=== PATIENT | female | born 1930 | race Caucasian/White ===

== ENCOUNTER 2018-01-06 16:14 | Inpatient (IN) ==
[2018-01-06] MEDS ORDERED: SALINE FLUSH 10ml SYRINGE IVF PRN (16:25)
--- NOTE | 2018-01-06 16:29 | Emergency Department Report ---
General Adult HPI - General Chief complaint: Shortness of Breath/Dyspnea Stated complaint: CHF exacerbation Time Seen by Provider: 01/06/18 16:25 Source: EMS Mode of arrival: EMS Limitations: altered mental status - History of Present Illness HPI narrative: 87 F presents to the emergency department with a chief complaint of difficulty breathing and alteration in mental status. Patient was seen and evaluated by her primary care physician earlier today and diagnosed with a CHF exacerbation. She was noted by snf staff to be less responsive than normal and to be hypoxic with an oxygen saturation in the 80s on room air. Patient was given Lasix 70 mg IV 1 by EMS prior to arrival to the emergency department. Patient was placed on CPAP prior to arrival to the emergency department as well. History is limited secondary to the patient's clinical condition. - Related Data Home Medications Medication Instructions Recorded Confirmed Acetaminophen [Acetaminophen Extra 1,000 mg PO HS #0 tab 07/01/15 01/06/18 Strength] Cetirizine HCl [Zyrtec] 10 mg PO HS #0 07/01/15 01/06/18 Cholecalciferol (Vitamin D3) 2,000 mg PO DAILY #0 07/01/15 01/06/18 [Vitamin D3] Lutein 20 mg PO DAILY #0 07/01/15 01/06/18 Omeprazole 40 mg PO ACB #0 07/01/15 01/06/18 Furosemide [Lasix 40 mg Tab] 40 mg PO DAILY 07/09/17 01/06/18 PEG 3350 17gm PACKET [Miralax] 17 gm PO DAILY 07/09/17 01/06/18 Spironolactone [Aldactone] 25 mg PO DAILY 07/09/17 01/06/18 Mag Hydrox/Aluminum Hyd/Simeth 30 ml PO Q4H PRN 07/21/17 01/06/18 [Alum-Mag Hydroxide-Simeth Liq] Magnesium Hydroxide [Milk of 15 - 30 ml PO DAILY PRN 07/21/17 01/06/18 Magnesia] Simethicone 125 mg PO HS 07/21/17 01/06/18 Acetaminophen [Tylenol] 500 - 1,000 mg PO BID PRN 01/06/18 01/06/18 Albuterol/Ipratropium [Duoneb] 1 unit AEROSOL TID 01/06/18 01/06/18 Arctic Mary Beth Oil 1,000 mg PO DAILY 01/06/18 01/06/18 Aspirin [Adult Aspirin] 81 mg PO NOON 01/06/18 01/06/18 Atorvastatin [Lipitor] 10 mg PO HS 01/06/18 01/06/18 Budesonide 0.5 mg IH BID 01/06/18 01/06/18 Calcium Carb/Vitamin D3/Vit K1 1 tab PO BID 01/06/18 01/06/18 [Viactiv Soft Chew Tablet] Dextromethorphan HBr/B-Jhonny 1 lozenge PO PRN PRN 01/06/18 01/06/18 [Cepacol Sorethroat-Cough Angela] Guaifenesin/Dextromethorphan 10 ml PO Q6H PRN 01/06/18 01/06/18 [Guaifenesin Dm Syrup] Guaifenesin/Dextromethorphan 10 ml PO HS 01/06/18 01/06/18 [Robitussin Cough-Chest Dm Liq] Multivitamin [One Daily 1 tab PO NOON 01/06/18 01/06/18 Multivitamin] Ondansetron Tab [Zofran Po] 4 mg PO Q8H PRN 01/06/18 01/06/18 Peg 3350 238 G Bottle [Miralax] 17 gm PO DAILY PRN 01/06/18 01/06/18 Tolterodine Tartrate [Detrol] 1 mg PO BID 01/06/18 01/06/18 guaiFENesin [Mucinex] 1,200 mg PO DAILY 01/06/18 01/06/18 Allergies Allergy/AdvReac Type Severity Reaction Status Date / Time No Known Allergies Allergy Verified 01/06/18 16:32 Review of Systems Limitations: ROS unobtainable due to patient's medical condition [facility] Patient Stated Medical History Hypertension Yes Other Cardiology Yes: heart failure Asthma Yes Chronic Obstructive Pulmonary Yes Disease (COPD) Pneumonia Yes Sleep Apnea No Gastroesophageal Reflux Yes Disease Other GI Yes: constipation Hx Incontinence Yes Other Hematologic Yes: THROMBOCYTOPENIA Osteoarthritis Yes Sepsis Yes Post Menopausal Yes Clinic Medical History (Last Updated 07/07/17 @ 13:04 by Laura Holman Mai) Pacemaker (Chronic Medical) Osteoarthritis involving multiple joints on both sides of body (Chronic Medical) Osteoporosis (Chronic Medical) DEXA 10/16/16. R femur T score -2.5 Thrombocytopenia (Chronic Medical) COPD with hypoxia (Chronic Medical) Venous stasis of lower extremity (Chronic Medical) Localized osteoporosis of spine (Chronic Medical) HTN (hypertension) (Chronic Medical) Multinodular goiter (Chronic Medical) Surgical History: Orthopedic surgery, Pacemaker Family History: Reviewed and Noncontributory. - Social History Smoking status: Never smoker Substance use type: does not use Alcohol intake frequency: does not drink Physical Exam - Limitations Limitations: altered mental status - General General appearance: other (Pt will open her eyes to painful stimuli and loud verbal command. Localizes pain. Maintaining and protecting airway on bipap. ) - Normal Exams: Head:: Normocephalic without trauma Eyes:: Pupils are PERRLA w/ EOMI, No scleral icterus, irritation, or foreign bodies noted ENMT:: No facial trauma, nasal exudates, pharyngeal erythema, or exudates are noted Neck:: Full range of motion, without adenopathy, JVD, bruits or thyromegaly Chest/Respirations:: Clear all kim (Coarse breath sounds bilaterally which are diminished. ), with good airflow, and symmetry bilaterally Cardiovascular:: Regular rate and rhythm, without murmur or gallop, Pulses 2+ all extremities, capillary refill, <2 seconds all extremities Abdomen:: Bowel sounds positive, soft, non-tender, non-distended, no hepatosplenomegaly, masses or bruits noted Lymphatic:: No lymphadenopathy, or lymphedema noted Musculoskeletal:: No tenderness, or deformity noted, good range of motion, all extremities Integumentary:: No rashes, hives, or bruising noted, hair and nails, without abnormality Medical Decision Making - [facility] Narrative Medical decision making narrative: Labs / Imaging were discussed in detail with the patient and family and questions are answered. Patient was given Lasix 70 mg IV x 1 by EMS immediately prior to arrival to the ED. Patient was given cefepime 1 g iv x 1 at 1800 when sepsis was considered. Patient was never hypotensive and did not have a lactic acid > 4.0 in the ED. She was discussed with Dr. Michaud from the hospitalist service who was in agreement with the current plan of management. Patient was placed on bipap upon arrival to the ED which she tolerated well and without difficulty. Patient was admitted to the service of the hospitalist in improved condition. No further orders from accepting physician who is in agreement with the current plan of management. Patient and family are in agreement with the current plan of management. Patient is a do not resuscitate which is confirmed with family members. Do not resuscitate form is present at bedside. - Differential Diagnosis CHF, COPD, PNA, Viral syndrome, metabolic disorder - Lab Data Result diagrams: 01/06/18 16:23 01/06/18 16:23 - Radiology Data CT Head: No acute processes. CXR: Impression: Bilateral pleural effusions and findings of significant congestive failure. Underlying pneumonia or aspiration cannot be excluded in the left lower lobe. Recommend clinical and laboratory correlation - EKG Data EKG #1 EKG results narrative: Electronic Ventricular Paced Rhythm. 101 bpm. NO STEMI. Critical Care Time Critical Care Time: Yes Total Critical Care Time: 47 Attestation: 47 minutes of critical care time was assessed to the patient due to the need for complex medical decision making, repeated assessment at the bedside, potential for decompensation. Critical care time was spent treating the patient , documenting the medical record, updating the family, and making telephone calls on the patient's behalf. Patient was placed upon BiPAP in the emergency department due to respiratory failure. Disposition Clinical Impression: Congestive heart failure (CHF) Qualifiers: Heart failure type: unspecified Heart failure chronicity: unspecified Qualified Code(s): I50.9 - Heart failure, unspecified Respiratory failure Qualifiers: Chronicity: unspecified Respiratory failure complication: unspecified whether with hypoxia or hypercapnia Qualified Code(s): J96.90 - Respiratory failure, unspecified, unspecified whether with hypoxia or hypercapnia Disposition: [place] [facility] [place] Care Condition: Critical Time of Disposition: 17:30 - Seen By: physician
--- NOTE | 2018-01-06 17:18 | XRay Report ---
Indication: cough PROCEDURE: XR chest 1V: Encounter: Initial Comparison: July 03, 2015 Findings: New moderate left and small right pleural effusions. Groundglass opacities throughout both lungs with lower lobe consolidation. No gross pneumothorax. Cardiac silhouette is moderately enlarged. Left dual lead cardiac pacemaker. Mediastinal contours are poorly evaluated due to the rotation. Pulmonary vascularity cannot be well evaluated on a supine radiograph. Impression: Bilateral pleural effusions and findings of significant congestive failure. Underlying pneumonia or aspiration cannot be excluded in the left lower lobe. Recommend clinical and laboratory correlation. .
[2018-01-06] MEDS ORDERED: FUROSEMIDE 40 MG/4 ML INJECTION IVP ONE (18:00)
[2018-01-06] MEDS ORDERED: CEFEPIME 1 GM in NS 100 ML IV ONE (18:00)
--- NOTE | 2018-01-06 18:50 | History & Physical Report ---
History of Present Illness Date: 01/07/18 Chief complaint: SOA HPI: Ivonne Nieves is an 87 y/o resident of [facility] who has recently been seen/ treated by Emerald Correa for COPD exacerbation - those notes were reviewed for collateral hx as pt was nonresponsive in ED. She developed increased SOA on 01/05/18 without cough. On 01/06/18, a prednisone taper and Lasix were restarted. She's also been on DuoNeb treatments. She was saturating 90-93% on 3L of O2, which is worse than baseline. She's had conversational dyspnea. Per records, she 's been isolating herself to her room. She also c/o increased body aches. She denied fatigue/weakness. PO intake has been stable. She's denied fever/chills, dizziness, headache, URI sx. She denies abd pain, n/v/d. No dysuria. She does have some underlying memory problems thus ROS is somewhat limited at baseline. Pt's niece reports that [place] [facility] [place] reporting that she's been tired and more SOA, but up until the afternoon on 01/06/18 hadn't wanted to go to the hosp. CXR was pos for CHF, poss PNA. She was started on BiPAP. ProBNP was elevated. Renal function was preserved. She was diuresed with Lasix 40 mg IV x1 and started on cefepime for PNA. She was admitted to inpt status, los expected to exceed 2 overnights. Review of Systems ROS unobtainable: due to mental status Past Medical History Medical History: Medical History (Last Updated 07/07/17 @ 13:04 by Laura Holman Mai) Pacemaker (Chronic) Osteoarthritis involving multiple joints on both sides of body (Chronic) Osteoporosis (Chronic) DEXA 10/16/16. R femur T score -2.5 Thrombocytopenia (Chronic) COPD with hypoxia (Chronic) Venous stasis of lower extremity (Chronic) Localized osteoporosis of spine (Chronic) HTN (hypertension) (Chronic) Multinodular goiter Surgical History: Tonsilectomy. Pacemaker placement secondary to complete heart block. Left total hip replacement. Colonoscopy with polyp removal resulting in bowel perforation. Echo in 2011 showed mild-mod valvular disease with normal EF and normal diastolic parameters. Family History Updates: Father - in his late 40's secondary to VT, CAD and hypertension. Mother - healthy and of old age around the age of 96. Sister - healthy and living in [place]. Brother - alchol abuse. Family History: As Above - Social History Smoking status: Never smoker Substance use type: does not use Alcohol intake frequency: does not drink Housing: [facility] Medications Home Medications Medication Instructions Recorded Confirmed Type Acetaminophen [Acetaminophen Extra 1,000 mg PO HS #0 tab 07/01/15 01/06/18 History Strength] Cetirizine HCl [Zyrtec] 10 mg PO HS #0 07/01/15 01/06/18 History Cholecalciferol (Vitamin D3) 2,000 mg PO DAILY #0 07/01/15 01/06/18 History [Vitamin D3] Lutein 20 mg PO DAILY #0 07/01/15 01/06/18 History Omeprazole 40 mg PO ACB #0 07/01/15 01/06/18 History Furosemide [Lasix 40 mg Tab] 40 mg PO DAILY 07/09/17 01/06/18 History PEG 3350 17gm PACKET [Miralax] 17 gm PO DAILY 07/09/17 01/06/18 History Spironolactone [Aldactone] 25 mg PO DAILY 07/09/17 01/06/18 History Mag Hydrox/Aluminum Hyd/Simeth 30 ml PO Q4H PRN 07/21/17 01/06/18 History [Alum-Mag Hydroxide-Simeth Liq] Magnesium Hydroxide [Milk of 15 - 30 ml PO DAILY PRN 07/21/17 01/06/18 History Magnesia] Simethicone 125 mg PO HS 07/21/17 01/06/18 History Acetaminophen [Tylenol] 500 - 1,000 mg PO BID PRN 01/06/18 01/06/18 History Albuterol/Ipratropium [Duoneb] 1 unit AEROSOL TID 01/06/18 01/06/18 History Arctic Mary Beth Oil 1,000 mg PO DAILY 01/06/18 01/06/18 History Aspirin [Adult Aspirin] 81 mg PO NOON 01/06/18 01/06/18 History Atorvastatin [Lipitor] 10 mg PO HS 01/06/18 01/06/18 History Budesonide 0.5 mg IH BID 01/06/18 01/06/18 History Calcium Carb/Vitamin D3/Vit K1 1 tab PO BID 01/06/18 01/06/18 History [Viactiv Soft Chew Tablet] Dextromethorphan HBr/B-Jhonny 1 lozenge PO PRN PRN 01/06/18 01/06/18 History [Cepacol Sorethroat-Cough Angela] Guaifenesin/Dextromethorphan 10 ml PO Q6H PRN 01/06/18 01/06/18 History [Guaifenesin Dm Syrup] Guaifenesin/Dextromethorphan 10 ml PO HS 01/06/18 01/06/18 History [Robitussin Cough-Chest Dm Liq] Multivitamin [One Daily 1 tab PO NOON 01/06/18 01/06/18 History Multivitamin] Ondansetron Tab [Zofran Po] 4 mg PO Q8H PRN 01/06/18 01/06/18 History Peg 3350 238 G Bottle [Miralax] 17 gm PO DAILY PRN 01/06/18 01/06/18 History Tolterodine Tartrate [Detrol] 1 mg PO BID 01/06/18 01/06/18 History guaiFENesin [Mucinex] 1,200 mg PO DAILY 01/06/18 01/06/18 History Ativan (lorazepam) 0.5 mg tablet 0.5 mg PO HS PRN #30 tab 01/07/18 Rx Allergies Allergy/AdvReac Type Severity Reaction Status Date / Time No Known Allergies Allergy Verified 01/06/18 16:32 Exam Vital Signs: Temperature 97.8 F 01/06/18 16:14 Pulse Rate 112 H 01/06/18 16:14 Respiratory Rate 28 H 01/06/18 16:14 Blood Pressure 114/74 01/06/18 16:14 Pulse Oximetry 93 01/06/18 16:14 Height/Weight/BMI: Height 1.65 m Weight 75.9 kg - Constitutional Present: well nourished, well developed - Routine HEENT Exam Head: Present: normocephalic Eye: Absent: PERRL, conjunctival icterus, scleral injection - Routine Neck Exam Present: supple - Routine Respiratory Exam Present: decreased breath sounds, crackles, diminished air movement - Routine Cardiovascular Exam Present: S1, S2, irregular rhythm - Routine Abdominal Exam Present: distended (mild). Absent: normoactive bowel sounds (hypoactive) - Routine Extremities Exam Present: no edema, extremity cold to touch (b/l feet) - Routine Skin Exam Present: dry, pallor - Routine Neurological Exam Absent: alert (nonresponsive), oriented X3 pt held her eyes closed and moaned. She resisted when I tried to open them. Her pupils were minimally responsive. She was unable to focus on me. She could not follow any commands. She did not respond to the lab stick. - Routine Psychiatric Exam Present: unable to assess Results - Labs CBC & Chem 7: 01/07/18 05:26 01/07/18 05:26 - Imaging and Cardiology Chest x-ray Status: image reviewed by me Additional comments: Bilateral pleural effusions and findings of significant congestive failure. Underlying pneumonia or aspiration cannot be excluded in the left lower lobe. Recommend clinical and laboratory correlation. Assessment and Plan (1) CHF (congestive heart failure) Current visit: Yes Status: Chronic Assessment and Plan: Assessment CHF exac. Asthma/COPD with exac. acute encephalopathy hyperkalemia Hyperlipidemia HTN Anxiety Vit D deficiency OA Allergic rhinitis Constipation Insomnia Oropharyngeal dysphagia GERD OAB Plan Admit to CCU, inpt status under the hosp service. Continue diuresis with Lasix 40 mg IV BID, BiPAP, DuoNebs. Echo. Trend trop. ABG in am. Place Young for accurate I/O. Sx & clinical scenario more consistent with CHF vs PNA or COPD exac. - nonetheless cannot r/o; cover w/ azithro/rocephin. -however, sepsis w/u pending -consider IV steroids Head CT pending. NPO until cleared by ST. D/W jeff. Pt's sister is DPOA. DNR status. Pt critically ill: 40 minutes spent w/ pt and generating plan, discussing with ED providers, attending physician. DVT Prophylaxis: SCD's GI Prophylaxis: Protonix Resuscitation Status: Do Not Resuscitate - Time spent with patient Time with patient PN: 35 minutes - Physician Narrative Physician: other Narrative: Date: 01/06/18 Time: 1844 Seen and examined patient in tandem with nurse practitioner Cristina Miller. Agree with history, physical, assessment and plan. Comprehensive physical findings correlate to the above note. HPI: family members on-site in the emergency room give corroborating story to Cristina Miller's note that the patient had gradual decline over the last 3 days with worsening somnolence in the last 24 hours. PMH/SH/FH: as per above ROS: no further information from 10 system review due to mental status Exam: Gen.: unresponsive and in obvious respiratory distress HEENT: normocephalic atraumatic, oral mucosa moderately dry neck: no lymphadenopathy no jugular venous distention respiratory: coarse breath sounds bilaterally with decreased air transmission cardiovascular: cardiovascular S1 S2 no adventitious murmurs rubs or gallops abdomen/GI: soft nondistended with bowel sounds extremities: good peripheral perfusion with no edema skin/integument: no significant injuries or edema neuro: minimally responsive but protecting airway. No focal deficits appreciable psych: unable to assess Labs: reviewed imaging: appears more fluid overload than appreciable pneumonia by my interpretation EKG: within normal limits Assessment and plan: acute respiratory distress: do the patient's level of consciousness I think she is too high risk to place on medical floor BiPAP. She will need one-on-one and so will go to the ICU. The biggest concern at this point would be emesis while in the mask. Congestive heart failure exacerbation. Patient is being given Lasix this time. Acute COPD exacerbation: Solu-Medrol and nebulized albuterol with supportive respiratory care. Antibiotics are been given for the suggestion of infection but no acute infiltrates seen on chest x-ray. Acute encephalopathy: likely respiratory with elevated carbon dioxide retention. BiPAP is treatment and arterial blood gas to confirm for complete list see above patient meets inpatient criteria 40 minutes critical care time performed without procedures Documented on Dragon speech to text. Efforts to correct speech recognition errors performed, but variation may exist Hospital Course Summary Disclaimer: The visit summary below is not to be considered part of the above Progress Note. Hospital Course: 01/06/18: Admit to CCU Admit, inpt status under the hosp service. Continue diuresis with Lasix 40 mg IV BID, BiPAP, DuoNebs. Echo. Trend trop. ABG in am. Place Hannah for accurate I/O. Sx & clinical scenario more consistent with CHF vs PNA or COPD exac. - nonetheless cannot r/o; cover w/ azithro/rocephin. -however, sepsis w/u pending -consider IV steroids Head CT pending. NPO until cleared by ST. D/W jeff. Pt's sister is DPOA. DNR status.
[2018-01-06] MEDS ORDERED: ONDANSETRON 4 MG/2 ML INJECTION IVP PRN (20:13)
[2018-01-06] MEDS ORDERED: ACETAMINOPHEN 650 MG SUPPOSITORY PR PRN (20:13)
[2018-01-06] MEDS: FUROSEMIDE 40 MG/4 ML INJECTION IVP SCH (21:02)
[2018-01-06] MEDS: CEFTRIAXONE 1 G in NS 100 ML IV SCH (21:33)
[2018-01-06 21:50] VITALS: BMI 28.0
[2018-01-06] MEDS: AZITHROMYCIN IV 500 MG in NS 250ml 250 ML IV SCH (22:17)
[2018-01-07] MEDS: BUDESONIDE INH.SOLN 0.5mg/2ml NEB AEROSOL SCH ×2 (07:13→20:40)
[2018-01-07] MEDS: ALBUTEROL/IPRATROPIUM 2.5mg-0.5mg/3ml NEB AEROSOL SCH ×3 (07:13→20:40)
--- NOTE | 2018-01-07 08:02 | CT Scan Report ---
Indication: AMS PROCEDURE: CT head/brain wo con: Encounter: Initial Comparison: None Technique: Axial CT images through the head were performed without contrast. Iterative Reconstruction dose reducing technique was utilized. FINDINGS: Moderate atrophy. The ventricles are of normal size, shape, and contour for the patient's age. There are extensive areas of low attenuation in the white matter which most likely represent changes from chronic microvascular ischemia. The brainstem, cerebellum, and cerebral hemispheres otherwise have a normal morphology and CT attenuation. There is no evidence of midline displacement. No hemorrhage, signs of acute territorial stroke, mass effect, mass lesions, or edema is evident. The visualized portions of the skull base, midface, and calvarium demonstrate no abnormality. The paranasal sinuses are well aerated and free of significant disease. The tympanic and mastoid cavities appear normal. IMPRESSION: No acute intracranial abnormality or hemorrhage. There is a preliminary report by [facility]. .
[2018-01-07] MEDS: PANTOPRAZOLE 40 MG INJECTION IVP SCH (08:53)
[2018-01-07] MEDS: FUROSEMIDE 40 MG/4 ML INJECTION IVP SCH ×2 (08:59→20:55)
--- NOTE | 2018-01-07 16:17 | Progress Note ---
- Date 01/07/18 Subjective: Patient reportedly more browsable early in the morning with a confused state at best. By the time of my visitation with her she was again very somnolent resting on BiPAP. Objective Vital signs: Temperature 99.7 F 01/07/18 08:15 Pulse Rate 101 H 01/07/18 12:15 Respiratory Rate 32 H 01/07/18 13:00 Blood Pressure 141/59 H 01/07/18 12:00 Pulse Oximetry 97 01/07/18 13:00 Rhythm: Premature Atrial Contractions Cardiac Ectopy: Rare PVC's Height/Weight/BMI: Height 5 ft 4 in Weight 73.8 kg Body Mass Index 28.0 - Constitutional Present: mild distress, well nourished, well developed - Routine HEENT Exam Head: Present: normocephalic, atraumatic Eye: Present: EOMI ENT: Present: mucous membranes moist, dentition normal - Routine Respiratory Exam Present: patient mechanically ventilated, CTA bilaterally, respiratory distress , wheezes, distant breath sounds - Routine Cardiovascular Exam Present: RRR. Absent: murmur - Routine Abdominal Exam Present: soft, normoactive bowel sounds, non distended. Absent: tenderness - Routine Extremities Exam Present: normal capillary refill - Routine Skin Exam Present: dry, warm - Routine Neurological Exam Present: alert, oriented X3, CN II-XII intact - Routine Lymphatic Exam Lymphatic: Absent: adenopathy - Routine Psychiatric Exam Present: normal affect Results - Labs CBC & Chem 7: 01/07/18 05:26 01/07/18 05:26 Microbiology Results: Microbiology 01/06/18 19:24 Peripheral/Iv Start Blood Culture - Preliminary Culture Initiated - Results Pending 01/06/18 19:22 Peripheral/Iv Start Blood Culture - Preliminary Culture Initiated - Results Pending - ABG Interpretation ABG results: 01/07/18 04:04 ABG pH 7.402 ABG pCO2 80 H* ABG pO2 66.2 L ABG HCO3 50.0 H ABG Total CO2 52.5 H ABG O2 Saturation 91.2 L ABG Base Excess 20.3 H Assessment and Plan (1) CHF (congestive heart failure) Current visit: Yes Status: Chronic Assessment and Plan: Assessment CHF exac. Asthma/COPD with exac. acute encephalopathy hyperkalemia Hyperlipidemia HTN Anxiety Vit D deficiency OA Allergic rhinitis Constipation Insomnia Oropharyngeal dysphagia GERD OAB Plan patient remains critically ill. Arterial blood gases interpreted and PCO2 at 4 AM remained at 80. I'm not certain as to why she is retaining quite so much carbon dioxide. Ordered a repeat at 12 hours. Overall respiratory distress appears to be improving slightly but she is nowhere near able to wean off BiPAP this time. Family is asking if there is additional candidate requires performed. At this point without intubation I think that she is nearing maximal medical need assuming that she remains hemodynamically stable: she is on antibiotics respiratory treatment ventilatory support noninvasively and getting diuretics to offload fluids. Patient will remain in the ICU on BiPAP with current treatment. HCO2 retention may yet improve on the current treatment given little more time. Failing this will discuss with pulmonary. Starting patient on Lovenox prophylactic dose 35 minutes critical care time performed thus far today with no procedures - Time spent with patient Time with patient PN: 35 minutes - Physician Narrative Physician: other Narrative: Date: 01/07/18 Time: 1610 Hospital Course Summary Disclaimer: The visit summary below is not to be considered part of the above Progress Note. Hospital Course: 01/06/18: Admit to CCU Admit, inpt status under the hosp service. Continue diuresis with Lasix 40 mg IV BID, BiPAP, DuoNebs. Echo. Trend trop. ABG in am. Place Hannah for accurate I/O. Sx & clinical scenario more consistent with CHF vs PNA or COPD exac. - nonetheless cannot r/o; cover w/ azithro/rocephin. -however, sepsis w/u pending -consider IV steroids Head CT pending. NPO until cleared by ST. D/W jeff. Pt's sister is DPOA. DNR status.
[2018-01-07] MEDS: ENOXAPARIN 40 MG/0.4 ML INJECTION SQ SCH (16:56)
[2018-01-07] MEDS: AZITHROMYCIN IV 500 MG in NS 250ml 250 ML IV SCH (20:55)
[2018-01-07] MEDS: CEFTRIAXONE 1 G in NS 100 ML IV SCH (20:55)
[2018-01-08] MEDS: BUDESONIDE INH.SOLN 0.5mg/2ml NEB AEROSOL SCH ×2 (06:30→19:54)
[2018-01-08] MEDS: ALBUTEROL/IPRATROPIUM 2.5mg-0.5mg/3ml NEB AEROSOL SCH ×3 (06:30→19:54)
[2018-01-08] MEDS: ENOXAPARIN 40 MG/0.4 ML INJECTION SQ SCH (09:41)
[2018-01-08] MEDS: FUROSEMIDE 40 MG/4 ML INJECTION IVP SCH ×2 (09:42→22:27)
[2018-01-08] MEDS: PANTOPRAZOLE 40 MG INJECTION IVP SCH (09:42)
--- NOTE | 2018-01-08 12:05 | Echocardiogram ---
DATE OF PROCEDURE January 07, 2018. REFERRING PHYSICIAN Binh Michaud MD This is a two-dimensional echo with spectral Doppler, color-flow and M-mode. It was obtained in a patient with congestive heart failure. Left atrial dimension is normal. Left ventricle end-diastolic dimension is normal. Left ventricle wall thickness is increased. LV systolic function is normal with ejection fraction of about 65%. Right atrium is normal. Right ventricle is normal. Aortic root dimension is normal. Mitral annulus is calcified. Mitral valve leaflets are sclerotic with trace of mitral regurgitation. Aortic valve shows fibrocalcific changes with no stenosis. Trace of aortic insufficiency is present. Tricuspid valve shows moderate tricuspid regurgitation with severe pulmonary hypertension with estimated pulmonary artery systolic pressure of 72. Pulmonary valve shows mild pulmonary insufficiency. There is there is trace of pericardial effusion with no echocardiographic evidence of tamponade. IMPRESSION 1. Normal LV systolic function with ejection fraction of about 65%. 2. Trace of pericardial effusion with no echocardiographic evidence of tamponade. 3. Concentric left ventricular hypertrophy. 4. Device wires in the right heart. 5. Mitral annulus calcification with mitral sclerosis and trace of mitral regurgitation. 6. Aortic sclerosis with trace of aortic insufficiency. 7. Moderate tricuspid regurgitation with severe pulmonary hypertension with estimated pulmonary artery systolic pressure of 72. 8. Mild pulmonary insufficiency. MTDD
[2018-01-08] MEDS ORDERED: NS FLUSH BAG 500ml IV PRN (14:26)
--- NOTE | 2018-01-08 19:01 | Progress Note ---
- Date 01/08/18 Subjective: Seen in the ICU: and the patient is remarkably more alert and conversant at this point. Patient does have a firm believe that she is soon to "see her maker" but does this in a half jesting tone. She is denying any new problems on 10 system review but admits to being moderately breathless at rest Objective Vital signs: Temperature 98.8 F 01/08/18 15:25 Pulse Rate 83 01/08/18 15:25 Respiratory Rate 28 H 01/08/18 15:25 Blood Pressure 123/59 01/08/18 15:25 Pulse Oximetry 99 01/08/18 15:25 Rhythm: Premature Atrial Contractions Cardiac Ectopy: Rare PVC's Height/Weight/BMI: Height 5 ft 4 in Weight 73 kg Body Mass Index 28.0 - Constitutional Present: well nourished, well developed, obese - Routine HEENT Exam Eye: Present: EOMI ENT: Present: mucous membranes moist, dentition normal - Routine Respiratory Exam Present: accessory muscle use, wheezes, crackles - Routine Cardiovascular Exam Present: RRR. Absent: murmur - Routine Abdominal Exam Present: soft, normoactive bowel sounds, non distended. Absent: tenderness - Routine Extremities Exam Present: normal capillary refill - Routine Skin Exam Present: dry, warm - Routine Neurological Exam Present: alert, oriented X3, CN II-XII intact - Routine Lymphatic Exam Lymphatic: Absent: adenopathy - Routine Psychiatric Exam Present: normal affect Results - Labs CBC & Chem 7: 01/08/18 10:17 01/09/18 12:24 Microbiology Results: Microbiology 01/06/18 19:22 Peripheral/Iv Start Blood Culture - Preliminary No Growth After 1 Day 01/06/18 19:24 Peripheral/Iv Start Blood Culture - Preliminary No Growth After 1 Day - ABG Interpretation ABG results: 01/07/18 01/07/18 01/08/18 04:04 17:01 10:11 ABG pH 7.402 7.447 7.510 H ABG pCO2 80 H* 70 H* 58 H ABG pO2 66.2 L 95.9 65.3 L ABG HCO3 50.0 H 48.0 H 46.2 H ABG Total CO2 52.5 H 50.1 H 48.0 H ABG O2 Saturation 91.2 L 97.3 93.6 L ABG Base Excess 20.3 H 19.6 H 19.4 H Assessment and Plan Assessment and Plan: Assessment CHF exac. Asthma/COPD with exac. acute encephalopathy hyperkalemia Hyperlipidemia HTN Anxiety Vit D deficiency OA Allergic rhinitis Constipation Insomnia Oropharyngeal dysphagia GERD OAB Plan at this time will take the patient out of the ICU. She is weaned off BiPAP now. Will continue antibiotics. And will give supplemental oxygen at high rate of delivery but attempt weaning is down to a baseline of 34 L. Acute encephalopathy appears resolved. COPD and congestive heart failure are still ongoing but will decrease the rate of diuresis at this time. Move the patient out of ICU to the medical floor - Physician Narrative Narrative: Date: 01/08/18 Time: 1900 Hospital Course Summary Disclaimer: The visit summary below is not to be considered part of the above Progress Note. Hospital Course: 01/06/18: Admit to CCU Admit, inpt status under the hosp service. Continue diuresis with Lasix 40 mg IV BID, BiPAP, DuoNebs. Echo. Trend trop. ABG in am. Place Hannah for accurate I/O. Sx & clinical scenario more consistent with CHF vs PNA or COPD exac. - nonetheless cannot r/o; cover w/ azithro/rocephin. -however, sepsis w/u pending -consider IV steroids Head CT pending. NPO until cleared by ST. Terry/W jeff. Pt's sister is DPOA. DNR status.
[2018-01-08] MEDS: CEFTRIAXONE 1 G in NS 100 ML IV SCH (22:27)
[2018-01-08] MEDS: AZITHROMYCIN IV 500 MG in NS 250ml 250 ML IV SCH (22:36)
[2018-01-09] MEDS: ACETAMINOPHEN 325 MG TABLET PO PRN (00:15)
[2018-01-09] MEDS: FUROSEMIDE 40 MG/4 ML INJECTION IVP SCH ×2 (09:41→22:05)
[2018-01-09] MEDS: ENOXAPARIN 40 MG/0.4 ML INJECTION SQ SCH (09:41)
[2018-01-09] MEDS: PANTOPRAZOLE 40 MG INJECTION IVP SCH (09:41)
--- NOTE | 2018-01-09 10:27 | XRay Report ---
Indication: interval change, poss PNA PROCEDURE: XR chest 1V: Encounter: Initial Comparison: January 06, 2018 Findings: Improving aeration of the lungs with decreasing pleural effusions. Patchy interstitial and airspace opacities remain in the mid to lower lung kim. No gross pneumothorax. Cardiac silhouette is partially obscured by the effusions. Mediastinal contours are grossly stable. Pulmonary vascularity remains prominent. Left pacemaker. Impression: Improving edema with decreasing effusions. .
[2018-01-09] MEDS: ALBUTEROL/IPRATROPIUM 2.5mg-0.5mg/3ml NEB AEROSOL SCH ×3 (10:50→20:18)
[2018-01-09] MEDS: BUDESONIDE INH.SOLN 0.5mg/2ml NEB AEROSOL SCH ×2 (10:54→20:18)
--- NOTE | 2018-01-09 11:51 | Progress Note ---
- Date 01/09/18 Subjective: Ivonne was finishing up breakfast. She reported sleeping well last night. She still feels a little "out of it" but compared to seeing her on evening she is markedly improved (at that time was nonresponsive). She is A&O x3. She denies feeling short of breath. I asked if she's been out of bed yet and she denied and in fact stated she doesn't want to get out of bed. She denies any abdominal pain or n/v. Objective Vital signs: Temperature 98.3 F 01/09/18 07:58 Pulse Rate 78 01/09/18 09:00 Respiratory Rate 28 H 01/09/18 10:54 Blood Pressure 134/65 01/09/18 07:58 Pulse Oximetry 96 01/09/18 10:54 Rhythm: Premature Atrial Contractions Cardiac Ectopy: Rare PVC's Height/Weight/BMI: Height 1.63 m Weight 71.5 kg Body Mass Index 28.0 - Constitutional Present: no acute distress, well nourished, well developed - Routine HEENT Exam Head: Present: normocephalic Eye: Present: PERRL. Absent: conjunctival icterus, scleral injection ENT: Present: mucous membranes moist - Routine Respiratory Exam Present: decreased breath sounds, wheezes (faint), crackles (mild b/l bases) - Routine Cardiovascular Exam Present: S1, S2, irregular rhythm - Routine Abdominal Exam Present: soft, normoactive bowel sounds, non distended, non tender - Routine Extremities Exam Present: no edema, pulses intact, normal capillary refill. Absent: calf tenderness - Routine Skin Exam Present: intact, dry, warm - Routine Neurological Exam Present: alert, oriented X3, CN II-XII intact, normal speech - Routine Psychiatric Exam Present: normal affect, normal thought process, cooperative Results - Labs CBC & Chem 7: 01/08/18 10:17 01/09/18 12:24 Microbiology Results: Microbiology 01/06/18 19:24 Peripheral/Iv Start Blood Culture - Preliminary No Growth After 2 Days 01/06/18 19:22 Peripheral/Iv Start Blood Culture - Preliminary No Growth After 2 Days - ABG Interpretation ABG results: 01/07/18 01/08/18 17:01 10:11 ABG pH 7.447 7.510 H ABG pCO2 70 H* 58 H ABG pO2 95.9 65.3 L ABG HCO3 48.0 H 46.2 H ABG Total CO2 50.1 H 48.0 H ABG O2 Saturation 97.3 93.6 L ABG Base Excess 19.6 H 19.4 H Assessment and Plan (1) CHF (congestive heart failure) Current visit: Yes Status: Chronic Assessment and Plan: Assessment CHF exac. - diastolic Elevated trop, likely type 2 AZ from CO2 retention/hypoxia Asthma/COPD with exac. CO2 narcosis - improved acute encephalopathy - resolved hyperkalemia - resolved Severe pulmonary HTN Moderate TR, mild PI Hyperlipidemia HTN Anxiety Vit D deficiency OA Allergic rhinitis Constipation Insomnia Oropharyngeal dysphagia GERD OAB Plan Improving though still on high-flow o2 (Vapotherm). Repeat BMP to assess CO2. ABG in am. CXR from yesterday personally reviewed - improving edema Repeat trop to ensure downward trend. Minimal elevation noted consistent with type 2 AZ from hypoxia/CO2 retention or possibly CHF and potential chronic trop leak. She denies anginal symptoms. Resume home ASA and Lipitor. Negative fluid balance with declining weight. Continue with Lasix 40 mg IV BID; resume home spironolactone (K was down to 3.6 yest - pending today). Repeat CXR tomorrow am and consider transitioning to home dose Lasix 40 mg PO daily. Start oral steroids, Pred 40 mg daily. Cont Rocephin/Nebs/Pulmicort for COPD exac. Minimal wheezing on exam. Increase activity level as tolerated. Consult PT/OT for the morning. Echo report: IMPRESSION 1. Normal LV systolic function with ejection fraction of about 65%. 2. Trace of pericardial effusion with no echocardiographic evidence of tamponade. 3. Concentric left ventricular hypertrophy. 4. Device wires in the right heart. 5. Mitral annulus calcification with mitral sclerosis and trace of mitral regurgitation. 6. Aortic sclerosis with trace of aortic insufficiency. 7. Moderate tricuspid regurgitation with severe pulmonary hypertension with estimated pulmonary artery systolic pressure of 72. 8. Mild pulmonary insufficiency. DVT Prophylaxis: Lovenox GI Prophylaxis: Protonix Resuscitation Status: Do Not Resuscitate - Physician Narrative Narrative: Date: 01/09/18 Time: 1148 Seen and examined patient on same day as nurse practitioner Cristina Miller. Agree with her above comments, physical, assessment and plan. Comprehensive physical findings correlate to the above note. Subjective: patient states that she is breathing better and feels like she is working much less hard to breathe this point. Veins on highflown nasal cannula however. Exam: Gen.:no apparent distress, browsable and in good humor HEENT: normocephalic atraumatic, oral mucosa moderately dry neck: no lymphadenopathy no jugular venous distention respiratory: almost absent now are the crackles bilaterally. Patient has good excursion cardiovascular: cardiovascular S1 S2 no adventitious murmurs rubs or gallops abdomen/GI: soft nondistended with bowel sounds extremities: good peripheral perfusion with no edema skin/integument: no significant injuries or edema neuro: alert and oriented. No focal deficits appreciable psych: mood and appropriate a rather upbeat Labs: reviewed imaging: no acute processes Assessment and plan: primary dysfunction appears to be a combination of severe COPD with compensated carbon dioxide retention and some congestive heart failure initially overload. BiPAP was used but patient has recovered enough that she does not appear to have further need of it at this time. I've discussed this with family is concerned that she may need BiPAP on a regular basis. I assured them that would this does become the case that we or whoever is treating her at that time can address this with one of the respiratory equipment companies. Documented on Dragon speech to text. Efforts to crack speech recognition errors performed, but variation may exist Hospital Course Summary Disclaimer: The visit summary below is not to be considered part of the above Progress Note. Hospital Course: 01/06/18: Admit to CCU Admit, inpt status under the hosp service. Continue diuresis with Lasix 40 mg IV BID, BiPAP, DuoNebs. Echo. Trend trop. ABG in am. Place Young for accurate I/O. Sx & clinical scenario more consistent with CHF vs PNA or COPD exac. - nonetheless cannot r/o; cover w/ azithro/rocephin. -however, sepsis w/u pending -consider IV steroids Head CT pending. NPO until cleared by . D/W jeff. Pt's sister is DPOA. DNR status. 01/07 patient remains critically ill. Arterial blood gases interpreted and PCO2 at 4 AM remained at 80. I'm not certain as to why she is retaining quite so much carbon dioxide. Ordered a repeat at 12 hours. Overall respiratory distress appears to be improving slightly but she is nowhere near able to wean off BiPAP this time. Family is asking if there is additional candidate requires performed. At this point without intubation I think that she is nearing maximal medical need assuming that she remains hemodynamically stable: she is on antibiotics respiratory treatment ventilatory support noninvasively and getting diuretics to offload fluids. Patient will remain in the ICU on BiPAP with current treatment. HCO2 retention may yet improve on the current treatment given little more time. Failing this will discuss with pulmonary. Starting patient on Lovenox prophylactic dose 01/09 Improving though still on high-flow o2 (Vapotherm). Repeat BMP to assess CO2. ABG in am. CXR from yesterday personally reviewed - improving edema Repeat trop to ensure downward trend. Minimal elevation noted consistent with type 2 AZ from hypoxia/CO2 retention or possibly CHF and potential chronic trop leak. She denies anginal symptoms. Resume home ASA and Lipitor. Negative fluid balance with declining weight. Continue with Lasix 40 mg IV BID; resume home spironolactone (K was down to 3.6 yest - pending today). Repeat CXR tomorrow am and consider transitioning to home dose Lasix 40 mg PO daily. Start oral steroids, Pred 40 mg daily. Cont Rocephin/Nebs/Pulmicort for COPD exac. Minimal wheezing on exam. Increase activity level as tolerated. Consult PT/OT for the morning. Echo report: IMPRESSION 1. Normal LV systolic function with ejection fraction of about 65%. 2. Trace of pericardial effusion with no echocardiographic evidence of tamponade. 3. Concentric left ventricular hypertrophy. 4. Device wires in the right heart. 5. Mitral annulus calcification with mitral sclerosis and trace of mitral regurgitation. 6. Aortic sclerosis with trace of aortic insufficiency. 7. Moderate tricuspid regurgitation with severe pulmonary hypertension with estimated pulmonary artery systolic pressure of 72. 8. Mild pulmonary insufficiency.
[2018-01-09] MEDS ORDERED: ACETAMINOPHEN 500 MG TABLET PO PRN (12:02)
[2018-01-09] MEDS ORDERED: SIMETHICONE 125 MG CHEWABLE TABLET PO PRN (12:02)
[2018-01-09] MEDS: ASPIRIN *EC* 81 MG TABLET PO SCH (14:11)
[2018-01-09] MEDS ORDERED: LORazepam 0.5 MG TABLET PO PRN (18:58)
[2018-01-09] MEDS: ATORVASTATIN 10 MG TABLET PO SCH (22:06)
[2018-01-09] MEDS: ACETAMINOPHEN 500 MG TABLET PO SCH (22:06)
[2018-01-09] MEDS: CETIRIZINE 10 MG TABLET PO SCH (22:06)
[2018-01-09] MEDS: TOLTERODINE 2 MG TABLET PO SCH (22:07)
[2018-01-10] MEDS: ALBUTEROL/IPRATROPIUM 2.5mg-0.5mg/3ml NEB AEROSOL SCH ×3 (07:15→19:36)
[2018-01-10] MEDS: BUDESONIDE INH.SOLN 0.5mg/2ml NEB AEROSOL SCH ×2 (07:15→19:36)
[2018-01-10] MEDS: OMEPRAZOLE 20 MG CAPSULE PO SCH (07:26)
--- NOTE | 2018-01-10 08:08 | XRay Report ---
Indication: f/u edema XR chest 1V: Comparison: 01/08/2018 Technique: Single portable chest Findings: Since the previous examination there is just minimal improvement in the lung bases. There still a moderate sized pleural effusion persisting on the left side. Heart is similar. Permanent pacemaker is in position. Mildly increased interstitial markings persist. Impression: Only minimal improvement in the appearance the chest with continued moderate size left-sided pleural effusion and some mildly increased interstitial markings bilaterally. Parotid pacemaker in position with no overt central vascular congestion identified .
[2018-01-10] MEDS: AZITHROMYCIN 500 MG TABLET PO SCH (10:16)
[2018-01-10] MEDS: FUROSEMIDE 40 MG/4 ML INJECTION IVP SCH (10:17)
[2018-01-10] MEDS: ENOXAPARIN 40 MG/0.4 ML INJECTION SQ SCH (10:17)
[2018-01-10] MEDS: FUROSEMIDE 40 MG TABLET PO SCH (10:17)
[2018-01-10] MEDS: GUAIFENESIN LA 600 MG TABLET PO SCH (10:18)
[2018-01-10] MEDS: TOLTERODINE 2 MG TABLET PO SCH ×2 (10:20→20:50)
[2018-01-10] MEDS: SPIRONOLACTONE 25 MG TABLET PO SCH (10:21)
[2018-01-10] MEDS: POLYETHYL GLYCOL 3350 17gm PACKET PO SCH (10:21)
[2018-01-10] MEDS ORDERED: IOHEXOL 300mg/ml 75ml INJECTION ONE (10:59)
[2018-01-10] MEDS ORDERED: SALINE FLUSH 10ml SYRINGE ONE (10:59)
--- NOTE | 2018-01-10 12:57 | CT Scan Report ---
Indication: 10L O2 dependant w/ Effusions, Need tapped? CT chest w con: Comparison: CT radiograph 01/10/2018 CT chest 07/02/2015 Technique: Patient scanned utilizing dose reduction imaging technology from above the thoracic inlet to below the diaphragms after proximal a 75 cc Omni 300 intravenous contrast is used. Reformatted sagittal and coronal images are also provided. Findings: Patient shows a significantly increased kyphotic deformity. The patient shows bilateral pleural effusions and bibasilar lower lobe partial atelectasis. The patient did not demonstrate obvious findings that would support a loculated effusions as there is no nondependent fluid collection identified. Patient shows mild cardiac prominence with a permanent pacemaker in position. No pathologic adenopathy is appreciated. No abnormal dilatation of the aorta noted. Impression: 1. Patient shows bilateral pleural effusions and partial collapse of both lower lobes although, there is no fluid collection that appears to be clearly in a nondependent position to support significant loculated fluid. 2. Significantly increased kyphosis with degenerative changes and bridging osteophytes at multiple locations. 3. Mild cardiac prominence some of which may be accentuated by the kyphotic curvature. Patient shows a permanent pacemaker in position. .
[2018-01-10] MEDS: ASPIRIN *EC* 81 MG TABLET PO SCH (14:54)
[2018-01-10] MEDS: PredniSONE 20 MG TABLET PO SCH (14:55)
--- NOTE | 2018-01-10 15:55 | Progress Note ---
- Date 01/10/18 Subjective: Ivonne is doing well and she denies any SOA or chest pain. She denies any cough. She denies having pain. She has kyphosis but she doesn't feel like it limits her breathing in any way. She states that her appetite is poor but denies pain or nausea. She sat up in the chair for breakfast this am but other than that hasn't partaken in much activity -- though added she hasn't been very active to begin with. Objective Vital signs: Temperature 98.8 F 01/10/18 08:38 Pulse Rate 73 01/10/18 08:38 Respiratory Rate 18 01/10/18 13:31 Blood Pressure 105/59 01/10/18 08:38 Pulse Oximetry 97 01/10/18 13:31 Rhythm: Premature Atrial Contractions Cardiac Ectopy: Rare PVC's Height/Weight/BMI: Height 1.63 m Weight 71.5 kg Body Mass Index 28.0 - Constitutional Present: no acute distress, well nourished, well developed - Routine HEENT Exam Head: Present: normocephalic Eye: Present: PERRL. Absent: conjunctival icterus, scleral injection ENT: Present: mucous membranes moist - Routine Respiratory Exam Present: decreased breath sounds, diminished air movement - Routine Cardiovascular Exam Present: S1, S2, irregular rhythm - Routine Abdominal Exam Present: soft, normoactive bowel sounds, non distended, non tender - Routine Extremities Exam Present: no edema - Routine Back/Spine/Pelvis Exam Back/Spine: Present: kyphosis - Routine Skin Exam Present: intact, dry, warm - Routine Neurological Exam Present: alert, oriented X3, normal speech - Routine Psychiatric Exam Present: normal affect, normal thought process, cooperative Results - Labs CBC & Chem 7: 01/08/18 10:17 01/10/18 03:55 Microbiology Results: Microbiology 01/06/18 19:24 Peripheral/Iv Start Blood Culture - Preliminary No Growth After 3 Days 01/06/18 19:22 Peripheral/Iv Start Blood Culture - Preliminary No Growth After 3 Days - ABG Interpretation ABG results: 01/07/18 01/08/18 01/10/18 17:01 10:11 04:13 ABG pH 7.447 7.510 H 7.448 ABG pCO2 70 H* 58 H 75 H* ABG pO2 95.9 65.3 L 80.9 ABG HCO3 48.0 H 46.2 H 51.9 H ABG Total CO2 50.1 H 48.0 H 54.3 H ABG O2 Saturation 97.3 93.6 L 95.5 ABG Base Excess 19.6 H 19.4 H 22.7 H Assessment and Plan Assessment and Plan: Assessment CHF exac. Asthma/COPD with exac. acute encephalopathy hyperkalemia, later hypokalemia Hyperlipidemia HTN Anxiety Vit D deficiency OA Allergic rhinitis Constipation Insomnia Oropharyngeal dysphagia GERD OAB Plan ABG this am showed compensated resp acidosis. Pt A&O. cont on vapotherm. CO2 elevated at 46; consider pulmonary consultation. Stop IV diuresis and resume home lasix 40 mg PO daily. Give Diamox 500 mg x1. Weight down 4.5 kg from admit. Renal function is stable. Cont prednisone. Abx converted to keflex. mild hypokalemia - replacement ordered PT/OT -- inpt therapy recommended. CT chest: 1. Patient shows bilateral pleural effusions and partial collapse of both lower lobes although, there is no fluid collection that appears to be clearly in a nondependent position to support significant loculated fluid. 2. Significantly increased kyphosis with degenerative changes and bridging osteophytes at multiple locations. 3. Mild cardiac prominence some of which may be accentuated by the kyphotic curvature. Patient shows a permanent pacemaker in position. DVT Prophylaxis: SCD's GI Prophylaxis: Protonix Resuscitation Status: Do Not Resuscitate - Physician Narrative Narrative: Date: 01/10/18 Time: 1551 Seen and examined patient on same day as the above note. Agree with history, physical, assessment and plan. Comprehensive physical findings correlate to the above note. Exam: Gen.: mild respiratory distress, alert and very pleasant HEENT: normocephalic atraumatic, oral mucosa moderately dry neck: no lymphadenopathy no jugular venous distention respiratory: moderately decreased air entry with much less rhonchi and crackles to auscultation bilaterally with good excursion cardiovascular: cardiovascular S1 S2 no adventitious murmurs rubs or gallops abdomen/GI: soft nondistended with bowel sounds extremities: good peripheral perfusion with no edema skin/integument: no significant injuries or edema neuro: alert and oriented times 3. No focal deficits appreciable psych: mood affect remain quite high despite her overall condition and fatigue Labs: reviewed imaging: chest x-ray showed no significant improvement and so I ordered a CT exam of the chest. This was reviewed with Dr. Walker in radiology. The pleural effusions are much less prominent than I had expected from the plain films. Although there might be some small benefit to bilateral thoracentesis, it does not appear to be the amount of benefit that will change the course of her medical treatment here. For this reason we're placing her on BiPAP and will add diuretics. Assessment and plan: acute respiratory distress with pleural effusions and probable pneumonia the bases. Continue antibiotics. Continue breathing treatments and add BiPAP to the regimen Documented on Dragon speech to text. Efforts to correct speech recognition errors performed, but variation may exist Hospital Course Summary Disclaimer: The visit summary below is not to be considered part of the above Progress Note. Hospital Course: 01/06/18: Admit to CCU Admit, inpt status under the hosp service. Continue diuresis with Lasix 40 mg IV BID, BiPAP, DuoNebs. Echo. Trend trop. ABG in am. Place Young for accurate I/O. Sx & clinical scenario more consistent with CHF vs PNA or COPD exac. - nonetheless cannot r/o; cover w/ azithro/rocephin. -however, sepsis w/u pending -consider IV steroids Head CT pending. NPO until cleared by D/W jeff. Pt's sister is DPOA. DNR status. 01/10/18 ABG this am showed compensated resp acidosis. Pt A&O. cont on vapotherm. CO2 elevated at 46; consider pulmonary consultation. Stop IV diuresis and resume home lasix 40 mg PO daily. Give Diamox 500 mg x1. Weight down 4.5 kg from admit. Renal function is stable. Cont prednisone. Abx converted to keflex. mild hypokalemia - replacement ordered PT/OT -- inpt therapy recommended. CT chest: 1. Patient shows bilateral pleural effusions and partial collapse of both lower lobes although, there is no fluid collection that appears to be clearly in a nondependent position to support significant loculated fluid. 2. Significantly increased kyphosis with degenerative changes and bridging osteophytes at multiple locations. 3. Mild cardiac prominence some of which may be accentuated by the kyphotic curvature. Patient shows a permanent pacemaker in position.
[2018-01-10] MEDS ORDERED: acetaZOLAMIDE SR 500 MG CAPSULE PO ONE (15:59)
[2018-01-10] MEDS: ATORVASTATIN 10 MG TABLET PO SCH (20:49)
[2018-01-10] MEDS: ACETAMINOPHEN 500 MG TABLET PO SCH (20:49)
[2018-01-10] MEDS: CETIRIZINE 10 MG TABLET PO SCH (20:49)
[2018-01-11] MEDS: OMEPRAZOLE 20 MG CAPSULE PO SCH (06:43)
[2018-01-11] MEDS: POLYETHYL GLYCOL 3350 17gm PACKET PO SCH (08:43)
[2018-01-11] MEDS: SPIRONOLACTONE 25 MG TABLET PO SCH (08:43)
[2018-01-11] MEDS: GUAIFENESIN LA 600 MG TABLET PO SCH (08:43)
[2018-01-11] MEDS: ENOXAPARIN 40 MG/0.4 ML INJECTION SQ SCH (08:43)
[2018-01-11] MEDS: AZITHROMYCIN 500 MG TABLET PO SCH (08:43)
[2018-01-11] MEDS: FUROSEMIDE 40 MG TABLET PO SCH (08:43)
[2018-01-11] MEDS: PredniSONE 20 MG TABLET PO SCH (08:43)
[2018-01-11] MEDS: TOLTERODINE 2 MG TABLET PO SCH ×2 (08:44→21:57)
--- NOTE | 2018-01-11 08:56 | Progress Note ---
- Date 01/11/18 Subjective: Ivonne is doing well this morning except for the fact she feels cold. She slept well until she had lab drawn and asked if she needs labs checked tomorrow. She denies SOA or chest pain. She denies abdominal pain or nausea. She ordered breakfast and is waiting on it's arrival. She had a bowel movement last night. Objective Vital signs: Temperature 97.6 F 01/11/18 07:40 Pulse Rate 72 01/11/18 08:00 Respiratory Rate 18 01/11/18 07:40 Blood Pressure 121/61 01/11/18 07:40 Pulse Oximetry 97 01/11/18 07:40 Rhythm: Premature Atrial Contractions Cardiac Ectopy: Rare PVC's Height/Weight/BMI: Height 1.63 m Weight 71.5 kg Body Mass Index 28.0 - Constitutional Present: no acute distress, well nourished, well developed - Routine HEENT Exam Head: Present: normocephalic Eye: Absent: conjunctival icterus, scleral injection - Routine Respiratory Exam Present: decreased breath sounds, diminished air movement - Routine Cardiovascular Exam Present: RRR, S1, S2, murmur - Routine Abdominal Exam Present: soft, normoactive bowel sounds, non distended, non tender - Routine Extremities Exam Present: no edema - Routine Skin Exam Present: intact, dry, warm - Routine Neurological Exam Present: alert, oriented X3, CN II-XII intact, moving all extremities, vision grossly intact, hearing grossly intact, normal speech. Absent: sensory deficit , motor deficit, altered mental status, facial asymmetry - Routine Psychiatric Exam Present: normal affect, normal thought process, cooperative Results - Labs CBC & Chem 7: 01/11/18 04:17 01/12/18 07:44 Microbiology Results: Microbiology 01/06/18 19:24 Peripheral/Iv Start Blood Culture - Preliminary No Growth After 4 Days 01/06/18 19:22 Peripheral/Iv Start Blood Culture - Preliminary No Growth After 4 Days - ABG Interpretation ABG results: 01/10/18 04:13 ABG pH 7.448 ABG pCO2 75 H* ABG pO2 80.9 ABG HCO3 51.9 H ABG Total CO2 54.3 H ABG O2 Saturation 95.5 ABG Base Excess 22.7 H Assessment and Plan Assessment and Plan: Assessment CHF exac. Asthma/COPD with exac. acute encephalopathy hyperkalemia, later hypokalemia Hyperlipidemia HTN Anxiety Vit D deficiency OA Allergic rhinitis Constipation Insomnia Oropharyngeal dysphagia GERD OAB Plan Resume IV diuretics Lasix 40 mg BID -- pleural effusions too small to be tapped. BiPAP HS; PRN during the day. Cont Vapotherm, wean as able. Consult Dr. More. Will leave Young in place since we are continuing IV diuretics. Weight trending down, neg fluid balance. CO2 decreased to 43 after receiving Diamox yesterday. K 3.7. Cont Keflex, azithro. D/W Dr. Michaud. DVT Prophylaxis: Lovenox GI Prophylaxis: Omeprazole Resuscitation Status: Do Not Resuscitate - Physician Narrative Narrative: Date: 01/11/18 Time: 08 Seen and examined patient on same day as the above note by nurse practitioner Cristina Miller. Agree with subjective story, physical, assessment and plan. Comprehensive physical findings correlate to the above note. Exam: Gen.:no apparent distress, alert conversant and jovial. On Vapotherm HEENT: normocephalic atraumatic, oral mucosa moderately dry neck: no lymphadenopathy no jugular venous distention respiratory: diminished with minimal wheezes and moderate rhonchi auscultation bilaterally with good excursion cardiovascular: cardiovascular S1 S2 no adventitious murmurs rubs or gallops abdomen/GI: soft nondistended with bowel sounds extremities: good peripheral perfusion with no edema skin/integument: no significant injuries or edema neuro: alert and oriented. No focal deficits appreciable psych: mood and affect remain appropriate and she is in good spirits Labs: reviewed assessment and plan: acute on chronic respiratory failure. Baseline is 3 L oxygen by nasal cannula at nursing center. Rain significantly above this on 40% FI O2 at 20 L by Vasotherm. Pleural effusions: remain stable and are not very large by CT exam the other day. Patient is down 3 1/2 kg from arrival. De-escalating the Lasix at this time to her home dose. We lost the peripheral line on her anyway and so conversion oral Lasix is tolerable Documented on Dragon speech to text. Efforts to correct speech recognition errors performed, but variation may exist Hospital Course Summary Disclaimer: The visit summary below is not to be considered part of the above Progress Note. Hospital Course: 01/06/18: Admit to CCU Admit, inpt status under the hosp service. Continue diuresis with Lasix 40 mg IV BID, BiPAP, DuoNebs. Echo. Trend trop. ABG in am. Place Young for accurate I/O. Sx & clinical scenario more consistent with CHF vs PNA or COPD exac. - nonetheless cannot r/o; cover w/ azithro/rocephin. -however, sepsis w/u pending -consider IV steroids Head CT pending. NPO until cleared by . D/W jeff. Pt's sister is DPOA. DNR status. 01/07/18 patient remains critically ill. Arterial blood gases interpreted and PCO2 at 4 AM remained at 80. I'm not certain as to why she is retaining quite so much carbon dioxide. Ordered a repeat at 12 hours. Overall respiratory distress appears to be improving slightly but she is nowhere near able to wean off BiPAP this time. Family is asking if there is additional candidate requires performed. At this point without intubation I think that she is nearing maximal medical need assuming that she remains hemodynamically stable: she is on antibiotics respiratory treatment ventilatory support noninvasively and getting diuretics to offload fluids. Patient will remain in the ICU on BiPAP with current treatment. HCO2 retention may yet improve on the current treatment given little more time. Failing this will discuss with pulmonary. Starting patient on Lovenox prophylactic dose 01/08/18 at this time will take the patient out of the ICU. She is weaned off BiPAP now. Will continue antibiotics. And will give supplemental oxygen at high rate of delivery but attempt weaning is down to a baseline of 34 L. Acute encephalopathy appears resolved. COPD and congestive heart failure are still ongoing but will decrease the rate of diuresis at this time. 01/09/18 Improving though still on high-flow o2 (Vapotherm). Repeat BMP to assess CO2. ABG in am. CXR from yesterday personally reviewed - improving edema Repeat trop to ensure downward trend. Minimal elevation noted consistent with type 2 WI from hypoxia/CO2 retention or possibly CHF and potential chronic trop leak. She denies anginal symptoms. Resume home ASA and Lipitor. Negative fluid balance with declining weight. Continue with Lasix 40 mg IV BID; resume home spironolactone (K was down to 3.6 yest - pending today). Repeat CXR tomorrow am and consider transitioning to home dose Lasix 40 mg PO daily. Start oral steroids, Pred 40 mg daily. Cont Rocephin/Nebs/Pulmicort for COPD exac. Minimal wheezing on exam. Increase activity level as tolerated. Consult PT/OT for the morning. Echo report: IMPRESSION 1. Normal LV systolic function with ejection fraction of about 65%. 2. Trace of pericardial effusion with no echocardiographic evidence of tamponade. 3. Concentric left ventricular hypertrophy. 4. Device wires in the right heart. 5. Mitral annulus calcification with mitral sclerosis and trace of mitral regurgitation. 6. Aortic sclerosis with trace of aortic insufficiency. 7. Moderate tricuspid regurgitation with severe pulmonary hypertension with estimated pulmonary artery systolic pressure of 72. 8. Mild pulmonary insufficiency. 01/10/18 ABG this am showed compensated resp acidosis. Pt A&O. cont on vapotherm. CO2 elevated at 46; consider pulmonary consultation. Stop IV diuresis and resume home lasix 40 mg PO daily. Give Diamox 500 mg x1. Weight down 4.5 kg from admit. Renal function is stable. Cont prednisone. Abx converted to keflex. mild hypokalemia - replacement ordered PT/OT -- inpt therapy recommended. CT chest: 1. Patient shows bilateral pleural effusions and partial collapse of both lower lobes although, there is no fluid collection that appears to be clearly in a nondependent position to support significant loculated fluid. 2. Significantly increased kyphosis with degenerative changes and bridging osteophytes at multiple locations. 3. Mild cardiac prominence some of which may be accentuated by the kyphotic curvature. Patient shows a permanent pacemaker in position. imaging: chest x-ray showed no significant improvement and so I ordered a CT exam of the chest. This was reviewed with Dr. Walker in radiology. The pleural effusions are much less prominent than I had expected from the plain films. Although there might be some small benefit to bilateral thoracentesis, it does not appear to be the amount of benefit that will change the course of her medical treatment here. For this reason we're placing her on BiPAP and will add diuretics. Assessment and plan: acute respiratory distress with pleural effusions and probable pneumonia the bases. Continue antibiotics. Continue breathing treatments and add BiPAP to the regimen 01/11/18 Resume IV diuretics Lasix 40 mg BID -- pleural effusions too small to be tapped. BiPAP HS; PRN during the day. Cont Vapotherm, wean as able. Consult Dr. More. Will leave Young in place since we are continuing IV diuretics. Weight trending down, neg fluid balance. CO2 decreased to 43 after receiving Diamox yesterday. K 3.7. Cont Ketawanna pedrozaithro.
[2018-01-11] MEDS: ALBUTEROL/IPRATROPIUM 2.5mg-0.5mg/3ml NEB AEROSOL SCH ×3 (10:01→21:15)
[2018-01-11] MEDS: BUDESONIDE INH.SOLN 0.5mg/2ml NEB AEROSOL SCH ×2 (10:01→21:15)
[2018-01-11] MEDS: FUROSEMIDE 40 MG/4 ML INJECTION IVP SCH ×2 (10:13→21:57)
[2018-01-11] MEDS: ASPIRIN *EC* 81 MG TABLET PO SCH (11:46)
--- NOTE | 2018-01-11 16:56 | Pulmonology Consult Note ---
History of Present Illness Consult date: 01/11/18 Requesting physician: Binh Michaud Reason for consult: hypoxemia Chief complaint: pneumonia History of present illness: HPI: Ivonne Nieves is an 87 year old lady who lives in [facility]. Her sister accompanies her today and is helpful in her history. She was recently seen/treated by [facility] for COPD exacerbation. 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 She developed increased SOA on 01/05/18 without cough. On 01/06/18, a prednisone taper and Lasix were restarted. She's also been on DuoNeb treatments. She was saturating 90-93% on 3L of O2, which is worse than baseline. She's had conversational dyspnea. Per records, she's been isolating herself to her room. She also c/o increased body aches. She denied fatigue/weakness. PO intake has been stable. She's denied fever/chills, dizziness, headache, URI sx. She denies abd pain, n/v/d. No dysuria. She does have some underlying memory problems thus ROS is somewhat limited at baseline. Pt's niece reports that the [facility] called reporting that she's been tired and more SOA, but up until the afternoon on 01/06/18 hadn't wanted to go to the hosp. CXR was pos for CHF, poss PNA. She was started on BiPAP. ProBNP was elevated. Renal function was preserved. She was diuresed with Lasix 40 mg IV x1 and started on cefepime for PNA. She was admitted to inpt status, los expected to exceed 2 overnights. Review of Systems ROS unobtainable: due to mental status Past Medical History Medical History: Medical History (Last Updated 07/07/17 @ 13:04 by Laura Holman Mai) Pacemaker (Chronic) Osteoarthritis involving multiple joints on both sides of body (Chronic) Osteoporosis (Chronic) DEXA 10/16/16. R femur T score -2.5 Thrombocytopenia (Chronic) COPD with hypoxia (Chronic) Venous stasis of lower extremity (Chronic) Localized osteoporosis of spine (Chronic) HTN (hypertension) (Chronic) Multinodular goiter Surgical History: Tonsilectomy. Pacemaker placement secondary to complete heart block. Left total hip replacement. Colonoscopy with polyp removal resulting in bowel perforation. Echo in 2012 showed mild-mod valvular disease with normal EF and normal diastolic parameters. Family History Updates: Father - in his late 40's secondary to [place], CAD and hypertension. Mother - healthy and of old age around the age of 96. Sister - healthy and living in [place]. Brother - alchol abuse. Family History: As Above - Social History Smoking status: Never smoker Substance use type: does not use Alcohol intake frequency: does not drink Housing: [facility] Review of Systems All systems: reviewed and no additional remarkable complaints except as stated PFSH Patient Stated Medical History Hypertension Yes Other Cardiology Yes: heart failure Asthma Yes Chronic Obstructive Pulmonary Yes Disease (COPD) Pneumonia Yes Sleep Apnea No Gastroesophageal Reflux Yes Disease Other GI Yes: constipation Hx Incontinence Yes Other Hematologic Yes: THROMBOCYTOPENIA Osteoarthritis Yes Sepsis Yes Post Menopausal Yes Clinic Medical History (Last Updated 07/07/17 @ 13:04 by Laura Holman Mai) Pacemaker (Chronic Medical) Osteoarthritis involving multiple joints on both sides of body (Chronic Medical) Osteoporosis (Chronic Medical) DEXA 10/16/16. R femur T score -2.5 Thrombocytopenia (Chronic Medical) COPD with hypoxia (Chronic Medical) Venous stasis of lower extremity (Chronic Medical) Localized osteoporosis of spine (Chronic Medical) HTN (hypertension) (Chronic Medical) Multinodular goiter (Chronic Medical) Surgical History: Tonsilectomy. Pacemaker placement secondary to complete heart block. Left total hip replacement. Colonoscopy with polyp removal resulting in bowel perforation. Echo in 2012 showed mild-mod valvular disease with normal EF and normal diastolic parameters. Family History Updates: Father - in his late 40's secondary to [place], CAD and hypertension. Mother - healthy and of old age around the age of 96. Sister - healthy and living in [place]. Brother - alchol abuse. - Social History Smoking status: Never smoker Substance use type: does not use Alcohol intake frequency: does not drink Housing: [facility] residence[facility] Medications Home Medications Medication Instructions Recorded Confirmed Type Acetaminophen [Acetaminophen Extra 1,000 mg PO HS #0 tab 07/01/15 01/06/18 History Strength] Cetirizine HCl [Zyrtec] 10 mg PO HS #0 07/01/15 01/06/18 History Cholecalciferol (Vitamin D3) 2,000 mg PO DAILY #0 07/01/15 01/06/18 History [Vitamin D3] Lutein 20 mg PO DAILY #0 07/01/15 01/06/18 History Omeprazole 40 mg PO ACB #0 07/01/15 01/06/18 History Furosemide [Lasix 40 mg Tab] 40 mg PO DAILY 07/09/17 01/06/18 History PEG 3350 17gm PACKET [Miralax] 17 gm PO DAILY 07/09/17 01/06/18 History Spironolactone [Aldactone] 25 mg PO DAILY 07/09/17 01/06/18 History Mag Hydrox/Aluminum Hyd/Simeth 30 ml PO Q4H PRN 07/21/17 01/06/18 History [Alum-Mag Hydroxide-Simeth Liq] Magnesium Hydroxide [Milk of 15 - 30 ml PO DAILY PRN 07/21/17 01/06/18 History Magnesia] Simethicone 125 mg PO HS 07/21/17 01/06/18 History Acetaminophen [Tylenol] 500 - 1,000 mg PO BID PRN 01/06/18 01/06/18 History Albuterol/Ipratropium [Duoneb] 1 unit AEROSOL TID 01/06/18 01/06/18 History Arctic Mary [place] Oil 1,000 mg PO DAILY 01/06/18 01/06/18 History Aspirin [Adult Aspirin] 81 mg PO NOON 01/06/18 01/06/18 History Atorvastatin [Lipitor] 10 mg PO HS 01/06/18 01/06/18 History Budesonide 0.5 mg IH BID 01/06/18 01/06/18 History Calcium Carb/Vitamin D3/Vit K1 1 tab PO BID 01/06/18 01/06/18 History [Viactiv Soft Chew Tablet] Dextromethorphan HBr/B-Jhonny 1 lozenge PO PRN PRN 01/06/18 01/06/18 History [Cepacol Sorethroat-Cough Angela] Guaifenesin/Dextromethorphan 10 ml PO Q6H PRN 01/06/18 01/06/18 History [Guaifenesin Dm Syrup] Guaifenesin/Dextromethorphan 10 ml PO HS 01/06/18 01/06/18 History [Robitussin Cough-Chest Dm Liq] Multivitamin [One Daily 1 tab PO NOON 01/06/18 01/06/18 History Multivitamin] Ondansetron Tab [Zofran Po] 4 mg PO Q8H PRN 01/06/18 01/06/18 History Peg 3350 238 G Bottle [Miralax] 17 gm PO DAILY PRN 01/06/18 01/06/18 History Tolterodine Tartrate [Detrol] 1 mg PO BID 01/06/18 01/06/18 History guaiFENesin [Mucinex] 1,200 mg PO DAILY 01/06/18 01/06/18 History Ativan (lorazepam) 0.5 mg tablet 0.5 mg PO HS PRN #30 tab 01/07/18 Rx Allergies Allergy/AdvReac Type Severity Reaction Status Date / Time No Known Allergies Allergy Verified 01/06/18 16:32 Exam Vital signs: Temperature 96.8 F 01/11/18 16:09 Pulse Rate 65 01/11/18 16:09 Respiratory Rate 18 01/11/18 16:09 Blood Pressure 112/69 01/11/18 16:09 Pulse Oximetry 96 01/11/18 16:09 - Constitutional no acute distress Comments: awake and cooperative - Routine HEENT Exam Head: Present: normocephalic, atraumatic - Routine Neck Exam Present: supple, full ROM - Routine Respiratory Exam Present: decreased breath sounds. Absent: accessory muscle use, wheezes - Routine Cardiovascular Exam Present: RRR - Routine Abdominal Exam Present: soft. Absent: guarding - Routine Extremities Exam Absent: cyanosis, clubbing - Routine Skin Exam Absent: rash - Routine Neurological Exam Present: alert. Absent: motor deficit - Routine Psychiatric Exam Present: cooperative Results - Laboratory Findings CBC and BMP: 01/11/18 04:17 01/11/18 04:17 ABG ABG pH 7.448 (7.350-7.450) 01/10/18 04:13 ABG pCO2 75 MMHG (34.0-45.0) H* 01/10/18 04:13 ABG pO2 80.9 MMHG (80.0-100.0) 01/10/18 04:13 ABG O2 Saturation 95.5 % (95.0-98.0) 01/10/18 04:13 Abnormal lab findings: Abnormal Labs 01/06/18 01/06/18 01/06/18 16:23 16:23 19:23 Hct 47.9 H MCV 103.5 H MCHC 29.0 L RDW Std Deviation 53.5 H Immature Gran % (Auto) 1.2 H Neut % (Auto) 82.0 H Lymph % (Auto) 10.3 L Piatt % (Auto) Neut # (Auto) 8.7 H Lymph # (Auto) Abs Immat Gran (auto) 0.13 H ABG pH ABG pCO2 ABG pO2 ABG HCO3 ABG Total CO2 ABG O2 Saturation ABG Base Excess Potassium 5.1 H Chloride 92 L Carbon Dioxide 38 H BUN 22.0 H Creatinine 0.5 L BUN/Creatinine Ratio 44 H Glucose 178 H Calcium Troponin I NT-Pro-B Natriuret Pep 2760 H Plasma Lactate 2.3 H Ur Specific [place] 01/06/18 01/06/18 01/07/18 20:21 22:09 04:04 Hct MCV MCHC RDW Std Deviation Immature Gran % (Auto) Neut % (Auto) Lymph % (Auto) Piatt % (Auto) Neut # (Auto) Lymph # (Auto) Abs Immat Gran (auto) ABG pH ABG pCO2 80 H* ABG pO2 66.2 L ABG HCO3 50.0 H ABG Total CO2 52.5 H ABG O2 Saturation 91.2 L ABG Base Excess 20.3 H Potassium Chloride Carbon Dioxide BUN Creatinine BUN/Creatinine Ratio Glucose Calcium Troponin I NT-Pro-B Natriuret Pep Plasma Lactate 2.6 H Ur Specific [place] 1.010 L 01/07/18 01/07/18 01/07/18 05:26 05:26 12:05 Hct MCV 100.7 H MCHC 29.6 L RDW Std Deviation 51.4 H Immature Gran % (Auto) Neut % (Auto) 77.4 H Lymph % (Auto) 12.1 L Piatt % (Auto) 10.2 H Neut # (Auto) Lymph # (Auto) 0.8 L Abs Immat Gran (auto) ABG pH ABG pCO2 ABG pO2 ABG HCO3 ABG Total CO2 ABG O2 Saturation ABG Base Excess Potassium Chloride 86 L D Carbon Dioxide 47 H* BUN 25.0 H Creatinine BUN/Creatinine Ratio 36 H Glucose Calcium Troponin I 0.154 H D 0.129 H NT-Pro-B Natriuret Pep Plasma Lactate Ur Specific [place] 01/07/18 01/08/18 01/08/18 17:01 10:11 10:17 Hct MCV MCHC 30.5 L RDW Std Deviation 52.0 H Immature Gran % (Auto) Neut % (Auto) 75.5 H Lymph % (Auto) 12.7 L Piatt % (Auto) Neut # (Auto) Lymph # (Auto) Abs Immat Gran (auto) ABG pH 7.510 H ABG pCO2 70 H* 58 H ABG pO2 65.3 L ABG HCO3 48.0 H 46.2 H ABG Total CO2 50.1 H 48.0 H ABG O2 Saturation 93.6 L ABG Base Excess 19.6 H 19.4 H Potassium Chloride Carbon Dioxide BUN Creatinine BUN/Creatinine Ratio Glucose Calcium Troponin I NT-Pro-B Natriuret Pep Plasma Lactate Ur Specific [place] 01/08/18 01/09/18 01/10/18 10:17 12:24 03:55 Hct MCV MCHC RDW Std Deviation Immature Gran % (Auto) Neut % (Auto) Lymph % (Auto) Piatt % (Auto) Neut # (Auto) Lymph # (Auto) Abs Immat Gran (auto) ABG pH ABG pCO2 ABG pO2 ABG HCO3 ABG Total CO2 ABG O2 Saturation ABG Base Excess Potassium 3.5 L 3.4 L Chloride 85 L 86 L 89 L Carbon Dioxide 46 H* 47 H* 46 H* BUN 28.0 H 26.0 H 28.0 H Creatinine 0.6 L BUN/Creatinine Ratio 47 H 37 H 40 H Glucose 113 H 117 H Calcium 8.0 L Troponin I NT-Pro-B Natriuret Pep Plasma Lactate Ur Specific [place] 01/10/18 01/11/18 01/11/18 04:13 04:17 04:17 Hct MCV 100.2 H MCHC 30.3 L RDW Std Deviation 50.9 H Immature Gran % (Auto) Neut % (Auto) 81.0 H Lymph % (Auto) 13.1 L Piatt % (Auto) Neut # (Auto) Lymph # (Auto) 0.8 L Abs Immat Gran (auto) ABG pH ABG pCO2 75 H* ABG pO2 ABG HCO3 51.9 H ABG Total CO2 54.3 H ABG O2 Saturation ABG Base Excess 22.7 H Potassium Chloride 89 L Carbon Dioxide 43 H* BUN 24.0 H Creatinine BUN/Creatinine Ratio 30 H Glucose 126 H Calcium Troponin I NT-Pro-B Natriuret Pep Plasma Lactate Ur Specific [place] - Diagnostic Findings Chest x-ray: report reviewed, image reviewed CT scan - chest: report reviewed, image reviewed Assessment and Plan (1) Acute on chronic respiratory failure with hypoxemia Status: Acute Assessment and plan: likely due to severe kyphosis of the C/T spine with restrictive lung disease, atelectasis, possible aspiration pneumonia continue Vapotherm and wean as tolerated. Add EZpap to neb treatments Current Visit: Yes (2) Atelectasis Status: Acute Assessment and plan: bilateral dependent atelectasis. possible aspiration pneumonia. Current Visit: Yes (3) Dysphagia Status: Acute Assessment and plan: she is tolerating a soft diet. recommend speech eval of her swallow Current Visit: Yes - Time Spent With Patient Total time spent is greater than 50% in coordination of care (as documented) at patient's floor/unit and/or counseling patient: 25 - 35 minutes
[2018-01-11] MEDS: ACETAMINOPHEN 500 MG TABLET PO SCH (21:57)
[2018-01-11] MEDS: CETIRIZINE 10 MG TABLET PO SCH (21:57)
[2018-01-11] MEDS: ATORVASTATIN 10 MG TABLET PO SCH (21:57)
[2018-01-12] MEDS: ACETAMINOPHEN 325 MG TABLET PO PRN (06:15)
[2018-01-12] MEDS: OMEPRAZOLE 20 MG CAPSULE PO SCH (06:16)
[2018-01-12] MEDS: FUROSEMIDE 40 MG TABLET PO SCH (08:28)
[2018-01-12] MEDS: GUAIFENESIN LA 600 MG TABLET PO SCH (08:30)
[2018-01-12] MEDS: AZITHROMYCIN 500 MG TABLET PO SCH (08:30)
[2018-01-12] MEDS: TOLTERODINE 2 MG TABLET PO SCH ×2 (08:30→21:41)
[2018-01-12] MEDS: PredniSONE 20 MG TABLET PO SCH (08:31)
[2018-01-12] MEDS: POLYETHYL GLYCOL 3350 17gm PACKET PO SCH (08:31)
[2018-01-12] MEDS: SPIRONOLACTONE 25 MG TABLET PO SCH (08:31)
[2018-01-12] MEDS: ENOXAPARIN 40 MG/0.4 ML INJECTION SQ SCH (08:31)
[2018-01-12] MEDS: ALBUTEROL/IPRATROPIUM 2.5mg-0.5mg/3ml NEB AEROSOL SCH ×3 (10:45→20:33)
[2018-01-12] MEDS: BUDESONIDE INH.SOLN 0.5mg/2ml NEB AEROSOL SCH ×2 (10:45→20:33)
[2018-01-12] MEDS: ASPIRIN *EC* 81 MG TABLET PO SCH (13:11)
--- NOTE | 2018-01-12 15:55 | Progress Note ---
- Date 01/12/18 Subjective: Ivonne is seen today while sitting in her recliner, visiting with her sister. She reports that she is feeling better today and denies any concerns or complaints. She feels like her breathing is improving. No fevers, chills, chest pain, shortness of breath, abdominal pain, nausea, vomiting or dysuria. Her appetite is stable. She continues on Vapotherm and is tolerating it well. She was seen and evaluated by Dr. More yesterday who recommended continuation of Vapotherm and weaning as able as well as adding EZpap to the nebulized treatments. Labs today revealed hypokalemia (K 3.5). Objective Vital signs: Temperature 98.5 F 01/12/18 08:00 Pulse Rate 67 01/12/18 08:00 Respiratory Rate 24 01/12/18 10:46 Blood Pressure 127/66 01/12/18 08:00 Pulse Oximetry 93 01/12/18 10:46 Rhythm: Premature Atrial Contractions Cardiac Ectopy: Rare PVC's Height/Weight/BMI: Height 5 ft 4 in Weight 157 lb 6.561 oz Body Mass Index 28.0 Comments: sitting up in recliner, visiting with sisterRoseanne. - Constitutional Present: no acute distress, well nourished, well developed, cooperative - Routine HEENT Exam Head: Present: normocephalic, atraumatic Eye: Present: PERRL. Absent: conjunctival icterus ENT: Present: mucous membranes moist, oropharynx clear - Routine Respiratory Exam Present: decreased breath sounds. Absent: respiratory distress, wheezes Comments: Breathing easily on vapotherm; no cough or conversational dyspnea. - Routine Cardiovascular Exam Present: S1, S2 - Routine Abdominal Exam Present: soft, normoactive bowel sounds, non tender - Routine Extremities Exam Present: edema, pulses intact - Routine Back/Spine/Pelvis Exam Back/Spine: Present: full ROM, kyphosis - Routine Musculoskeletal Exam Musculoskeletal: Present: no clubbing or cyanosis, moving extremities well - Routine Skin Exam Present: dry, warm Comments: Afebrile. - Routine Neurological Exam Present: alert, moving all extremities, hearing grossly intact, normal speech - Routine Psychiatric Exam Present: cooperative Results - Labs CBC & Chem 7: 01/11/18 04:17 01/12/18 07:44 Microbiology Results: Microbiology 01/06/18 19:24 Peripheral/Iv Start Blood Culture - Final No Growth After 5 Days 01/06/18 19:22 Peripheral/Iv Start Blood Culture - Final No Growth After 5 Days Assessment and Plan (1) Acute on chronic respiratory failure with hypoxemia Current visit: Yes Status: Acute Assessment and Plan: Assessment Acute/chronic hypoxic respiratory failure Acute CHF exac.-EF 65%, concentric LVH Asthma/COPD with exac. 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 Family expresses concern about the care she received in care home prior to admission and would like to evaluate possible discharge to [facility]. Case management working on discharge plan. Hypokalemia noted today (K 3.5). Will give KCl 20 mEq po x 1 dose at dinner and recheck in AM. Lasix 40mg po daily was restarted on 01/11/18. Patient on spironolactone daily so no additional potassium ordered daily. Monitor closely. Continue BiPAP HS and PRN during the day. Continue Vapotherm, weaning as able. Patient seen and evaluated by Dr. More on 01/11/18 who recommended adding EZpap to nebulized treatments and continuing vapotherm, weaning as able. Appreciate his time and expertise. Weight stable. Continue to monitor closely. CO2 continues to trend down (41 today). Diamox given 01/10/18. Continue to monitor closely. Cont Keflex and azithromycin for treatment of suspected pulmonary pathogens - day 3. Recheck labs in AM to monitor blood counts, electrolytes and renal function. DVT Prophylaxis: Lovenox GI Prophylaxis: Omeprazole Resuscitation Status: Do Not Resuscitate - Time spent with patient Time with patient PN: 35 minutes Coordination of Care: >50% of visit spent providing counseling/coordination of care - Physician Narrative Physician: Sosa Zarco MD Narrative: Date: 01/12/18 Time: 2014 I have independently evaluated and examined this patient. I reviewed the chart, the patient's history, and the [employer]INE[employer]/PA's documented findings as above. We discussed and formulated the assessment and plan as above with additions as below: Mrs. Nieves was seen with her sister at bedside. The patient reports that she is breathing comfortably with Vapotherm and is using BiPAP part of the night. She denies sputum production or cough and has had no chest pain or palpitations. Moderately kyphotic female, NAD Respirations nonlabored with good airflow, breath sounds clear. Chest CT from 01/10 reviewed by myself demonstrating kyphosis, bilateral pleural effusions with bibasilar atelectasis. Pacemaker present. Comparable findings on chest x-ray at the same date-left pleural effusion> right. Continue supportive care; will discuss further with Dr. More tomorrow to determine if thoracentesis should be considered given other limitations in lung function patient has (restrictive lung disease, asthma, pulmonary hypertension) Hospital Course Summary Disclaimer: The visit summary below is not to be considered part of the above Progress Note. Hospital Course: 01/06/18: Admit to CCU Admit, inpt status under the hosp service. Continue diuresis with Lasix 40 mg IV BID, BiPAP, DuoNebs. Echo. Trend trop. ABG in am. Place Young for accurate I/O. Sx & clinical scenario more consistent with CHF vs PNA or COPD exac. - nonetheless cannot r/o; cover w/ azithro/rocephin. -however, sepsis w/u pending -consider IV steroids Head CT pending. NPO until cleared by ST. Terry/W jeff. Pt's sister is DPOA. DNR status. 01/07/18 patient remains critically ill. Arterial blood gases interpreted and PCO2 at 4 AM remained at 80. I'm not certain as to why she is retaining quite so much carbon dioxide. Ordered a repeat at 12 hours. Overall respiratory distress appears to be improving slightly but she is nowhere near able to wean off BiPAP this time. Family is asking if there is additional candidate requires performed. At this point without intubation I think that she is nearing maximal medical need assuming that she remains hemodynamically stable: she is on antibiotics respiratory treatment ventilatory support noninvasively and getting diuretics to offload fluids. Patient will remain in the ICU on BiPAP with current treatment. HCO2 retention may yet improve on the current treatment given little more time. Failing this will discuss with pulmonary. Starting patient on Lovenox prophylactic dose 01/08/18 at this time will take the patient out of the ICU. She is weaned off BiPAP now. Will continue antibiotics. And will give supplemental oxygen at high rate of delivery but attempt weaning is down to a baseline of 34 L. Acute encephalopathy appears resolved. COPD and congestive heart failure are still ongoing but will decrease the rate of diuresis at this time. 01/09/18 Improving though still on high-flow o2 (Vapotherm). Repeat BMP to assess CO2. ABG in am. CXR from yesterday personally reviewed - improving edema Repeat trop to ensure downward trend. Minimal elevation noted consistent with type 2 DE from hypoxia/CO2 retention or possibly CHF and potential chronic trop leak. She denies anginal symptoms. Resume home ASA and Lipitor. Negative fluid balance with declining weight. Continue with Lasix 40 mg IV BID; resume home spironolactone (K was down to 3.6 yest - pending today). Repeat CXR tomorrow am and consider transitioning to home dose Lasix 40 mg PO daily. Start oral steroids, Pred 40 mg daily. Cont Rocephin/Nebs/Pulmicort for COPD exac. Minimal wheezing on exam. Increase activity level as tolerated. Consult PT/OT for the morning. Echo report: IMPRESSION 1. Normal LV systolic function with ejection fraction of about 65%. 2. Trace of pericardial effusion with no echocardiographic evidence of tamponade. 3. Concentric left ventricular hypertrophy. 4. Device wires in the right heart. 5. Mitral annulus calcification with mitral sclerosis and trace of mitral regurgitation. 6. Aortic sclerosis with trace of aortic insufficiency. 7. Moderate tricuspid regurgitation with severe pulmonary hypertension with estimated pulmonary artery systolic pressure of 72. 8. Mild pulmonary insufficiency. 01/10/18 ABG this am showed compensated resp acidosis. Pt A&O. cont on vapotherm. CO2 elevated at 46; consider pulmonary consultation. Stop IV diuresis and resume home lasix 40 mg PO daily. Give Diamox 500 mg x1. Weight down 4.5 kg from admit. Renal function is stable. Cont prednisone. Abx converted to keflex. mild hypokalemia - replacement ordered PT/OT -- inpt therapy recommended. CT chest: 1. Patient shows bilateral pleural effusions and partial collapse of both lower lobes although, there is no fluid collection that appears to be clearly in a nondependent position to support significant loculated fluid. 2. Significantly increased kyphosis with degenerative changes and bridging osteophytes at multiple locations. 3. Mild cardiac prominence some of which may be accentuated by the kyphotic curvature. Patient shows a permanent pacemaker in position. imaging: chest x-ray showed no significant improvement and so I ordered a CT exam of the chest. This was reviewed with Dr. Walker in radiology. The pleural effusions are much less prominent than I had expected from the plain films. Although there might be some small benefit to bilateral thoracentesis, it does not appear to be the amount of benefit that will change the course of her medical treatment here. For this reason we're placing her on BiPAP and will add diuretics. Assessment and plan: acute respiratory distress with pleural effusions and probable pneumonia the bases. Continue antibiotics. Continue breathing treatments and add BiPAP to the regimen 01/11/18 Resume IV diuretics Lasix 40 mg BID -- pleural effusions too small to be tapped. BiPAP HS; PRN during the day. Cont Vapotherm, wean as able. Consult Dr. More. Will leave Young in place since we are continuing IV diuretics. Weight trending down, neg fluid balance. CO2 decreased to 43 after receiving Diamox yesterday. K 3.7. Cont Keflex, azithro. 01/12/18 Patient reports that she is feeling better. Family expresses concern about the care she received in care home prior to admission and would like to evaluate possible discharge to [facility]. Case management working on discharge plan. Hypokalemia noted today (K 3.5). Will give KCl 20 mEq po x 1 dose at dinner and recheck in AM. Lasix 40mg po daily was restarted on 01/11/18. Patient on spironolactone daily so no additional potassium ordered daily. Monitor closely. Continue BiPAP HS and PRN during the day. Continue Vapotherm, weaning as able. Patient seen and evaluated by Dr. More on 01/11/18 who recommended adding EZpap to nebulized treatments and continuing vapotherm, weaning as able. Appreciate his time and expertise. Weight stable. Continue to monitor closely. CO2 continues to trend down (41 today). Diamox given 01/10/18. Continue to monitor closely. Cont Keflex and azithromycin for treatment of suspected pulmonary pathogens - day 3. Recheck labs in AM to monitor blood counts, electrolytes and renal function.
[2018-01-12] MEDS ORDERED: FALL RISK - PHARMACY CONSULT MC ONE (19:32)
[2018-01-12] MEDS: CETIRIZINE 10 MG TABLET PO SCH (21:39)
[2018-01-12] MEDS: ATORVASTATIN 10 MG TABLET PO SCH (21:40)
[2018-01-12] MEDS: ACETAMINOPHEN 500 MG TABLET PO SCH (21:40)
[2018-01-13] MEDS: OMEPRAZOLE 20 MG CAPSULE PO SCH (06:36)
[2018-01-13] MEDS: BUDESONIDE INH.SOLN 0.5mg/2ml NEB AEROSOL SCH ×2 (07:18→19:36)
[2018-01-13] MEDS: ALBUTEROL/IPRATROPIUM 2.5mg-0.5mg/3ml NEB AEROSOL SCH ×2 (07:18→19:36)
[2018-01-13] MEDS: ENOXAPARIN 40 MG/0.4 ML INJECTION SQ SCH (08:53)
[2018-01-13] MEDS: POLYETHYL GLYCOL 3350 17gm PACKET PO SCH (08:53)
[2018-01-13] MEDS: GUAIFENESIN LA 600 MG TABLET PO SCH (08:53)
[2018-01-13] MEDS: TOLTERODINE 2 MG TABLET PO SCH ×2 (08:54→21:07)
[2018-01-13] MEDS: SPIRONOLACTONE 25 MG TABLET PO SCH (08:54)
[2018-01-13] MEDS: AZITHROMYCIN 500 MG TABLET PO SCH (08:54)
[2018-01-13] MEDS: PredniSONE 20 MG TABLET PO SCH (08:54)
[2018-01-13] MEDS: FUROSEMIDE 40 MG TABLET PO SCH (08:54)
[2018-01-13] MEDS: ASPIRIN *EC* 81 MG TABLET PO SCH (12:43)
[2018-01-13] MEDS ORDERED: SENNOSIDES 8.6 MG TABLET PO PRN (16:44)
--- NOTE | 2018-01-13 18:29 | Pulmonology Progress Note ---
Subjective Principal diagnosis: pneumonia Interval history: eating well. on 3 lpm nc and tolerating well. denies dysphagia. using Acapella device. Exam Vital signs: Temperature 98 F 01/13/18 07:52 Pulse Rate 85 01/13/18 07:52 Respiratory Rate 22 01/13/18 11:48 Blood Pressure 119/59 01/13/18 07:52 Pulse Oximetry 92 01/13/18 12:44 Inpatient Medications: Generic Name Dose Route Start Last Admin Trade Name Freq PRN Reason Stop Dose Admin Acetaminophen 325 - 650 mg 01/06/18 20:13 Tylenol PA Q5H PRN Pain Acetaminophen 325 - 650 mg 01/08/18 23:50 01/12/18 06:15 Tylenol PO 650 mg Q5H PRN Administration Discomfort Acetaminophen 500 - 1,000 mg 01/09/18 12:02 Tylenol PO BID PRN Pain Acetaminophen 1,000 mg 01/09/18 21:00 01/12/18 21:40 Tylenol PO 1,000 mg HS BANDAR Administration Albuterol/Ipratropium 3 ml 01/07/18 07:00 01/13/18 07:18 Duoneb AEROSOL 3 ml RTTID BANDAR Administration Aspirin 81 mg 01/09/18 12:00 01/13/18 12:43 Ecotrin PO 81 mg NOON BANDAR Administration Atorvastatin Calcium 10 mg 01/09/18 21:00 01/12/18 21:40 Lipitor PO 10 mg HS BANDAR Administration Azithromycin 500 mg 01/10/18 09:00 01/13/18 08:54 Zithromax PO 01/14/18 23:59 500 mg DAILY BANDAR Administration Budesonide 0.5 mg 01/07/18 07:00 01/13/18 07:18 Pulmicort Inhalation AEROSOL 0.5 mg RTBID BANDAR Administration Cephalexin HCl 500 mg 01/09/18 21:00 01/13/18 08:54 Keflex 500 Mg PO 01/17/18 23:59 500 mg Q12HR BANDAR Administration Cetirizine HCl 10 mg 01/09/18 21:00 01/12/18 21:39 Zyrtec PO 10 mg HS BANDAR Administration Enoxaparin Sodium 40 mg 01/07/18 16:30 01/13/18 08:53 Lovenox SQ 40 mg DAILY BANDAR Administration Furosemide 40 mg 01/10/18 09:00 01/13/18 08:54 Lasix 40 Mg Tab PO 40 mg DAILY BANDAR Administration Guaifenesin 1,200 mg 01/10/18 09:00 01/13/18 08:53 Mucinex La PO 1,200 mg DAILY BANDAR Administration Lorazepam 0.5 mg 01/09/18 18:58 Ativan PO HS PRN anxiety Omeprazole 40 mg 01/10/18 06:30 01/13/18 06:36 Prilosec PO 40 mg ACB BANDAR Administration Ondansetron HCl 4 mg 01/06/18 20:13 Zofran IVP Q6H PRN Nausea &/or vomiting Polyethylene Glycol 17 gm 01/10/18 09:00 01/13/18 08:53 Miralax PO 17 gm DAILY BANDAR Administration Prednisone 40 mg 01/10/18 11:56 01/13/18 08:54 Deltasone 20 Mg PO 40 mg WB BANDAR Administration Senna 17.2 mg 01/13/18 16:44 01/13/18 17:03 Senna Lax PO 17.2 mg BID PRN Administration Constipation Simethicone 125 mg 01/09/18 12:02 Phazyme PO HS PRN Sodium Chloride 10 - 80 ml 01/06/18 16:25 01/07/18 08:54 Iv Flush IVF 30 ml PRN PRN Administration Flushing Sodium Chloride 500 ml 01/08/18 14:26 01/08/18 22:38 Normal Saline IV 500 ml PRN PRN Administration Spironolactone 25 mg 01/10/18 09:00 01/13/18 08:54 Aldactone 25 Mg PO 25 mg DAILY BANDAR Administration Tolterodine Tartrate 1 mg 01/09/18 21:00 01/13/18 08:54 Detrol PO 1 mg BID BANDAR Administration Discontinued Medications Generic Name Dose Route Start Last Admin Trade Name Freq PRN Reason Stop Dose Admin Acetazolamide 500 mg 01/10/18 15:59 01/10/18 18:52 Diamox 500 Mg Sequels PO 01/10/18 16:00 500 mg O ONE Administration Furosemide 40 mg 01/06/18 18:00 Lasix 40 Mg/4 Ml IVP 01/06/18 18:01 O ONE Furosemide 40 mg 01/06/18 21:00 01/10/18 10:17 Lasix 40 Mg/4 Ml IVP 40 mg Q12HR BANDAR Administration Furosemide 40 mg 01/11/18 09:00 01/11/18 21:57 Lasix 40 Mg/4 Ml IVP 40 mg Q12HR BANDAR Administration Cefepime HCl 1 gm/ Sodium 100 mls @ 200 mls/hr 01/06/18 18:00 01/06/18 19:55 Chloride IV 01/06/18 18:29 Infused O ONE Infusion Ceftriaxone Sodium 1 g/ Sodium 100 mls @ 200 mls/hr 01/06/18 20:13 01/08/18 23:20 Chloride IV Infused Q24H BANDAR Infusion Azithromycin 500 mg/ Sodium 250 mls @ 167 mls/hr 01/06/18 20:13 01/09/18 01: 15 Chloride IV Infused O BANDAR Infusion Pantoprazole Sodium 40 mg 01/07/18 09:00 01/09/18 09:41 Protonix Iv IVP 40 mg DAILY BANDAR Administration Pharmacy Consult 1 each 01/12/18 19:32 Pharmacy Consult - Fall Risk 01/12/18 19:33 ONE TIME ONE Potassium Chloride 20 meq 01/10/18 16:01 01/10/18 18:52 K-Dur 20 Meq Tablet PO 01/10/18 16:02 20 meq O ONE Administration Potassium Chloride 20 meq 01/12/18 17:30 01/12/18 17:34 K-Dur 20 Meq Tablet PO 01/12/18 17:31 20 meq O ONE Administration - Constitutional no acute distress - Routine HEENT Exam Head: Present: normocephalic, atraumatic - Routine Neck Exam Comments: severe kyphosis - Routine Respiratory Exam Present: decreased breath sounds - Routine Cardiovascular Exam Present: RRR - Urinary Catheter Management Urethral Cath placed during this visit: yes Insertion date: 01/06/18 Insertion time: 20:00 Results - Laboratory Findings Laboratory: Laboratory Results - last 48 hr 01/12/18 01/13/18 01/13/18 07:44 04:22 04:22 WBC 6.1 RBC 3.84 L Hgb 11.6 L Hct 37.9 MCV 98.7 MCH 30.2 MCHC 30.6 L RDW Std Deviation 49.8 Plt Count 173 MPV 10.3 Immature Gran % (Auto) 0.5 Neut % (Auto) 70.4 H Lymph % (Auto) 17.7 L Sawyer % (Auto) 10.2 H Eos % (Auto) 1.0 Baso % (Auto) 0.2 Neut # (Auto) 4.3 Lymph # (Auto) 1.1 Sawyer # (Auto) 0.6 Eos # (Auto) 0.1 Baso # (Auto) 0.0 Abs Immat Gran (auto) 0.03 Turbidity < 20 < 20 Sodium 139 137 Potassium 3.5 L 4.0 Chloride 92 L 91 L Carbon Dioxide 41 H* 40 H Anion Gap 6 6 BUN 29.0 H 30.0 H Creatinine 0.9 0.8 GFR Calculation 59 68 BUN/Creatinine Ratio 32 H 38 H Glucose 98 100 Calculated Osmolality 274 270 Calcium 9.0 8.9 Icterus Index < 2 < 2 Specimen Hemolysis < 15 < 15 Assessment and Plan (1) Acute on chronic respiratory failure with hypoxemia Status: Acute Assessment and plan: Much improved, likely back to baseline. likely due to severe kyphosis of the C/ T spine with restrictive lung disease, atelectasis, possible aspiration pneumonia Current Visit: Yes (2) Atelectasis Status: Acute Assessment and plan: bilateral dependent atelectasis. possible aspiration pneumonia. she is improved. she should continue IS and Acapella. Current Visit: Yes (3) Dysphagia Status: Acute Assessment and plan: doing well on modified diet Current Visit: Yes - Time Spent With Patient Total time spent is greater than 50% in coordination of care (as documented) at patient's floor/unit and/or counseling patient: less than 15 minutes
[2018-01-13] MEDS: CETIRIZINE 10 MG TABLET PO SCH (21:07)
--- NOTE | 2018-01-13 21:07 | Progress Note ---
- Date 01/13/18 Subjective: Patient seen sitting in her chair this evening. She reports she is feeling better. She reports she is eating well. No chest pain. No longer on the Vapotherm, just nasal cannula oxygen. Objective Vital signs: Temperature 96.0 F L 01/13/18 20:00 Pulse Rate 89 01/13/18 20:00 Respiratory Rate 19 01/13/18 20:00 Blood Pressure 113/52 01/13/18 20:00 Pulse Oximetry 95 01/13/18 20:00 Rhythm: Premature Atrial Contractions Cardiac Ectopy: Rare PVC's Height/Weight/BMI: Height 1.63 m Weight 73 kg Body Mass Index 28.0 - Constitutional Present: no acute distress, well nourished, well developed - Routine HEENT Exam Head: Present: normocephalic, atraumatic - Routine Respiratory Exam Present: decreased breath sounds (bilateral bases ), wheezes (bilateral upper lung kim) - Routine Cardiovascular Exam Present: RRR, no murmur - Routine Abdominal Exam Present: soft, non distended, non tender - Routine Extremities Exam Present: no edema, normal capillary refill - Routine Skin Exam Present: dry, warm - Routine Neurological Exam Present: alert, moving all extremities, normal speech - Routine Lymphatic Exam Lymphatic: Absent: adenopathy - Routine Psychiatric Exam Present: normal affect, cooperative Results - Labs CBC & Chem 7: 01/13/18 04:22 01/13/18 04:22 Microbiology Results: Microbiology 01/06/18 19:24 Peripheral/Iv Start Blood Culture - Final No Growth After 5 Days 01/06/18 19:22 Peripheral/Iv Start Blood Culture - Final No Growth After 5 Days Assessment and Plan (1) Acute on chronic respiratory failure with hypoxemia Current visit: Yes Status: Acute Assessment and Plan: Assessment Acute/chronic hypoxic respiratory failure Acute CHF exac.-EF 65%, concentric LVH Asthma/COPD with exac. 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 Able to wean off Vapotherm and on to oxygen per nasal cannula. Currently on 3 L. Cont Keflex and azithromycin for treatment of suspected pulmonary pathogens - day 4. Continue DuoNeb and budesonide treatments and Acapella. Recheck labs in AM to monitor blood counts, electrolytes and renal function. Decrease in hemoglobin from 13.9 on admission to 11.6 today. Recheck CBC in a.m. Vitals are stable. DVT Prophylaxis: SCD's, Lovenox Resuscitation Status: Do Not Resuscitate - Physician Narrative Physician: Sosa Zarco MD Narrative: Date: 01/13/18 Time: 2214 I have independently evaluated and examined this patient. I reviewed the chart, the patient's history, and the RETAIL COORDINATOR/PA's documented findings as above. We discussed and formulated the assessment and plan as above with additions as below: Mrs. Nieves was seen earlier with her daughter at bedside. She reported that she still has a tiny bit of exertional dyspnea but no cough or sputum. Her daughter forced the patient to acknowledge that she had transient chest pain which the patient characterized as "gas" early in the day which lasted one or 2 minutes and was without associated nausea, diaphoresis, or dyspnea but was associated with flatus. This did not concern the patient and she would not have mentioned it to me at all. She denied nausea and reports that she ambulated with nasal cannula oxygen on without lightheadedness. She asked if she'll be able to get rid of "the bag" for her urine soon. Respirations are nonlabored with diminished airflow but clear breath sounds, patient alert and cooperative Bladder training initiated Repeat chest x-ray in a.m. Titrate prednisone to [address] More Doing well, off Vapotherm/BiPAP. Hospital Course Summary Disclaimer: The visit summary below is not to be considered part of the above Progress Note. Hospital Course: 01/06/18: Admit to CCU Admit, inpt status under the hosp service. Continue diuresis with Lasix 40 mg IV BID, BiPAP, DuoNebs. Echo. Trend trop. ABG in am. Place Young for accurate I/O. Sx & clinical scenario more consistent with CHF vs PNA or COPD exac. - nonetheless cannot r/o; cover w/ azithro/rocephin. -however, sepsis w/u pending -consider IV steroids Head CT pending. NPO until cleared by ST. D/W jeff. Pt's sister is DPOA. DNR status. 01/07/18 patient remains critically ill. Arterial blood gases interpreted and PCO2 at 4 AM remained at 80. I'm not certain as to why she is retaining quite so much carbon dioxide. Ordered a repeat at 12 hours. Overall respiratory distress appears to be improving slightly but she is nowhere near able to wean off BiPAP this time. Family is asking if there is additional candidate requires performed. At this point without intubation I think that she is nearing maximal medical need assuming that she remains hemodynamically stable: she is on antibiotics respiratory treatment ventilatory support noninvasively and getting diuretics to offload fluids. Patient will remain in the ICU on BiPAP with current treatment. HCO2 retention may yet improve on the current treatment given little more time. Failing this will discuss with pulmonary. Starting patient on Lovenox prophylactic dose 01/08/18 at this time will take the patient out of the ICU. She is weaned off BiPAP now. Will continue antibiotics. And will give supplemental oxygen at high rate of delivery but attempt weaning is down to a baseline of 34 L. Acute encephalopathy appears resolved. COPD and congestive heart failure are still ongoing but will decrease the rate of diuresis at this time. 01/09/18 Improving though still on high-flow o2 (Vapotherm). Repeat BMP to assess CO2. ABG in am. CXR from yesterday personally reviewed - improving edema Repeat trop to ensure downward trend. Minimal elevation noted consistent with type 2 SD from hypoxia/CO2 retention or possibly CHF and potential chronic trop leak. She denies anginal symptoms. Resume home ASA and Lipitor. Negative fluid balance with declining weight. Continue with Lasix 40 mg IV BID; resume home spironolactone (K was down to 3.6 yest - pending today). Repeat CXR tomorrow am and consider transitioning to home dose Lasix 40 mg PO daily. Start oral steroids, Pred 40 mg daily. Cont Rocephin/Nebs/Pulmicort for COPD exac. Minimal wheezing on exam. Increase activity level as tolerated. Consult PT/OT for the morning. Echo report: IMPRESSION 1. Normal LV systolic function with ejection fraction of about 65%. 2. Trace of pericardial effusion with no echocardiographic evidence of tamponade. 3. Concentric left ventricular hypertrophy. 4. Device wires in the right heart. 5. Mitral annulus calcification with mitral sclerosis and trace of mitral regurgitation. 6. Aortic sclerosis with trace of aortic insufficiency. 7. Moderate tricuspid regurgitation with severe pulmonary hypertension with estimated pulmonary artery systolic pressure of 72. 8. Mild pulmonary insufficiency. 01/10/18 ABG this am showed compensated resp acidosis. Pt A&O. cont on vapotherm. CO2 elevated at 46; consider pulmonary consultation. Stop IV diuresis and resume home lasix 40 mg PO daily. Give Diamox 500 mg x1. Weight down 4.5 kg from admit. Renal function is stable. Cont prednisone. Abx converted to keflex. mild hypokalemia - replacement ordered PT/OT -- inpt therapy recommended. CT chest: 1. Patient shows bilateral pleural effusions and partial collapse of both lower lobes although, there is no fluid collection that appears to be clearly in a nondependent position to support significant loculated fluid. 2. Significantly increased kyphosis with degenerative changes and bridging osteophytes at multiple locations. 3. Mild cardiac prominence some of which may be accentuated by the kyphotic curvature. Patient shows a permanent pacemaker in position. imaging: chest x-ray showed no significant improvement and so I ordered a CT exam of the chest. This was reviewed with Dr. Walker in radiology. The pleural effusions are much less prominent than I had expected from the plain films. Although there might be some small benefit to bilateral thoracentesis, it does not appear to be the amount of benefit that will change the course of her medical treatment here. For this reason we're placing her on BiPAP and will add diuretics. Assessment and plan: acute respiratory distress with pleural effusions and probable pneumonia the bases. Continue antibiotics. Continue breathing treatments and add BiPAP to the regimen 01/11/18 Resume IV diuretics Lasix 40 mg BID -- pleural effusions too small to be tapped. BiPAP HS; PRN during the day. Cont Vapotherm, wean as able. Consult Dr. More. Will leave Young in place since we are continuing IV diuretics. Weight trending down, neg fluid balance. CO2 decreased to 43 after receiving Diamox yesterday. K 3.7. Cont Keflex, azithro. 01/12/18 Patient reports that she is feeling better. Family expresses concern about the care she received in group home prior to admission and would like to evaluate possible discharge to [facility]. Case management working on discharge plan. Hypokalemia noted today (K 3.5). Will give KCl 20 mEq po x 1 dose at dinner and recheck in AM. Lasix 40mg po daily was restarted on 01/11/18. Patient on spironolactone daily so no additional potassium ordered daily. Monitor closely. Continue BiPAP HS and PRN during the day. Continue Vapotherm, weaning as able. Patient seen and evaluated by Dr. More on 01/11/18 who recommended adding EZpap to nebulized treatments and continuing vapotherm, weaning as able. Appreciate his time and expertise. Weight stable. Continue to monitor closely. CO2 continues to trend down (41 today). Diamox given 01/10/18. Continue to monitor closely. Cont Keflex and azithromycin for treatment of suspected pulmonary pathogens - day 3. Recheck labs in AM to monitor blood counts, electrolytes and renal function. 01/13/18 Patient continues to improve. Able to wean off Vapotherm and on to oxygen per nasal cannula. Currently on 3 L. Cont Keflex and azithromycin for treatment of suspected pulmonary pathogens - day 4. Continue DuoNeb and budesonide treatments and Acapella. Recheck labs in AM to monitor blood counts, electrolytes and renal function. Decrease in hemoglobin from 13.9 on admission to 11.6 today. Recheck CBC in a.m. Vitals are stable.
[2018-01-13] MEDS: ACETAMINOPHEN 500 MG TABLET PO SCH (21:08)
[2018-01-13] MEDS: ATORVASTATIN 10 MG TABLET PO SCH (21:08)
[2018-01-14] MEDS: OMEPRAZOLE 20 MG CAPSULE PO SCH (06:32)
[2018-01-14] MEDS ORDERED: PredniSONE 20 MG TABLET PO SCH (08:00)
[2018-01-14] MEDS: BUDESONIDE INH.SOLN 0.5mg/2ml NEB AEROSOL SCH (08:01)
[2018-01-14] MEDS: ALBUTEROL/IPRATROPIUM 2.5mg-0.5mg/3ml NEB AEROSOL SCH ×3 (08:01→12:44)
[2018-01-14 08:19] VITALS: BP 120/56; TEMP 96.8
[2018-01-14] MEDS: GUAIFENESIN LA 600 MG TABLET PO SCH (08:23)
[2018-01-14] MEDS: SPIRONOLACTONE 25 MG TABLET PO SCH (08:24)
[2018-01-14] MEDS: FUROSEMIDE 40 MG TABLET PO SCH (08:24)
[2018-01-14] MEDS: ENOXAPARIN 40 MG/0.4 ML INJECTION SQ SCH (08:24)
[2018-01-14] MEDS: POLYETHYL GLYCOL 3350 17gm PACKET PO SCH (08:24)
[2018-01-14] MEDS: AZITHROMYCIN 500 MG TABLET PO SCH (08:24)
--- NOTE | 2018-01-14 09:18 | XRay Report ---
INDICATION: pleural effusion PROCEDURE: CHEST 2-VIEWS UPRIGHT (PA & LAT) Encounter: Initial COMPARISON: Chest CT dated January 10, 2018 FINDINGS: Stable pleural effusions, left greater than right. Pulmonary edema has improved with a mild amount remaining. No pneumothorax or new consolidation. Cardiac silhouette remains enlarged. Mediastinal contours are stable. Left pacemaker. Impression: Improving congestive failure. .
[2018-01-14] MEDS: TOLTERODINE 2 MG TABLET PO SCH (09:29)
[2018-01-14 09:34] VITALS: PULSE 77
--- NOTE | 2018-01-14 11:00 | Extended Care Facility Orders ---
<Shazia Whitehead - Last Filed: 01/14/18 10:58> Admission Orders Admit to:: [facility] Allergies/Adverse Reactions: Allergies No Known Allergies Allergy (Verified 01/06/18 16:32) Admitting Diagnosis: acute resp. failure poss pneumonia CHF exacerbatio Admitting Physician: Sosa Zarco MD Attending Physician: Sosa Zarco MD Code Status: Do Not Resuscitate Anticiapted Length of Stay: greater than 30 days Rehab Potential: fair Rehab Prognosis: fair Diet: 01/08/18 Dinner Regular Diet [DIET] Diet Modifications: Food Consistency: MECSOF May use Facility Protocol or Standing Orders: Yes May have flu vaccine: Yes - Additional Information In Event of Arrest: Do Not Start CPR Resident is Aware of Diagnosis: Yes Laboratory/Radiology: BMP in 1 week to follow up elevated carbon dioxide and BUN, and to follow potassium. Referrals: Charles Burns MD [Primary Care Provider] - 1 Week Additional Orders: The prednisone instructions are 30 mg 3 days, 20 mg 3 days 10 mg 3 days to give with food. <Sosa Zarco - Last Filed: 01/14/18 12:28> Admission Orders Admitting Diagnosis: acute resp. failure poss pneumonia CHF exacerbatio Admitting Physician: Sosa Zarco MD Attending Physician: Sosa Zarco MD Code Status: Do Not Resuscitate Diet: 01/08/18 Dinner Regular Diet [DIET] Diet Modifications: Food Consistency: [facility]EC[facility] Certification: I certify that SNF services are required to be given on an Inpatient basis because of the patients need for long term care on a continuing basis for the condition(s) for which he/she received inpatient hospital services prior to his/her transfer to the SNF. SNF inpatient care is necessary for the following reasons
[2018-01-14] MEDS: ASPIRIN *EC* 81 MG TABLET PO SCH (11:11)
[2018-01-14 12:49] VITALS: RESP 16; O2SAT 97
--- NOTE | 2018-01-14 18:26 | Discharge Summary ---
Discharge Information Date of admission: 01/06/18 18:49 Anticipated date of discharge: 01/14/18 Attending Physician: Sosa Zarco MD Primary care physician: Charles Burns MD Consults: Consulting Provider: Marcelo More Reason For Exam: copd Dr More's impression: Sxs likely due to severe kyphosis of the C/T spine with restrictive lung disease, atelectasis, possible aspiration pneumonia Recommendation during hospitalization to continue Vapotherm and wean as tolerated. Add EZpap to neb treatments - Discharge Diagnosis (1) Acute on chronic respiratory failure with hypoxemia Status: Acute Assessment Acute/chronic hypoxic respiratory failure Acute CHF exac.-EF 65%, concentric LVH Asthma/COPD with exac. 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 Left ventricle end-diastolic dimension is normal. Left ventricle wall thickness is increased. LV systolic function is normal with ejection fraction of about 65%. Right atrium is normal. Right ventricle is normal. Aortic root dimension is normal. Mitral annulus is calcified. Mitral valve leaflets are sclerotic with trace of mitral regurgitation. Aortic valve shows fibrocalcific changes with no stenosis. Trace of aortic insufficiency is present. Tricuspid valve shows moderate tricuspid regurgitation with severe pulmonary hypertension with estimated pulmonary artery systolic pressure of 72. Pulmonary valve shows mild pulmonary insufficiency. There is there is trace of pericardial effusion with no echocardiographic evidence of tamponade. IMPRESSION 1. Normal LV systolic function with ejection fraction of about 65%. 2. Trace of pericardial effusion with no echocardiographic evidence of tamponade. 3. Concentric left ventricular hypertrophy. 4. Device wires in the right heart. 5. Mitral annulus calcification with mitral sclerosis and trace of mitral regurgitation. 6. Aortic sclerosis with trace of aortic insufficiency. 7. Moderate tricuspid regurgitation with severe pulmonary hypertension with estimated pulmonary artery systolic pressure of 72. 8. Mild pulmonary insufficiency. - Laboratory Labs: Dismissal labs 01/14/18 01/14/18 04:28 04:28 WBC 6.1 RBC 3.90 L Hgb 11.7 L Hct 38.0 Plt Count 168 Sodium 138 Potassium 4.0 Chloride 94 L Carbon Dioxide 39 H BUN 37.0 H Creatinine 0.8 Glucose 106 Calcium 8.8 Admission labs 01/06/18 01/06/18 16:23 16:23 WBC 10.6 RBC 4.63 Hgb 13.9 Hct 47.9 H Plt Count 174 Sodium 139 Potassium 5.1 H Chloride 92 L Carbon Dioxide 38 H BUN 22.0 H Creatinine 0.5 L Glucose 178 H Troponin I 0.059 NT-Pro-B Natriuret Pep 2760 H - Microbiology Microbiology 01/06/18 19:24 Peripheral/Iv Start Blood Culture - Final No Growth After 5 Days 01/06/18 19:22 Peripheral/Iv Start Blood Culture - Final No Growth After 5 Days - Radiology Radiology: Date of Exam: 01/10/18 Indication: 10L O2 dependant w/ Effusions, Need tapped? CT chest w con: Findings: Patient shows a significantly increased kyphotic deformity. The patient shows bilateral pleural effusions and bibasilar lower lobe partial atelectasis. The patient did not demonstrate obvious findings that would support a loculated effusions as there is no nondependent fluid collection identified. Patient shows mild cardiac prominence with a permanent pacemaker in position. No pathologic adenopathy is appreciated. No abnormal dilatation of the aorta noted. Impression: 1. Patient shows bilateral pleural effusions and partial collapse of both lower lobes although, there is no fluid collection that appears to be clearly in a nondependent position to support significant loculated fluid. 2. Significantly increased kyphosis with degenerative changes and bridging osteophytes at multiple locations. 3. Mild cardiac prominence some of which may be accentuated by the kyphotic curvature. Patient shows a permanent pacemaker in position. Date of Exam: 01/14/18 INDICATION: pleural effusion PROCEDURE: CHEST 2-VIEWS UPRIGHT (PA & LAT) FINDINGS: Stable pleural effusions, left greater than right. Pulmonary edema has improved with a mild amount remaining. No pneumothorax or new consolidation. Cardiac silhouette remains enlarged. Mediastinal contours are stable. Left pacemaker. Impression: Improving congestive failure. History of Present Illness HPI: Ivonne Nieves is an 87 y/o resident of [facility] who has recently been seen/ treated by [facility] for COPD exacerbation - those notes were reviewed for collateral hx as pt was nonresponsive in ED. She developed increased SOA on 01/05/18 without cough. On 01/06/18, a prednisone taper and Lasix were restarted. She's also been on DuoNeb treatments. She was saturating 90-93% on 3L of O2, which is worse than baseline. She's had conversational dyspnea. Per records, she 's been isolating herself to her room. She also c/o increased body aches. She denied fatigue/weakness. PO intake has been stable. She's denied fever/chills, dizziness, headache, URI sx. She denies abd pain, n/v/d. No dysuria. She does have some underlying memory problems thus ROS is somewhat limited at baseline. Pt's niece reports that the [facility] called reporting that she's been tired and more SOA, but up until the afternoon on 01/06/18 hadn't wanted to go to the hosp. CXR was pos for CHF, poss PNA. She was started on BiPAP. ProBNP was elevated. Renal function was preserved. She was diuresed with Lasix 40 mg IV x1 and started on cefepime for PNA. She was admitted to inpt status, los expected to exceed 2 overnights. Objective Vital signs: Temperature 96.8 F 01/14/18 07:00 Pulse Rate 77 01/14/18 08:04 Respiratory Rate 16 01/14/18 12:44 Blood Pressure 120/56 01/14/18 07:00 Pulse Oximetry 97 01/14/18 12:44 Rhythm: Premature Atrial Contractions Cardiac Ectopy: Rare PVC's Height/Weight/BMI: Height 1.63 m Weight 73 kg Body Mass Index 28.0 - Constitutional Present: no acute distress, well nourished, well developed - Routine HEENT Exam Head: Present: normocephalic, atraumatic - Routine Respiratory Exam Present: decreased breath sounds (bilateral bases), CTA bilaterally. Absent: wheezes - Routine Cardiovascular Exam Present: RRR, no murmur - Routine Abdominal Exam Present: soft, non distended, non tender - Routine Extremities Exam Present: no edema, normal capillary refill - Routine Skin Exam Present: dry, warm - Routine Neurological Exam Present: alert, oriented X3 - Routine Lymphatic Exam Lymphatic: Absent: adenopathy - Routine Psychiatric Exam Present: normal affect, cooperative Hospital Course This is a general summary of the patient's hospital course. For more details refer to the complete medical record. Hospital course: 01/06/18: Admit to CCU Admit, inpt status under the hosp service. Continue diuresis with Lasix 40 mg IV BID, BiPAP, DuoNebs. Echo. Trend trop. ABG in am. Place Young for accurate I/O. Sx & clinical scenario more consistent with CHF vs PNA or COPD exac. - nonetheless cannot r/o; cover w/ azithro/rocephin. -however, sepsis w/u pending -consider IV steroids Head CT pending. NPO until cleared by [facility]. Pt's sister is DPOA. DNR status. 01/07/18 patient remains critically ill. Arterial blood gases interpreted and PCO2 at 4 AM remained at 80. I'm not certain as to why she is retaining quite so much carbon dioxide. Ordered a repeat at 12 hours. Overall respiratory distress appears to be improving slightly but she is nowhere near able to wean off BiPAP this time. Family is asking if there is additional candidate requires performed. At this point without intubation I think that she is nearing maximal medical need assuming that she remains hemodynamically stable: she is on antibiotics respiratory treatment ventilatory support noninvasively and getting diuretics to offload fluids. Patient will remain in the ICU on BiPAP with current treatment. HCO2 retention may yet improve on the current treatment given little more time. Failing this will discuss with pulmonary. Starting patient on Lovenox prophylactic dose 01/08/18 at this time will take the patient out of the ICU. She is weaned off BiPAP now. Will continue antibiotics. And will give supplemental oxygen at high rate of delivery but attempt weaning is down to a baseline of 34 L. Acute encephalopathy appears resolved. COPD and congestive heart failure are still ongoing but will decrease the rate of diuresis at this time. 01/09/18 Improving though still on high-flow o2 (Vapotherm). Repeat BMP to assess CO2. ABG in am. CXR from yesterday personally reviewed - improving edema Repeat trop to ensure downward trend. Minimal elevation noted consistent with type 2 VA from hypoxia/CO2 retention or possibly CHF and potential chronic trop leak. She denies anginal symptoms. Resume home ASA and Lipitor. Negative fluid balance with declining weight. Continue with Lasix 40 mg IV BID; resume home spironolactone (K was down to 3.6 yest - pending today). Repeat CXR tomorrow am and consider transitioning to home dose Lasix 40 mg PO daily. Start oral steroids, Pred 40 mg daily. Cont Rocephin/Nebs/Pulmicort for COPD exac. Minimal wheezing on exam. Increase activity level as tolerated. Consult PT/OT for the morning. 01/10/18 ABG this am showed compensated resp acidosis. Pt A&O. cont on vapotherm. CO2 elevated at 46; consider pulmonary consultation. Stop IV diuresis and resume home lasix 40 mg PO daily. Give Diamox 500 mg x1. Weight down 4.5 kg from admit. Renal function is stable. Cont prednisone. Abx converted to Keflex. mild hypokalemia - replacement ordered PT/OT - inpt therapy recommended. CT chest reveals bilateral pleural effusions with some compression of bilateral lower lobes, significant kyphosis. Pleural effusions are less prominent by CT than expected from standard chest x- ray; continue diuresis-thoracentesis seems unlikely to be of significant benefit. 01/11/18 Resume IV diuretics Lasix 40 mg BID -- pleural effusions too small to be tapped. BiPAP HS; PRN during the day. Cont Vapotherm, wean as able. Consult Dr. More. Will leave Young in place since we are continuing IV diuretics. Weight trending down, neg fluid balance. CO2 decreased to 43 after receiving Diamox yesterday. K 3.7. Cont Keflex, azithro. 01/12/18 Patient reports that she is feeling better. Family expresses concern about the care she received in intermediate prior to admission and would like to evaluate possible discharge to [facility]. Hypokalemia noted today (K 3.5). Will give KCl 20 mEq po x 1 dose at dinner and recheck in AM. Lasix 40mg po daily was restarted on 01/11/18. Patient on spironolactone daily so no additional potassium ordered daily. Monitor closely. Continue BiPAP HS and PRN during the day. Continue Vapotherm, weaning as able. Patient seen and evaluated by Dr. More on 01/11/18 who recommended adding EZpap to nebulized treatments and continuing vapotherm, weaning as able. Weight stable. Continue to monitor closely. CO2 continues to trend down (41 today). Diamox given 01/10/18. Continue to monitor closely. Cont Keflex and azithromycin for treatment of suspected pulmonary pathogens - day 3. Recheck labs in AM to monitor blood counts, electrolytes and renal function. 01/13/18 Patient continues to improve. Able to wean off Vapotherm and on to oxygen per nasal cannula. Currently on 3 L. Cont Keflex and azithromycin for treatment of suspected pulmonary pathogens - day 4. Continue DuoNeb and budesonide treatments and Acapella. Recheck labs in AM to monitor blood counts, electrolytes and renal function. Decrease in hemoglobin from 13.9 on admission to 11.6 today. Recheck CBC in a.m. Vitals are stable. 01/14/18 Patient doing well. Chest x-ray shows improving congestive failure. Remains on 3 L O2 per nasal cannula. DC patient back to intermediate today. She has completed 5 days of azithromycin and cephalexin. Will taper her prednisone 30 mg 3 days, 20 mg 3 days, 10 mg 3 days. Follow-up with Dr. Burns in 1 week. Time spent with patient: discharge greater than 30 minutes Resuscitation Status: Do Not Resuscitate Discharge Plan - Discharge Disposition Discharge Date: 01/14/18 Disposition: 04 To [facility] Home/Facility *Condition: Critical Reason For Visit (Visit label in EMR): acute resp. failure poss pneumonia CHF exacerbatio - Discharge Medications *Discharge Medications: New PredniSONE [Deltasone 20 mg] 30 mg PO WB tab Continue Lutein 20 mg PO DAILY #0 Cetirizine HCl [Zyrtec] 10 mg PO HS #0 Acetaminophen [Acetaminophen Extra Strength] 1,000 mg PO HS #0 tab Furosemide [Lasix 40 mg Tab] 40 mg PO DAILY PEG 3350 17gm PACKET [Miralax] 17 gm PO DAILY Magnesium Hydroxide [Milk of Magnesia] 15 - 30 ml PO DAILY PRN PRN Reason: Constipation Simethicone 125 mg PO HS Mag Hydrox/Aluminum Hyd/Simeth [Alum-Mag Hydroxide-Simeth Liq] 30 ml PO Q4H PRN PRN Reason: Epigastric Distress Guaifenesin/Dextromethorphan [Guaifenesin Dm Syrup] 10 ml PO Q6H PRN PRN Reason: Prn Orders Acetaminophen [Tylenol] 500 - 1,000 mg PO BID PRN PRN Reason: Pain Albuterol/Ipratropium [Duoneb] 1 unit AEROSOL TID Budesonide 0.5 mg IH BID Dextromethorphan HBr/B-Jhonny [Cepacol Sorethroat-Cough Angela] 1 lozenge PO PRN PRN PRN Reason: Sore Throat Peg 3350 238 G Bottle [Miralax] 17 gm PO DAILY PRN PRN Reason: Constipation Calcium Carb/Vitamin D3/Vit K1 [Viactiv Soft Chew] 1 tab PO BID Atorvastatin [Lipitor] 10 mg PO HS [place] Oil 1,000 mg PO DAILY Multivitamin [One Daily Multivitamin] 1 tab PO NOON Tolterodine Tartrate [Detrol] 1 mg PO BID Omeprazole 40 mg PO ACB #0 Cholecalciferol (Vitamin D3) [Vitamin D3] 2,000 mg PO DAILY #0 Spironolactone [Aldactone] 25 mg PO DAILY Ondansetron Tab [Zofran Po] 4 mg PO Q8H PRN PRN Reason: Nausea Aspirin [Adult Aspirin] 81 mg PO NOON Ativan (lorazepam) 0.5 mg tablet 0.5 mg PO HS PRN #30 tab PRN Reason: anxiety Changed Guaifenesin/Dextromethorphan [Robitussin Cough-Chest Dm Liq] 10 ml PO PRN #0 guaiFENesin [Mucinex] 1,200 mg PO PRN #0 - Discharge Packet/Instructions *Diet: Regular diet-mechanical soft *Activity: As tolerated *Pain Management/Treatment: N/A *Wound Care: n/a Additional Instructions: You'll take the prednisone 30 mg 3 days, 20 mg 3 days , 10 mg 3 days with food. You need no further antibiotics. *Expected Signs/Symptoms: Continued slow improvement. *Notify Physician if: You have increasing shortness of breath, chest pain or fever *During Business Hours Contact: Your nurse at [facility] *After Business Hours Contact: Your nurse at [facility] *Pending Lab/Results: No Pending Lab - Referrals/Follow Up *Referrals/Follow Up: Charles Burns MD [Primary Care Provider] - 1 Week - Patient Handouts Patient Handouts: MTC Congestive Heart Failure, Chronic Respiratory Failure (DC ) - Dismissal Complete Discharge Instructions are:: Complete Physician Narrative - Narrative Physician: Sosa Zarco MD Attestation Narrative: Date: 01/14/18 Time: 2119 I have independently evaluated and examined this patient. I reviewed the chart, the patient's history, and the [employer]/PA's documented findings as above. We discussed and formulated the assessment and plan as above with additions as below: Mrs. Nieves was seen this morning; BiPAP was utilized much of the night last night but she remains off of Vapotherm during the day and is on 3 L supplemental oxygen with stable saturations. She denies dyspnea and his voided following removal of Young catheter earlier this morning. She denies cough or sputum production. Chest x-ray demonstrates improved heart failure with residual left pleural effusion although it appears somewhat improved to me then on prior film. The patient is alert and cooperative, respirations are nonlabored and there is only slight decrease in breath sounds at the bases. Stable for discharge, titrate prednisone off over the next 7-10 days. Continue diuresis.
== END 2018-01-14 13:00 | DRG 280 ==
LOC: ED 16:14 → SUATTDRO 18:49 → EDHOLD 18:49 → CCU 19:50 → MED 01-08 12:15
PROVIDERS: ADMIT Family Medicine; ATTEND Internal Medicine

== ENCOUNTER 2018-02-09 17:46 | Inpatient (IN) ==
[~2018-02-09 17:46] MED LIST: ALBUTEROL/IPRATROPIUM 2.5mg-0.5mg/3ml NEB AEROSOL PRN
[2018-02-09 17:47] VITALS: BMI 27.9
--- NOTE | 2018-02-09 17:56 | History & Physical Report ---
History of Present Illness Date: 02/09/18 Chief complaint: SOA HPI: Patient is an 87-year-old female well known to the hospitalist service from previous admissions. She woke up this morning and felt short of breath. She states last night she felt completely fine. She states her oxygen saturation on her normal 3 L of oxygen this morning was in the 80s. It improved following nebulizer treatment. She went in to see her PCP in the office and chest x-ray showed worsening right basilar airspace disease possibly representing increasing compressive atelectasis from the effusion or superimposed pneumonia/ aspiration. She also has persistent congestive failure with increasing right pleural fluid. She also has a reported low-grade fever of 100. She states her cough is worse than usual and she does feel more tight and wheezy than usual. She's not having any more of a productive cough than what she usually does. She did have some nausea this morning with eating. Review of Systems All systems PM: 10-point ROS was reviewed, no additional remarkable complaints except (shortness of breath, increased cough, nausea earlier today) Past Medical History Medical History: Medical History (Last Updated 07/07/17 @ 13:04 by Laura Holman Mai) Pacemaker (Chronic) Osteoarthritis involving multiple joints on both sides of body (Chronic) Osteoporosis (Chronic) DEXA 10/16/16. R femur T score -2.5 Thrombocytopenia (Chronic) COPD with hypoxia (Chronic) Venous stasis of lower extremity (Chronic) Localized osteoporosis of spine (Chronic) HTN (hypertension) (Chronic) Multinodular goiter Surgical History: Tonsilectomy. Pacemaker placement secondary to complete heart block. Left total hip replacement. Colonoscopy with polyp removal resulting in bowel perforation. Echo in 2011 showed mild-mod valvular disease with normal EF and normal diastolic parameters. Family History: Father - in his late 40's secondary to [place], CAD and hypertension. Mother - healthy and of old age around the age of 96. Brother - alcohol abuse. Family History: As Above - Social History Smoking status: Never smoker Substance use type: does not use Alcohol intake frequency: does not drink Current occupational status: retired Current residence: [facility] Social history: Emerald Correa APRN - PCP Medications Home Medications Medication Instructions Recorded Confirmed Type Acetaminophen [Acetaminophen Extra 1,000 mg PO HS #0 tab 07/01/15 01/06/18 History Strength] Cetirizine HCl [Zyrtec] 10 mg PO HS #0 07/01/15 01/06/18 History Cholecalciferol (Vitamin D3) 2,000 mg PO DAILY #0 07/01/15 01/06/18 History [Vitamin D3] Lutein 20 mg PO DAILY #0 07/01/15 01/06/18 History Omeprazole 40 mg PO ACB #0 07/01/15 01/06/18 History Furosemide [Lasix 40 mg Tab] 40 mg PO DAILY 07/09/17 01/06/18 History PEG 3350 17gm PACKET [Miralax] 17 gm PO DAILY 07/09/17 01/06/18 History Spironolactone [Aldactone] 25 mg PO DAILY 07/09/17 01/06/18 History Mag Hydrox/Aluminum Hyd/Simeth 30 ml PO Q4H PRN 07/21/17 01/06/18 History [Alum-Mag Hydroxide-Simeth Liq] Magnesium Hydroxide [Milk of 15 - 30 ml PO DAILY PRN 07/21/17 01/06/18 History Magnesia] Simethicone 125 mg PO HS 07/21/17 01/06/18 History Acetaminophen [Tylenol] 500 - 1,000 mg PO BID PRN 01/06/18 01/06/18 History Albuterol/Ipratropium [Duoneb] 1 unit AEROSOL TID 01/06/18 01/06/18 History Arctic Mary Beth Oil 1,000 mg PO DAILY 01/06/18 01/06/18 History Aspirin [Adult Aspirin] 81 mg PO NOON 01/06/18 01/06/18 History Atorvastatin [Lipitor] 10 mg PO HS 01/06/18 01/06/18 History Budesonide 0.5 mg IH BID 01/06/18 01/06/18 History Calcium Carb/Vitamin D3/Vit K1 1 tab PO BID 01/06/18 01/06/18 History [Viactiv Soft Chew] Dextromethorphan HBr/B-Jhonny 1 lozenge PO PRN PRN 01/06/18 01/06/18 History [Cepacol Sorethroat-Cough Angela] Guaifenesin/Dextromethorphan 10 ml PO Q6H PRN 01/06/18 01/06/18 History [Guaifenesin Dm Syrup] Multivitamin [One Daily 1 tab PO NOON 01/06/18 01/06/18 History Multivitamin] Ondansetron Tab [Zofran Po] 4 mg PO Q8H PRN 01/06/18 01/06/18 History Peg 3350 238 G Bottle [Miralax] 17 gm PO DAILY PRN 01/06/18 01/06/18 History Tolterodine Tartrate [Detrol] 1 mg PO BID 01/06/18 01/06/18 History Ativan (lorazepam) 0.5 mg tablet 0.5 mg PO HS PRN #30 tab 01/07/18 Rx Guaifenesin/Dextromethorphan 10 ml PO PRN #0 01/14/18 01/06/18 Rx [Robitussin Cough-Chest Dm Liq] PredniSONE [Deltasone 20 mg] 30 mg PO WB tab 01/14/18 Rx guaiFENesin [Mucinex] 1,200 mg PO PRN #0 01/14/18 01/06/18 Rx Allergies Allergy/AdvReac Type Severity Reaction Status Date / Time No Known Allergies Allergy Verified 02/09/18 15:30 Exam Vital Signs: Temperature 97.9 F 02/09/18 17:13 Pulse Rate 92 02/09/18 17:15 Respiratory Rate 18 02/09/18 17:29 Blood Pressure 133/67 02/09/18 17:13 Pulse Oximetry 95 02/09/18 17:29 Height/Weight/BMI: Height 1.63 m Weight 73.9 kg Body Mass Index 27.9 - Constitutional Present: no acute distress, well nourished, well developed - Routine HEENT Exam Head: Present: normocephalic, atraumatic Eye: Absent: conjunctival icterus, scleral injection ENT: Present: mucous membranes moist, oropharynx clear - Routine Neck Exam Present: supple. Absent: lymphadenopathy, thyromegaly - Routine Respiratory Exam Present: decreased breath sounds (bilateral bases) Comments: She has a view diffuse expiratory wheezes in the upper her lung kim and mild crackling. - Routine Cardiovascular Exam Present: RRR, murmur - Routine Abdominal Exam Present: soft, normoactive bowel sounds. Absent: tenderness, distended - Routine Extremities Exam Present: no edema, normal capillary refill - Routine Skin Exam Present: dry, warm - Routine Neurological Exam Present: alert, oriented X3, CN II-XII intact - Routine Psychiatric Exam Present: normal affect, cooperative Results - Labs CBC & Chem 7: 02/09/18 19:10 02/09/18 19:09 Assessment and Plan (1) Acute on chronic respiratory failure with hypoxemia Current visit: No Status: Chronic (2) Chronic hypercapnic respiratory failure Current visit: Yes Status: Acute Assessment and Plan: Assessment Acute (on chronic) hypoxic respiratory failure Probable aspiration pneumonia CHF-rule out acute exacerbation Chronic hypercarbic respiratory failure with elevated HCO3 Tricuspid regurgitation/severe pulmonary hypertension/concentric LVH COPD with chronic hypoxia Venous stasis of the lower extremities Osteoporosis Hypertension Osteoarthritis History of complete heart block with pacemaker implantation Restrictive lung disease secondary to kyphosis Hyperlipidemia Plan Admit, IP given her significant hypoxia. She desaturated to 60% on arrival as her portable oxygen ran out enroute. Stay expected to exceed 2 midnights given her acute hypoxic resp failure and comorbidities listed above. CBC, CMP, BNP, lactate, procal, BC x2. Duonebs, acapella and O2 titration to keep sats >90%. On 3L home O2. Start Unasyn for probable aspiration pneumonia. Weight is stable compared to previous dismissal weight. Will hold off on decision to diurese until labs are resulted. I&Os and daily weights. SCD's for DVT ppx. Omeprazole for GI ppx and GERD DNR Emerald Correa - PCP Discussed with Dr. Zarco. Review of previous hospital and office records performed. Medications not yet confirmed at time of documentation. Dr. Zarco to reconcile medications. DVT Prophylaxis: SCD's Resuscitation Status: Do Not Resuscitate - Physician Narrative Physician: Sosa Zarco MD Narrative: Date: 02/09/18 Time: 2049 I have independently evaluated and examined this patient. I reviewed the chart, the patient's history, and the MAMMAL KEEPER/PA's documented findings as above. We discussed and formulated the assessment and plan as above with additions as below: Mrs. Nieves presents with increasing dyspnea today with cough and significant increase in sputum production. The patient reports she felt well yesterday although records from the detention report worsening dyspnea for 2 days with coarse wheezes and temperature as noted above. She was seen by Emerald Sunny MAMMAL KEEPER earlier today where coarse breath sounds were reported and chest x-ray revealed increased pleural effusions and infiltrate. Severely kyphotic elderly female Posterior breath sounds are coarse bilaterally although she was not wheezing at time of my evaluation; crackles in the anterior right field, occasional scattered crackles left anterior field. Inspiratory effort triggers cough. Regular cardiac rhythm, abdomen soft, protuberant, nontender Chest x-ray reviewed by myself- minor increase in moderate left pleural effusion , small right pleural effusion, patchy right lower/middle infiltrate. Known hypoxic/hypercarbic chronic respiratory failure with worsening hypoxia and increased dyspnea/sputum/low-grade fever. Procalcitonin and lactic acid are unremarkable at < 0.05 and 0.9 respectively. WBC 4.7. Vital signs do not suggest sepsis. Probable aspiration with aspiration pneumonitis and worsening respiratory failure. ABG in a.m.; consult Dr. More regarding chronic hypercarbia. Last admission required Vapotherm for oxygenation but after diuresing significantly was able to convert to nasal cannula. HC03 remains significantly elevated, Diamox 1 in a.m. and reassess. Blood culture/sputum culture. Speech therapy 3 eval. PT/OT Discussed with travis Zhao records reviewed. Hospital Course Summary Disclaimer: The visit summary below is not to be considered part of the above Progress Note. Hospital Course: 02/09/18 Admit, IP given her significant hypoxia. She desaturated to 60% on arrival as her portable oxygen ran out enroute. Stay expected to exceed 2 midnights given her acute hypoxic resp failure and comorbidities listed above. CBC, CMP, BNP, lactate, procal, BC x2. Duonebs, acapella and O2 titration to keep sats >90%. On 3L home O2. Start Unasyn for probable aspiration pneumonia. Weight is stable compared to previous dismissal weight. Will hold off on decision to diurese until labs are resulted. I&Os and daily weights. SCD's for DVT ppx. Omeprazole for GI ppx and GERD DNR
[2018-02-09] MEDS ORDERED: ALBUTEROL/IPRATROPIUM 2.5mg-0.5mg/3ml NEB AEROSOL PRN (19:00)
[2018-02-09] MEDS: AMPICILLIN/SULBACTAM 3 G in NS 100 ML IV SCH (19:43)
[2018-02-09] MEDS: ALBUTEROL/IPRATROPIUM 2.5mg-0.5mg/3ml NEB AEROSOL SCH (21:49)
[2018-02-09] MEDS: BUDESONIDE INH.SOLN 0.5mg/2ml NEB AEROSOL SCH (21:49)
[2018-02-09] MEDS ORDERED: LORazepam 0.5 MG TABLET PO PRN ×2 (22:20→23:08)
[2018-02-09] MEDS ORDERED: ACETAMINOPHEN 325 MG TABLET PO PRN (22:22)
[2018-02-09] MEDS ORDERED: GUAIFENESIN/DM 5ml ORAL LIQUID PO PRN (23:08)
[2018-02-09] MEDS ORDERED: ACETAMINOPHEN 500 MG TABLET PO PRN (23:08)
[2018-02-09] MEDS ORDERED: HYDROCODONE/APAP 5mg/325mg TABLET PO PRN (23:08)
[2018-02-09] MEDS ORDERED: [UNRECOGNIZED DRUG - OTHER] PO PRN (23:08)
[2018-02-09] MEDS ORDERED: ONDANSETRON 4 MG TABLET PO PRN (23:08)
[2018-02-09] MEDS ORDERED: BENZOCAINE PO PRN (23:08)
[2018-02-09] MEDS ORDERED: NON-FORMULARY MEDICATION 1 EACH EACH (Mag Hydrox/Aluminum Hyd/Simeth [Alum-Mag Hydroxide-S PO PRN (23:08)
[2018-02-09] MEDS ORDERED: DEXTROMETHORPHAN PO PRN (23:08)
[2018-02-10] MEDS: AMPICILLIN/SULBACTAM 3 G in NS 100 ML IV SCH ×5 (00:04→23:52)
[2018-02-10] MEDS ORDERED: NON-FORMULARY MEDICATION 1 EACH EACH (Omeprazole [Omeprazole] 40 MG) PO SCH (06:30)
[2018-02-10] MEDS: OMEPRAZOLE 20 MG CAPSULE PO SCH (06:31)
[2018-02-10] MEDS ORDERED: MAG-AL + SIM ORAL LIQUID 30ml PO PRN (06:55)
[2018-02-10] MEDS ORDERED: MENTHOL COUGH DROPS (RICOLA) MM PRN (06:57)
[2018-02-10] MEDS: BUDESONIDE INH.SOLN 0.5mg/2ml NEB AEROSOL SCH ×2 (07:45→18:28)
[2018-02-10] MEDS: ALBUTEROL/IPRATROPIUM 2.5mg-0.5mg/3ml NEB AEROSOL SCH ×4 (07:45→18:28)
[2018-02-10] MEDS ORDERED: acetaZOLAMIDE 250 MG TABLET PO ONE (08:00)
[2018-02-10] MEDS ORDERED: [UNRECOGNIZED DRUG - OTHER] PO SCH (09:00)
[2018-02-10] MEDS ORDERED: VIT K1 PO SCH (09:00)
[2018-02-10] MEDS ORDERED: SPIRONOLACTONE 25 MG TABLET PO SCH (09:00)
[2018-02-10] MEDS ORDERED: TOLTERODINE TARTRATE 1 MG PO SCH (09:00)
[2018-02-10] MEDS ORDERED: VITAMIN D3 PO SCH (09:00)
[2018-02-10] MEDS ORDERED: CALCIUM CARB PO SCH (09:00)
[2018-02-10] MEDS ORDERED: NON-FORMULARY MEDICATION 1 EACH EACH (Lutein [Lutein] 20 MG) PO SCH (09:00)
[2018-02-10] MEDS ORDERED: CHOLECALCIFEROL 2000 MG PO SCH (09:00)
[2018-02-10] MEDS ORDERED: FUROSEMIDE 40 MG TABLET PO SCH (09:00)
[2018-02-10] MEDS ORDERED: [UNRECOGNIZED DRUG - OTHER] PO SCH (09:00)
[2018-02-10] MEDS: LUTEIN 20 MG CAPSULE PO SCH (09:49)
[2018-02-10] MEDS: TOLTERODINE 2 MG TABLET PO SCH ×2 (09:49→20:54)
[2018-02-10] MEDS: POLYETHYL GLYCOL 3350 17gm PACKET PO SCH (09:50)
[2018-02-10] MEDS: FUROSEMIDE 40 MG TABLET PO SCH (09:50)
[2018-02-10] MEDS: MULTI-VITAMIN + MINERAL TABLET PO SCH (09:50)
[2018-02-10] MEDS: CALCIUM 600 + VIT D 400 TABLET PO SCH ×2 (09:50→20:54)
[2018-02-10] MEDS: SPIRONOLACTONE 25 MG TABLET PO SCH (09:50)
[2018-02-10] MEDS ORDERED: NON-FORMULARY MEDICATION 1 EACH EACH (Multivitamin [One Daily Multivitamin] 1 TAB) PO SCH (12:00)
--- NOTE | 2018-02-10 12:17 | Fluoroscopy Report ---
Indication:oropharyngeal dysphagia Procedure:FL barium swallow modified MODIFIED BAR. SWALLOW STUDY: Technique: Videofluoroscopy was performed in conjunction with a sales account representative from speech pathology and a separate report and recommendations will be provided. Varying gradations of barium from thin to solid were administered. Due to the patient's severe kyphotic posture, no AP imaging was obtained. Findings: There was no aspiration noted with any of the consistencies. Impression: No aspiration seen. Please see the speech pathology report for additional details and recommendations. Fluoroscopy dose: 2.87 mGy (Cumulative air kerma) Franco Cassidy RPA/FATMATA performed this under my direct supervision. .
[2018-02-10] MEDS: ASPIRIN *EC* 81 MG TABLET PO SCH (12:21)
--- NOTE | 2018-02-10 13:07 | Pulmonology Consult Note ---
History of Present Illness Consult date: 02/10/18 Requesting physician: Eddie Hinojosa Reason for consult: dyspnea Chief complaint: low oxygen and short of breath History of present illness: This is an 87 year old woman with recurrent hospitalizations due to acute and chronic hypoxemic respiratory failure. She has severe thoracic and cervical spine kyphosis causing restrictive lung disease, bibasilar atelectasis. She was recently hospitalized for hypoxemia requiring high flow O2 to keep her sats >90%. She woke up and felt short of breath. She states last night she felt completely fine. She states her oxygen saturation on her normal 3 L of oxygen this morning was in the 80s. It improved following nebulizer treatment. She went in to see her PCP in the office and chest x-ray showed worsening right basilar airspace disease possibly representing increasing compressive atelectasis from the effusion or superimposed pneumonia/aspiration. She also has persistent congestive failure with increasing right pleural fluid. She also has a reported low-grade fever of 100. She states her cough is worse than usual and she does feel more tight and wheezy than usual. She's not having any more of a productive cough than what she usually does. She did have some nausea this morning with eating. Review of Systems All systems PM: 10-point ROS was reviewed, no additional remarkable complaints except (shortness of breath, increased cough, nausea earlier today) Past Medical History Medical History: Medical History (Last Updated 07/07/17 @ 13:04 by Laura Holman Mai) Pacemaker (Chronic) Osteoarthritis involving multiple joints on both sides of body (Chronic) Osteoporosis (Chronic) DEXA 10/16/16. R femur T score -2.5 Thrombocytopenia (Chronic) COPD with hypoxia (Chronic) Venous stasis of lower extremity (Chronic) Localized osteoporosis of spine (Chronic) HTN (hypertension) (Chronic) Multinodular goiter Surgical History: Tonsilectomy. Pacemaker placement secondary to complete heart block. Left total hip replacement. Colonoscopy with polyp removal resulting in bowel perforation. Echo in 2011 showed mild-mod valvular disease with normal EF and normal diastolic parameters. Family History: Father - in his late 40's secondary to [place], CAD and hypertension. Mother - healthy and of old age around the age of 96. Brother - alcohol abuse. Family History: As Above - Social History Smoking status: Never smoker Substance use type: does not use Alcohol intake frequency: does not drink Current occupational status: retired Current residence: [facility] ([facility] Patient Stated Medical History Hypertension Yes Other Cardiology Yes: heart failure Asthma Yes Chronic Obstructive Pulmonary Yes Disease (COPD) Pneumonia Yes Sleep Apnea No Gastroesophageal Reflux Yes Disease Other GI Yes: constipation Hx Incontinence Yes Other Hematologic Yes: THROMBOCYTOPENIA Osteoarthritis Yes Sepsis Yes Post Menopausal Yes Clinic Medical History (Last Updated 07/07/17 @ 13:04 by Laura Holman Mai) Pacemaker (Chronic Medical) Osteoarthritis involving multiple joints on both sides of body (Chronic Medical) Osteoporosis (Chronic Medical) DEXA 10/16/16. R femur T score -2.5 Thrombocytopenia (Chronic Medical) COPD with hypoxia (Chronic Medical) Venous stasis of lower extremity (Chronic Medical) Localized osteoporosis of spine (Chronic Medical) HTN (hypertension) (Chronic Medical) Multinodular goiter (Chronic Medical) Surgical History: Tonsilectomy. Pacemaker placement secondary to complete heart block. Left total hip replacement. Colonoscopy with polyp removal resulting in bowel perforation. Echo in 2011 showed mild-mod valvular disease with normal EF and normal diastolic parameters. - Social History Smoking status: Never smoker Substance use type: does not use Alcohol intake frequency: does not drink Housing: [facility] Current occupational status: retired Current residence: [facility] Medications Home Medications Medication Instructions Recorded Confirmed Type Acetaminophen [Acetaminophen Extra 1,000 mg PO HS #0 tab 07/01/15 02/09/18 History Strength] Cetirizine HCl [Zyrtec] 10 mg PO HS #0 07/01/15 02/09/18 History Cholecalciferol (Vitamin D3) 2,000 mg PO DAILY #0 07/01/15 02/09/18 History [Vitamin D3] Lutein 20 mg PO DAILY #0 07/01/15 02/09/18 History Omeprazole 40 mg PO ACB #0 07/01/15 02/09/18 History Furosemide [Lasix 40 mg Tab] 40 mg PO DAILY 07/09/17 02/09/18 History PEG 3350 17gm PACKET [Miralax] 17 gm PO DAILY 07/09/17 02/09/18 History Spironolactone [Aldactone] 25 mg PO DAILY 07/09/17 02/09/18 History Mag Hydrox/Aluminum Hyd/Simeth 30 ml PO Q4H PRN 07/21/17 02/09/18 History [Alum-Mag Hydroxide-Simeth Liq] Magnesium Hydroxide [Milk of 15 - 30 ml PO DAILY PRN 07/21/17 02/09/18 History Magnesia] Simethicone 125 mg PO HS 07/21/17 02/09/18 History Acetaminophen [Tylenol] 500 - 1,000 mg PO BID PRN 01/06/18 02/09/18 History Albuterol/Ipratropium [Duoneb] 1 unit AEROSOL TID 01/06/18 02/09/18 History Arctic Mary Beth Oil 1,000 mg PO DAILY 01/06/18 02/09/18 History Aspirin [Adult Aspirin] 81 mg PO NOON 01/06/18 02/09/18 History Atorvastatin [Lipitor] 10 mg PO HS 01/06/18 02/09/18 History Budesonide 0.5 mg IH BID 01/06/18 02/09/18 History Calcium Carb/Vitamin D3/Vit K1 1 tab PO BID 01/06/18 02/09/18 History [Viactiv Soft Chew] Dextromethorphan HBr/B-Jhonny 1 lozenge PO Q2HR PRN 01/06/18 02/09/18 History [Cepacol Sorethroat-Cough Angela] Guaifenesin/Dextromethorphan 10 ml PO Q6H PRN 01/06/18 02/09/18 History [Guaifenesin Dm Syrup] Multivitamin [One Daily 1 tab PO NOON 01/06/18 02/09/18 History Multivitamin] Ondansetron Tab [Zofran Po] 4 mg PO Q8H PRN 01/06/18 02/09/18 History Peg 3350 238 G Bottle [Miralax] 17 gm PO DAILY PRN 01/06/18 01/06/18 History Tolterodine Tartrate [Detrol] 1 mg PO BID 01/06/18 02/09/18 History Ativan (lorazepam) 0.5 mg tablet 0.5 mg PO HS PRN #30 tab 01/07/18 02/09/18 Rx Guaifenesin/Dextromethorphan 10 ml PO PRN #0 01/14/18 02/09/18 Rx [Robitussin Cough-Chest Dm Liq] guaiFENesin [Mucinex] 1,200 mg PO PRN #0 01/14/18 02/09/18 Rx Hydrocodone/APAP 5/325 [[place] 1 tab PO Q6HR PRN 02/09/18 02/09/18 History 5/325] Allergies Allergy/AdvReac Type Severity Reaction Status Date / Time No Known Allergies Allergy Verified 02/09/18 15:30 Exam Vital signs: Temperature 97.6 F 02/10/18 07:41 Pulse Rate 93 02/10/18 07:41 Respiratory Rate 28 H 02/10/18 11:15 Blood Pressure 143/75 H 02/10/18 07:41 Pulse Oximetry 96 02/10/18 11:15 Results - Laboratory Findings CBC and BMP: 02/10/18 04:14 02/10/18 04:14 ABG ABG pH 7.352 (7.350-7.450) 02/10/18 06:41 ABG pCO2 82 MMHG (34.0-45.0) H* 02/10/18 06:41 ABG pO2 73.0 MMHG (80.0-100.0) L 02/10/18 06:41 ABG O2 Saturation 92.4 % (95.0-98.0) L 02/10/18 06:41 Abnormal lab findings: Abnormal Labs 02/09/18 02/09/18 02/09/18 19:09 19:10 19:10 RBC MCV 102.5 H MCHC 30.2 L RDW Std Deviation 56.3 H Neut % (Auto) 75.0 H Lymph % (Auto) 12.4 L [place] % (Auto) 10.9 H Lymph # (Auto) 0.6 L ABG pCO2 ABG pO2 ABG HCO3 ABG Total CO2 ABG O2 Saturation ABG Base Excess Chloride 88 L Carbon Dioxide 41 H* BUN 18.0 H Creatinine 0.6 L BUN/Creatinine Ratio 30 H AST 37 H NT-Pro-B Natriuret Pep 8910 H Specimen Hemolysis 44 H 02/09/18 02/10/18 02/10/18 19:10 04:14 04:14 RBC 3.97 L MCV 103.3 H MCHC 29.5 L RDW Std Deviation 57.2 H Neut % (Auto) Lymph % (Auto) 22.4 L [place] % (Auto) 12.4 H Lymph # (Auto) ABG pCO2 ABG pO2 ABG HCO3 ABG Total CO2 ABG O2 Saturation ABG Base Excess Chloride 90 L Carbon Dioxide 43 H* BUN 19.0 H Creatinine BUN/Creatinine Ratio 27 H AST NT-Pro-B Natriuret Pep 0 H Specimen Hemolysis 72 H 02/10/18 06:41 RBC MCV MCHC RDW Std Deviation Neut % (Auto) Lymph % (Auto) [place] % (Auto) Lymph # (Auto) ABG pCO2 82 H* ABG pO2 73.0 L ABG HCO3 45.4 H ABG Total CO2 48.0 H ABG O2 Saturation 92.4 L ABG Base Excess 15.8 H Chloride Carbon Dioxide BUN Creatinine BUN/Creatinine Ratio AST NT-Pro-B Natriuret Pep Specimen Hemolysis - Diagnostic Findings Chest x-ray: image reviewed (bilateral pleural effusions, PPM) Assessment and Plan (1) Pleural effusion Status: Acute Assessment and plan: Likely would benefit from gentle diuresis and radiographic followup. Current Visit: Yes (2) Atelectasis Status: Acute Assessment and plan: Recommend adding EZpap with neb treatments. IS q1h wa Current Visit: No (3) Acute and chronic respiratory failure with hypercapnia Status: Acute Assessment and plan: She has recurrent exacerbations of her chronic hypercapnic respiratory failure. I recommend a home vent to mask to improve her hypercapnia, reduced the risk of hospitalization and . Current Visit: Yes - Time Spent With Patient Total time spent is greater than 50% in coordination of care (as documented) at patient's floor/unit and/or counseling patient: 25 - 35 minutes
[2018-02-10] MEDS ORDERED: FUROSEMIDE 20 MG/2 ML INJECTION IVP ONE (17:43)
--- NOTE | 2018-02-10 18:03 | Progress Note ---
- Date 02/10/18 Subjective: Patient seen this afternoon eating supper. She states she is feeling better. She feels like her breathing is almost back to baseline. She denies fever, chills, CP, n/v. No complaints. Looking forward to going back to the [facility]. Objective Vital signs: Temperature 98.7 F 02/10/18 15:17 Pulse Rate 82 02/10/18 15:17 Respiratory Rate 24 02/10/18 15:46 Blood Pressure 123/73 02/10/18 15:17 Pulse Oximetry 99 02/10/18 15:46 Height/Weight/BMI: Height 1.63 m Weight 75 kg Body Mass Index 27.9 - Constitutional Present: no acute distress, well nourished, well developed - Routine HEENT Exam Head: Present: normocephalic, atraumatic - Routine Respiratory Exam Present: decreased breath sounds (b/l bases, upper lung kim are clear). Absent: wheezes - Routine Cardiovascular Exam Present: murmur, irregular rhythm - Routine Abdominal Exam Present: soft, non distended, non tender - Routine Extremities Exam Present: no edema, normal capillary refill - Routine Skin Exam Present: dry, warm - Routine Neurological Exam Present: alert, oriented X3 - Routine Lymphatic Exam Lymphatic: Absent: adenopathy - Routine Psychiatric Exam Present: normal affect, cooperative Results - Labs CBC & Chem 7: 02/10/18 04:14 02/10/18 04:14 Microbiology Results: Microbiology 02/09/18 19:08 Peripheral/Iv Start Blood Culture - Preliminary Culture Initiated - Results Pending 02/09/18 19:07 Peripheral/Iv Start Blood Culture - Preliminary Culture Initiated - Results Pending - ABG Interpretation ABG results: 02/10/18 06:41 ABG pH 7.352 ABG pCO2 82 H* ABG pO2 73.0 L ABG HCO3 45.4 H ABG Total CO2 48.0 H ABG O2 Saturation 92.4 L ABG Base Excess 15.8 H - Imaging and Cardiology modified barium swallow Additional comments: Date of Exam: 02/10/18 Indication:oropharyngeal dysphagia Procedure:FL barium swallow modified MODIFIED BAR. SWALLOW STUDY: Technique: Videofluoroscopy was performed in conjunction with a sales representative metals from speech pathology and a separate report and recommendations will be provided. Varying gradations of barium from thin to solid were administered. Due to the patient's severe kyphotic posture, no AP imaging was obtained. Findings: There was no aspiration noted with any of the consistencies. Impression: No aspiration seen. Please see the speech pathology report for additional details and recommendations. 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 Dr More saw pt and recommends gentle diureses, repeat CXR and home vent. Give Lasix 20mg IV now. CXR and labs in am. Dr. More/SABINE will get the home vent set up. Requiring 5 L 02 (Home requirements=3L). Modified barium swallow performed d/t concern by speech therapy of aspiration. Fortunately no aspiration was seen. Speech rec soft diet and thin liquids. DVT Prophylaxis: SCD's Resuscitation Status: Do Not Resuscitate - Time spent with patient Time with patient PN: 25 minutes - Physician Narrative Physician: Eddie Hinojosa MD Narrative: Date: 02/10/18 Time: 1858 Have independently interviewed and examined pt. Chart reviewed. Case discussed with CM, Dr More, and my PA. Care plan developed with my supervision; agree with above. Feeling much better this evening. Breathing easier-less SOA and congested. No pain with breathing. Appetite fair. No ab pain or nausea. Lungs: decreased bilaterally, basilar blunting. CV: irregular AB: soft nt/nd decreased BS MSE: awake alert appropriate Plan: Continue with Zosyn for coverage. Lasix to help motivate fluid. Pulm looking into home vent as may be very beneficial to patient. Recheck lab and CXR in am. Clinically feeling better. Hospital Course Summary Disclaimer: The visit summary below is not to be considered part of the above Progress Note. Hospital Course: 02/09/18 Admit, IP given her significant hypoxia. She desaturated to 60% on arrival as her portable oxygen ran out enroute. Stay expected to exceed 2 midnights given her acute hypoxic resp failure and comorbidities listed above. CBC, CMP, BNP, lactate, procal, BC x2. Duonebs, acapella and O2 titration to keep sats >90%. On 3L home O2. Start Unasyn for probable aspiration pneumonia. Weight is stable compared to previous dismissal weight. Will hold off on decision to diurese until labs are resulted. I&Os and daily weights. SCD's for DVT ppx. Omeprazole for GI ppx and GERD DNR 02/10/18 Day 2 Zosyn for aspiration PNA coverage. Dr More saw pt and recommends gentle diureses, repeat CXR and home vent. Give Lasix 20mg IV now. Dr. More/ will get the home vent set up. Requiring 5 L 02 (Home requirements=3L). Modified barium swallow performed d/t concern by speech therapy of aspiration. Fortunately no aspiration was seen. Speech rec soft diet and thin liquids.
[2018-02-10] MEDS: ATORVASTATIN 10 MG TABLET PO SCH (20:54)
[2018-02-10] MEDS: ACETAMINOPHEN 500 MG TABLET PO SCH (20:54)
[2018-02-10] MEDS: CETIRIZINE 10 MG TABLET PO SCH (20:56)
[2018-02-10] MEDS: GUAIFENESIN/DM 5ml ORAL LIQUID PO PRN (20:58)
[2018-02-10] MEDS ORDERED: NON-FORMULARY MEDICATION 1 EACH EACH (Cetirizine Hcl [Zyrtec] 10 MG) PO SCH (21:00)
[2018-02-10] MEDS: NS FLUSH BAG 500ml IV PRN (23:55)
[2018-02-11] MEDS: AMPICILLIN/SULBACTAM 3 G in NS 100 ML IV SCH ×3 (05:54→18:19)
[2018-02-11] MEDS: OMEPRAZOLE 20 MG CAPSULE PO SCH (06:06)
[2018-02-11] MEDS: BUDESONIDE INH.SOLN 0.5mg/2ml NEB AEROSOL SCH ×2 (06:34→20:21)
[2018-02-11] MEDS: ALBUTEROL/IPRATROPIUM 2.5mg-0.5mg/3ml NEB AEROSOL SCH ×4 (06:35→20:21)
--- NOTE | 2018-02-11 08:12 | XRay Report ---
INDICATION: F/U edema/infiltrate PROCEDURE: CHEST 2-VIEWS UPRIGHT (PA & LAT) Encounter: Initial COMPARISON: February 09, 2018 FINDINGS: Moderate left and small right pleural effusions with lower lobe airspace disease, not significantly changed in the prior study. No pneumothorax. Cardiac silhouette and mediastinal contours are stable. Left pacemaker. Impression: No significant change. .
[2018-02-11] MEDS: POLYETHYL GLYCOL 3350 17gm PACKET PO SCH (08:53)
[2018-02-11] MEDS: CALCIUM 600 + VIT D 400 TABLET PO SCH ×2 (08:53→22:38)
[2018-02-11] MEDS: TOLTERODINE 2 MG TABLET PO SCH ×2 (08:53→22:39)
[2018-02-11] MEDS: MULTI-VITAMIN + MINERAL TABLET PO SCH (08:53)
[2018-02-11] MEDS: FUROSEMIDE 40 MG TABLET PO SCH (08:53)
[2018-02-11] MEDS: SPIRONOLACTONE 25 MG TABLET PO SCH (08:53)
[2018-02-11] MEDS: LUTEIN 20 MG CAPSULE PO SCH (08:53)
--- NOTE | 2018-02-11 09:48 | Pulmonology Progress Note ---
Subjective Interval history: Pt resting in bed, wakes to voice. States still has SOB but is better, still with cough and white sputum. Tolerated bipap last noc, using O2 at 4L per NC. Exam Vital signs: Temperature 97.5 F 02/11/18 07:38 Pulse Rate 84 02/11/18 07:38 Respiratory Rate 20 02/11/18 07:38 Blood Pressure 145/67 H 02/11/18 07:38 Pulse Oximetry 94 02/11/18 07:38 Inpatient Medications: Generic Name Dose Route Start Last Admin Trade Name Freq PRN Reason Stop Dose Admin Acetaminophen 650 mg 02/09/18 22:22 Tylenol PO QID PRN Discomfort Acetaminophen 1,000 mg 02/10/18 21:00 02/10/18 20:54 Tylenol PO 1,000 mg HS BANDAR Administration Acetaminophen 500 - 1,000 mg 02/09/18 23:08 Tylenol PO BID PRN Pain Hydrocodone Bitart/Acetaminophen 1 tab 02/09/18 23:08 Dolores 5/325 PO Q6HR PRN Pain Al Hydroxide/Mg Hydroxide 30 ml 02/10/18 06:55 Maalox Plus PO Q4H PRN Indigestion Albuterol/Ipratropium 3 ml 02/09/18 17:29 02/09/18 17:29 Duoneb AEROSOL 3 ml RTQID PRN Administration Albuterol/Ipratropium 3 ml 02/09/18 19:00 02/11/18 06:35 Duoneb AEROSOL 3 ml RTQID BANDAR Administration Aspirin 81 mg 02/10/18 12:00 02/10/18 12:21 Ecotrin PO 81 mg NOON BANDAR Administration Atorvastatin Calcium 10 mg 02/10/18 21:00 02/10/18 20:54 Lipitor PO 10 mg HS BANDAR Administration Budesonide 0.5 mg 02/09/18 21:00 02/11/18 06:34 Pulmicort Inhalation AEROSOL 0.5 mg BID BANDAR Administration Calcium/Vitamin D 1 tab 02/10/18 09:00 02/11/18 08:53 Caltrate + D PO 1 tab BID BANDAR Administration Cetirizine HCl 10 mg 02/10/18 21:00 02/10/18 20:56 Zyrtec PO 10 mg HS BANDAR Administration Cholecalciferol 2,000 unit 02/10/18 09:00 02/11/18 08:54 Vit. D-3 PO 2,000 unit DAILY BANDAR Administration Furosemide 40 mg 02/10/18 09:00 02/11/18 08:53 Lasix 40 Mg Tab PO 40 mg DAILY BANDAR Administration Guaifenesin/Dextromethorphan 10 ml 02/09/18 22:20 02/10/18 20:58 Robitussin Dm PO 10 ml Q4-6HR PRN Administration Cough /Congestion Ampicillin Sodium/Sulbactam 100 mls @ 200 mls/hr 02/09/18 18:00 02/11/18 06: 25 Sodium 3 g/ Sodium Chloride IV Infused Q6H BANDAR Infusion Lorazepam 0.5 mg 02/09/18 22:20 Ativan PO HS PRN Anxiety Lutein 20 mg 02/10/18 09:00 02/11/18 08:53 PO 20 mg DAILY BANDAR Administration Magnesium Hydroxide 15 - 30 ml 02/09/18 23:08 Mom PO DAILY PRN Constipation Menthol 1 lozenge 02/10/18 06:57 Ricola Sf MM Q2H PRN Cough Multivitamins/Minerals 1 tab 02/10/18 09:00 02/11/18 08:53 Therapeutic - M PO 1 tab DAILY BANDAR Administration Omeprazole 40 mg 02/10/18 06:30 02/11/18 06:06 Prilosec PO 40 mg ACB BANDAR Administration Ondansetron HCl 4 mg 02/09/18 23:08 Zofran Po PO Q8H PRN Nausea Polyethylene Glycol 17 gm 02/10/18 09:00 02/11/18 08:53 Miralax PO 17 gm DAILY BANDAR Administration Sodium Chloride 500 ml 02/10/18 23:53 02/10/18 23:55 Normal Saline IV 500 ml PRN PRN Administration Spironolactone 25 mg 02/10/18 09:00 02/11/18 08:53 Aldactone 25 Mg PO 25 mg DAILY BANDAR Administration Tolterodine Tartrate 1 mg 02/10/18 09:00 02/11/18 08:53 Detrol PO 1 mg BID BANDAR Administration Discontinued Medications Generic Name Dose Route Start Last Admin Trade Name Freq PRN Reason Stop Dose Admin Acetazolamide 250 mg 02/10/18 08:00 02/10/18 09:50 Diamox 250 Mg PO 02/10/18 08:01 250 mg O ONE Administration Albuterol/Ipratropium 3 ml 02/09/18 19:00 Duoneb AEROSOL RTQID PRN Furosemide 40 mg 02/10/18 09:00 Lasix 40 Mg Tab PO DAILY BANDAR Furosemide 20 mg 02/10/18 17:43 02/10/18 18:44 Lasix 20 Mg/2 Ml IVP 02/10/18 17:44 20 mg O ONE Administration Guaifenesin/Dextromethorphan 10 ml 02/09/18 23:08 Robitussin Dm PO Q6H PRN PRN orders Lorazepam 0.5 mg 02/09/18 23:08 Ativan PO HS PRN anxiety Non-Formulary Medication 1 tab 02/10/18 09:00 Calcium Carb/Vitamin D3/Vit K1 [Viactiv Soft Chew] PO BID BANDAR Non-Formulary Medication 10 mg 02/10/18 21:00 Cetirizine Hcl [Zyrtec] PO HS BANDAR Non-Formulary Medication 2,000 mg 02/10/18 09:00 Cholecalciferol (Vitamin D3) [Vitamin D3] PO DAILY BANDAR Non-Formulary Medication 1 lozenge 02/09/18 23:08 Dextromethorphan Hbr/B-Jhonny [Cepacol Sorethroat-Cough Angela] PO Q2HR PRN Sore throat Non-Formulary Medication 20 mg 02/10/18 09:00 Lutein [Lutein] PO DAILY BANDAR Non-Formulary Medication 30 ml 02/09/18 23:08 Mag Hydrox/Aluminum Hyd/Simeth [Alum-Mag Hydroxide-Simeth Liq] PO Q4H PRN Epigastric distress Non-Formulary Medication 1 tab 02/10/18 12:00 Multivitamin [One Daily Multivitamin] PO NOON BANDAR Non-Formulary Medication 40 mg 02/10/18 06:30 Omeprazole [Omeprazole] PO ACB BANDAR Non-Formulary Medication 1 mg 02/10/18 09:00 Tolterodine Tartrate [Detrol] PO BID BANDAR Spironolactone 25 mg 02/10/18 09:00 Aldactone 25 Mg PO DAILY BANDAR - Constitutional no acute distress, obese, cooperative - Routine HEENT Exam Head: Present: normocephalic, atraumatic Eye: Present: EOMI, PERRL ENT: Present: mucous membranes moist - Routine Neck Exam Present: supple, full ROM, trachea midline - Routine Respiratory Exam Present: decreased breath sounds, crackles. Absent: accessory muscle use, patient mechanically ventilated - Routine Cardiovascular Exam Present: RRR, S1, S2, murmur - Routine Abdominal Exam Present: soft, normoactive bowel sounds - Routine Extremities Exam Present: edema, non tender, full ROM. Absent: cyanosis, clubbing - Routine Back/Spine/Pelvis Exam Back/Spine: Present: full ROM - Routine Skin Exam Present: intact, cyanosis, dry - Routine Neurological Exam Present: alert, oriented X3, CN II-XII intact - Routine Psychiatric Exam Present: normal affect, normal thought process Results - Laboratory Findings Laboratory: Laboratory Results - last 48 hr 02/09/18 02/09/18 02/09/18 19:09 19:10 19:10 WBC 4.7 RBC 4.07 Hgb 12.6 Hct 41.7 MCV 102.5 H MCH 31.0 MCHC 30.2 L RDW Std Deviation 56.3 H Plt Count 150 MPV 10.2 Immature Gran % (Auto) 0.2 Neut % (Auto) 75.0 H Lymph % (Auto) 12.4 L [place] % (Auto) 10.9 H Eos % (Auto) 1.3 Baso % (Auto) 0.2 Neut # (Auto) 3.5 Lymph # (Auto) 0.6 L [place] # (Auto) 0.5 Eos # (Auto) 0.1 Baso # (Auto) 0.0 Abs Immat Gran (auto) 0.01 Neutrophils % (Manual) Band Neutrophils % Lymphocytes % (Manual) Monocytes % (Manual) Eosinophils % (Manual) Neutrophils # (Manual) Band Neutrophils # Lymphocytes # (Manual) Monocytes # (Manual) Eosinophils # (Manual) Hypochromasia Anisocytosis RBC Morph Comment Sample Site ABG pH ABG pCO2 ABG pO2 ABG HCO3 ABG Total CO2 ABG O2 Saturation ABG Base Excess Modified Chidi Test O2 Delivery Method FiO2 (liters per min) Turbidity < 20 Sodium 137 Potassium 4.4 Chloride 88 L Carbon Dioxide 41 H* Anion Gap 8 BUN 18.0 H Creatinine 0.6 L Estimated Creat Clear 38 GFR Calculation 94 BUN/Creatinine Ratio 30 H Glucose 107 Calculated Osmolality 266 Calcium 9.1 Magnesium Total Bilirubin 0.90 Icterus Index < 2 AST 37 H ALT 24 Alkaline Phosphatase 68 Troponin I 0.025 NT-Pro-B Natriuret Pep 8910 H Total Protein 6.3 Albumin 3.6 Globulin 2.7 Albumin/Globulin Ratio 1.3 Plasma Lactate 0.9 Procalcitonin Specimen Hemolysis 44 H < 15 02/09/18 02/09/18 02/10/18 19:10 19:10 04:14 WBC 4.5 RBC 3.97 L Hgb 12.1 Hct 41.0 MCV 103.3 H MCH 30.5 MCHC 29.5 L RDW Std Deviation 57.2 H Plt Count 155 MPV 10.3 Immature Gran % (Auto) 0.4 Neut % (Auto) 62.8 Lymph % (Auto) 22.4 L [place] % (Auto) 12.4 H Eos % (Auto) 1.8 Baso % (Auto) 0.2 Neut # (Auto) 2.8 Lymph # (Auto) 1.0 [place] # (Auto) 0.6 Eos # (Auto) 0.1 Baso # (Auto) 0.0 Abs Immat Gran (auto) 0.02 Neutrophils % (Manual) Band Neutrophils % Lymphocytes % (Manual) Monocytes % (Manual) Eosinophils % (Manual) Neutrophils # (Manual) Band Neutrophils # Lymphocytes # (Manual) Monocytes # (Manual) Eosinophils # (Manual) Hypochromasia Anisocytosis RBC Morph Comment Sample Site ABG pH ABG pCO2 ABG pO2 ABG HCO3 ABG Total CO2 ABG O2 Saturation ABG Base Excess Modified Chidi Test O2 Delivery Method FiO2 (liters per min) Turbidity Sodium Potassium Chloride Carbon Dioxide Anion Gap BUN Creatinine Estimated Creat Clear GFR Calculation BUN/Creatinine Ratio Glucose Calculated Osmolality Calcium Magnesium Total Bilirubin Icterus Index AST ALT Alkaline Phosphatase Troponin I 0.041 D NT-Pro-B Natriuret Pep 2070 H Total Protein Albumin Globulin Albumin/Globulin Ratio Plasma Lactate Procalcitonin < 0.05 Specimen Hemolysis 72 H 02/10/18 02/10/18 02/11/18 04:14 06:41 04:21 WBC 4.5 RBC 3.99 L Hgb 12.2 Hct 40.5 MCV 101.5 H MCH 30.6 MCHC 30.1 L RDW Std Deviation 55.7 H Plt Count 163 MPV 10.6 Immature Gran % (Auto) Not performed Neut % (Auto) Not performed Lymph % (Auto) Not performed [place] % (Auto) Not performed Eos % (Auto) Not performed Baso % (Auto) Not performed Neut # (Auto) Not performed Lymph # (Auto) Not performed [place] # (Auto) Not performed Eos # (Auto) Not performed Baso # (Auto) Not performed Abs Immat Gran (auto) Not performed Neutrophils % (Manual) 62.0 Band Neutrophils % 1.0 Lymphocytes % (Manual) 28.0 Monocytes % (Manual) 7.0 Eosinophils % (Manual) 2.0 Neutrophils # (Manual) 2.8 Band Neutrophils # 0.0 Lymphocytes # (Manual) 1.3 Monocytes # (Manual) 0.3 Eosinophils # (Manual) 0.1 Hypochromasia 1+ Anisocytosis 1+ RBC Morph Comment Abnormal Sample Site L radial ABG pH 7.352 ABG pCO2 82 H* ABG pO2 73.0 L ABG HCO3 45.4 H ABG Total CO2 48.0 H ABG O2 Saturation 92.4 L ABG Base Excess 15.8 H Modified Chidi Test Positive O2 Delivery Method Cannula FiO2 (liters per min) 5 Turbidity < 20 Sodium 140 Potassium 4.0 Chloride 90 L Carbon Dioxide 43 H* Anion Gap 7 BUN 19.0 H Creatinine 0.7 Estimated Creat Clear 38 GFR Calculation 79 BUN/Creatinine Ratio 27 H Glucose 98 Calculated Osmolality 271 Calcium 9.0 Magnesium Total Bilirubin Icterus Index < 2 AST ALT Alkaline Phosphatase Troponin I NT-Pro-B Natriuret Pep Total Protein Albumin Globulin Albumin/Globulin Ratio Plasma Lactate Procalcitonin Specimen Hemolysis < 15 02/11/18 04:21 WBC RBC Hgb Hct MCV MCH MCHC RDW Std Deviation Plt Count MPV Immature Gran % (Auto) Neut % (Auto) Lymph % (Auto) [place] % (Auto) Eos % (Auto) Baso % (Auto) Neut # (Auto) Lymph # (Auto) [place] # (Auto) Eos # (Auto) Baso # (Auto) Abs Immat Gran (auto) Neutrophils % (Manual) Band Neutrophils % Lymphocytes % (Manual) Monocytes % (Manual) Eosinophils % (Manual) Neutrophils # (Manual) Band Neutrophils # Lymphocytes # (Manual) Monocytes # (Manual) Eosinophils # (Manual) Hypochromasia Anisocytosis RBC Morph Comment Sample Site ABG pH ABG pCO2 ABG pO2 ABG HCO3 ABG Total CO2 ABG O2 Saturation ABG Base Excess Modified Chidi Test O2 Delivery Method FiO2 (liters per min) Turbidity < 20 Sodium 141 Potassium 3.4 L Chloride 92 L Carbon Dioxide 40 H Anion Gap 9 BUN 18.0 H Creatinine 0.8 Estimated Creat Clear 38 GFR Calculation 68 BUN/Creatinine Ratio 23 Glucose 91 Calculated Osmolality 273 Calcium 8.9 Magnesium 2.1 Total Bilirubin 0.60 Icterus Index < 2 AST 34 ALT 23 Alkaline Phosphatase 60 Troponin I NT-Pro-B Natriuret Pep Total Protein 5.7 L Albumin 3.3 L Globulin 2.4 Albumin/Globulin Ratio 1.4 Plasma Lactate Procalcitonin Specimen Hemolysis 20 - Diagnostic Findings Chest x-ray: image reviewed (still with bibasilar infiltrates with bilat effusions) Assessment and Plan (1) Acute on chronic respiratory failure with hypoxemia Status: Chronic Current Visit: No (2) Atelectasis Status: Acute Current Visit: No (3) Pleural effusion Status: Acute Current Visit: Yes (4) CHF (congestive heart failure) Status: Chronic Current Visit: No - Assessment and Plan Plan: Pt currently on O2 at 4L per NC, sherry Bipap 14, 15/5, 40% at noc, CXR still with bilateral effusions and atelectasis. Continue on diuresis per primary on lasix 40mg daily and aldactone 25mg, Cr 0.8. Monitor I/O and CXR. Continue BT's with pulmicort BID, A/A QID with acapella. Chronic Respiratory Failure with ABG 7.32/ 82/73, would recommend home vent to mask for treatment and decrease her risk of hospitalization and . . - Time Spent With Patient Total time spent is greater than 50% in coordination of care (as documented) at patient's floor/unit and/or counseling patient: less than 15 minutes
--- NOTE | 2018-02-11 10:53 | Progress Note ---
- Date 02/11/18 Subjective: F/U: Acute (on chronic) hypoxic respiratory failure, Probable aspiration pneumonia Doing okay this morning-breathing improving, but still has congestion to chest. Did tolerate BiPAP well last night-slept well with the device. Eating well-no nausea or ab pain. Not feeling sore in mouth. No f/c. Strength fair. Increased urine output with Lasix last night. Objective Vital signs: Temperature 97.5 F 02/11/18 07:38 Pulse Rate 84 02/11/18 07:38 Respiratory Rate 20 02/11/18 10:23 Blood Pressure 145/67 H 02/11/18 07:38 Pulse Oximetry 93 02/11/18 10:23 Height/Weight/BMI: Height 1.63 m Weight 74 kg Body Mass Index 27.9 - Constitutional Present: well nourished, well developed, cooperative - Routine HEENT Exam Head: Present: normocephalic, atraumatic Eye: Present: EOMI, PERRL, normal accommodation ENT: Present: mucous membranes moist (No thrush) - Routine Respiratory Exam Present: decreased breath sounds (Basilar blunting), crackles, distant breath sounds, diminished air movement - Routine Cardiovascular Exam Present: RRR - Routine Abdominal Exam Present: soft, normoactive bowel sounds, non distended, non tender - Routine Extremities Exam Present: no edema, pulses intact. Absent: cyanosis, clubbing Comments: SCD present - Routine Musculoskeletal Exam Musculoskeletal: Present: no clubbing or cyanosis - Routine Skin Exam Present: dry - Routine Neurological Exam Present: alert, oriented X3, CN II-XII intact, moving all extremities, vision grossly intact, hearing grossly intact, normal speech. Absent: motor deficit, altered mental status - Routine Psychiatric Exam Present: normal affect, normal thought process, cooperative Results - Labs CBC & Chem 7: 02/11/18 04:21 02/11/18 04:21 Microbiology Results: Microbiology 02/10/18 21:10 Sputum, Expectorated Gram Stain - Final 02/10/18 21:10 Sputum, Expectorated Sputum Culture - Final 02/09/18 19:08 Peripheral/Iv Start Blood Culture - Preliminary No Growth After 1 Day 02/09/18 19:07 Peripheral/Iv Start Blood Culture - Preliminary No Growth After 1 Day - ABG Interpretation ABG results: 02/10/18 06:41 ABG pH 7.352 ABG pCO2 82 H* ABG pO2 73.0 L ABG HCO3 45.4 H ABG Total CO2 48.0 H ABG O2 Saturation 92.4 L ABG Base Excess 15.8 H Assessment and Plan (1) Acute on chronic respiratory failure with hypoxemia Current visit: No Status: Chronic (2) Chronic hypercapnic respiratory failure Current visit: Yes Status: Acute Assessment and Plan: Assessment Acute (on chronic) hypoxic respiratory failure Probable aspiration pneumonia Pleural effusions - Moderate left and small right CHF - acute on chronic diastolic/valvular Chronic hypercarbic respiratory failure with elevated HCO3 COPD with chronic hypoxia 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 Will continue with Lasix 20mg IV daily to help motivate fluid - CXR this am showing little change. Replace potassium - with give 20mEg x1 today, continuing 20mEq with breakfast tomorrow. Tolerated BiPAP well last night - pulm working on outpatient vent for patient. Encourage therapy to improve functional status. Recheck BMP and Mg in am due to diuretic use. Will recheck CBC in am due to pneumonia. Case discuss with CM, pulm, and family. Time spent with patient care 25 minutes. DVT Prophylaxis: SCD's Resuscitation Status: Do Not Resuscitate - Time spent with patient Time with patient PN: 25 minutes - Physician Narrative Physician: Eddie Hinojosa MD Narrative: Date: 02/11/18 Time: 1050 Hospital Course Summary Disclaimer: The visit summary below is not to be considered part of the above Progress Note. Hospital Course: 02/09/18 Admit, IP given her significant hypoxia. She desaturated to 60% on arrival as her portable oxygen ran out enroute. Stay expected to exceed 2 midnights given her acute hypoxic resp failure and comorbidities listed above. CBC, CMP, BNP, lactate, procal, BC x2. DuoNeb, acapella and O2 titration to keep sats >90%. On 3L home O2. Start Unasyn for probable aspiration pneumonia. Weight is stable compared to previous dismissal weight. Will hold off on decision to diurese until labs are resulted. I&Os and daily weights. SCD's for DVT ppx. Omeprazole for GI ppx and GERD DNR 02/10/18 Day 2 Zosyn for aspiration PNA coverage. Dr More saw pt and recommends gentle diureses, repeat CXR and home vent. Give Lasix 20mg IV now. Dr. More/SABINE will get the home vent set up. Requiring 5 L 02 (Home requirements=3L). Modified barium swallow performed d/t concern by speech therapy of aspiration. Fortunately no aspiration was seen. Speech rec soft diet and thin liquids. 02/11/18 Continue with Zosyn for aspiration coverage - Day 3. Will continue with Lasix 20mg IV daily to help motivate fluid - CXR this am showing little change. Replace potassium - with give 20mEg x1 today, continuing 20mEq with breakfast tomorrow. Tolerated BiPAP well last night - kathi working on outpatient vent for patient. Encourage therapy to improve functional status.
[2018-02-11] MEDS: FUROSEMIDE 20 MG/2 ML INJECTION IVP SCH (12:36)
[2018-02-11] MEDS: ASPIRIN *EC* 81 MG TABLET PO SCH (12:37)
[2018-02-11] MEDS: ACETAMINOPHEN 500 MG TABLET PO SCH (22:37)
[2018-02-11] MEDS: ATORVASTATIN 10 MG TABLET PO SCH (22:38)
[2018-02-11] MEDS: CETIRIZINE 10 MG TABLET PO SCH (22:38)
[2018-02-12] MEDS: AMPICILLIN/SULBACTAM 3 G in NS 100 ML IV SCH ×5 (00:13→23:47)
[2018-02-12] MEDS: OMEPRAZOLE 20 MG CAPSULE PO SCH (05:50)
[2018-02-12] MEDS: BUDESONIDE INH.SOLN 0.5mg/2ml NEB AEROSOL SCH ×2 (08:01→21:31)
[2018-02-12] MEDS: ALBUTEROL/IPRATROPIUM 2.5mg-0.5mg/3ml NEB AEROSOL SCH ×4 (08:01→21:31)
[2018-02-12] MEDS: SPIRONOLACTONE 25 MG TABLET PO SCH (09:03)
[2018-02-12] MEDS: CALCIUM 600 + VIT D 400 TABLET PO SCH ×2 (09:03→21:25)
[2018-02-12] MEDS: MULTI-VITAMIN + MINERAL TABLET PO SCH (09:03)
[2018-02-12] MEDS: TOLTERODINE 2 MG TABLET PO SCH ×2 (09:03→21:23)
[2018-02-12] MEDS: LUTEIN 20 MG CAPSULE PO SCH (09:03)
[2018-02-12] MEDS: POLYETHYL GLYCOL 3350 17gm PACKET PO SCH (09:04)
[2018-02-12] MEDS: FUROSEMIDE 40 MG TABLET PO SCH (09:10)
[2018-02-12] MEDS: FUROSEMIDE 20 MG/2 ML INJECTION IVP SCH (09:21)
--- NOTE | 2018-02-12 09:43 | Pulmonology Progress Note ---
Subjective Interval history: Patient is up eating. No distress, no coughing. on nasal cannula O2. Wore bipap ST last night with no complaints. Exam Vital signs: Temperature 97.5 F 02/12/18 07:56 Pulse Rate 77 02/12/18 07:56 Respiratory Rate 20 02/12/18 08:01 Blood Pressure 148/67 H 02/12/18 07:56 Pulse Oximetry 94 02/12/18 08:01 Inpatient Medications: Generic Name Dose Route Start Last Admin Trade Name Freq PRN Reason Stop Dose Admin Acetaminophen 650 mg 02/09/18 22:22 Tylenol PO QID PRN Discomfort Acetaminophen 1,000 mg 02/10/18 21:00 02/11/18 22:37 Tylenol PO 1,000 mg HS BANDAR Administration Acetaminophen 500 - 1,000 mg 02/09/18 23:08 Tylenol PO BID PRN Pain Hydrocodone Bitart/Acetaminophen 1 tab 02/09/18 23:08 [place] 5/325 PO Q6HR PRN Pain Al Hydroxide/Mg Hydroxide 30 ml 02/10/18 06:55 Maalox Plus PO Q4H PRN Indigestion Albuterol/Ipratropium 3 ml 02/09/18 17:29 02/09/18 17:29 Duoneb AEROSOL 3 ml RTQID PRN Administration Albuterol/Ipratropium 3 ml 02/09/18 19:00 02/12/18 08:01 Duoneb AEROSOL 3 ml RTQID BANDAR Administration Aspirin 81 mg 02/10/18 12:00 02/11/18 12:37 Ecotrin PO 81 mg NOON BANDAR Administration Atorvastatin Calcium 10 mg 02/10/18 21:00 02/11/18 22:38 Lipitor PO 10 mg HS BANDAR Administration Budesonide 0.5 mg 02/09/18 21:00 02/12/18 08:01 Pulmicort Inhalation AEROSOL 0.5 mg BID BANDAR Administration Calcium/Vitamin D 1 tab 02/10/18 09:00 02/12/18 09:03 Caltrate + D PO 1 tab BID BANDAR Administration Cetirizine HCl 10 mg 02/10/18 21:00 02/11/18 22:38 Zyrtec PO 10 mg HS BANDAR Administration Cholecalciferol 2,000 unit 02/10/18 09:00 02/12/18 09:10 Vit. D-3 PO 2,000 unit DAILY BANDAR Administration Furosemide 40 mg 02/10/18 09:00 02/12/18 09:10 Lasix 40 Mg Tab PO 40 mg DAILY BANDAR Administration Furosemide 20 mg 02/11/18 11:00 02/12/18 09:21 Lasix 20 Mg/2 Ml IVP Not Given DAILY BANDAR Guaifenesin/Dextromethorphan 10 ml 02/09/18 22:20 02/10/18 20:58 Robitussin Dm PO 10 ml Q4-6HR PRN Administration Cough /Congestion Ampicillin Sodium/Sulbactam 100 mls @ 200 mls/hr 02/09/18 18:00 02/12/18 06: 25 Sodium 3 g/ Sodium Chloride IV Infused Q6H BANDAR Infusion Lorazepam 0.5 mg 02/09/18 22:20 Ativan PO HS PRN Anxiety Lutein 20 mg 02/10/18 09:00 02/12/18 09:03 PO 20 mg DAILY BANDAR Administration Magnesium Hydroxide 15 - 30 ml 02/09/18 23:08 Mom PO DAILY PRN Constipation Menthol 1 lozenge 02/10/18 06:57 Ricola Sf MM Q2H PRN Cough Multivitamins/Minerals 1 tab 02/10/18 09:00 02/12/18 09:03 Therapeutic - M PO 1 tab DAILY BANDAR Administration Omeprazole 40 mg 02/10/18 06:30 02/12/18 05:50 Prilosec PO 40 mg ACB BANDAR Administration Ondansetron HCl 4 mg 02/09/18 23:08 Zofran Po PO Q8H PRN Nausea Polyethylene Glycol 17 gm 02/10/18 09:00 02/12/18 09:04 Miralax PO 17 gm DAILY BANDAR Administration Potassium Chloride 20 meq 02/12/18 08:00 02/12/18 09:10 Micro-K 10 Meq Capsule PO 20 meq WB BANDAR Administration Sodium Chloride 500 ml 02/10/18 23:53 02/10/18 23:55 Normal Saline IV 500 ml PRN PRN Administration Spironolactone 25 mg 02/10/18 09:00 02/12/18 09:03 Aldactone 25 Mg PO 25 mg DAILY BANDAR Administration Tolterodine Tartrate 1 mg 02/10/18 09:00 02/12/18 09:03 Detrol PO 1 mg BID BANDAR Administration Discontinued Medications Generic Name Dose Route Start Last Admin Trade Name Freq PRN Reason Stop Dose Admin Acetazolamide 250 mg 02/10/18 08:00 02/10/18 09:50 Diamox 250 Mg PO 02/10/18 08:01 250 mg O ONE Administration Albuterol/Ipratropium 3 ml 02/09/18 19:00 Duoneb AEROSOL RTQID PRN Furosemide 40 mg 02/10/18 09:00 Lasix 40 Mg Tab PO DAILY BANDAR Furosemide 20 mg 02/10/18 17:43 02/10/18 18:44 Lasix 20 Mg/2 Ml IVP 02/10/18 17:44 20 mg O ONE Administration Guaifenesin/Dextromethorphan 10 ml 02/09/18 23:08 Robitussin Dm PO Q6H PRN PRN orders Lorazepam 0.5 mg 02/09/18 23:08 Ativan PO HS PRN anxiety Non-Formulary Medication 1 tab 02/10/18 09:00 Calcium Carb/Vitamin D3/Vit K1 [Viactiv Soft Chew] PO BID BANDAR Non-Formulary Medication 10 mg 02/10/18 21:00 Cetirizine Hcl [Zyrtec] PO HS BANDAR Non-Formulary Medication 2,000 mg 02/10/18 09:00 Cholecalciferol (Vitamin D3) [Vitamin D3] PO DAILY BANDAR Non-Formulary Medication 1 lozenge 02/09/18 23:08 Dextromethorphan Hbr/B-Jhonny [Cepacol Sorethroat-Cough Angela] PO Q2HR PRN Sore throat Non-Formulary Medication 20 mg 02/10/18 09:00 Lutein [Lutein] PO DAILY BANDAR Non-Formulary Medication 30 ml 02/09/18 23:08 Mag Hydrox/Aluminum Hyd/Simeth [Alum-Mag Hydroxide-Simeth Liq] PO Q4H PRN Epigastric distress Non-Formulary Medication 1 tab 02/10/18 12:00 Multivitamin [One Daily Multivitamin] PO NOON BANDAR Non-Formulary Medication 40 mg 02/10/18 06:30 Omeprazole [Omeprazole] PO ACB BANDAR Non-Formulary Medication 1 mg 02/10/18 09:00 Tolterodine Tartrate [Detrol] PO BID BADNAR Potassium Chloride 20 meq 02/11/18 12:30 02/11/18 12:37 Micro-K 10 Meq Capsule PO 02/11/18 12:31 20 meq O ONE Administration Potassium Chloride 20 meq 02/11/18 17:30 02/11/18 18:16 Micro-K 10 Meq Capsule PO 02/11/18 17:31 20 meq O ONE Administration Spironolactone 25 mg 02/10/18 09:00 Aldactone 25 Mg PO DAILY BANDAR - Constitutional no acute distress - Routine HEENT Exam Head: Present: normocephalic, atraumatic - Routine Neck Exam Present: supple - Routine Respiratory Exam Present: decreased breath sounds. Absent: accessory muscle use, respiratory distress - Routine Cardiovascular Exam Present: RRR - Routine Abdominal Exam Present: soft. Absent: guarding - Routine Back/Spine/Pelvis Exam Back/Spine: Present: kyphosis Results - Laboratory Findings Laboratory: Laboratory Results - last 48 hr 02/11/18 02/11/18 02/12/18 04:21 04:21 03:52 WBC 4.5 4.8 RBC 3.99 L 3.92 L Hgb 12.2 11.9 L Hct 40.5 39.8 MCV 101.5 H 101.5 H MCH 30.6 30.4 MCHC 30.1 L 29.9 L RDW Std Deviation 55.7 H 55.8 H Plt Count 163 163 MPV 10.6 10.2 Immature Gran % (Auto) Not performed 0.4 Neut % (Auto) Not performed 58.3 Lymph % (Auto) Not performed 28.0 [place] % (Auto) Not performed 10.6 H Eos % (Auto) Not performed 2.5 Baso % (Auto) Not performed 0.2 Neut # (Auto) Not performed 2.8 Lymph # (Auto) Not performed 1.3 [place] # (Auto) Not performed 0.5 Eos # (Auto) Not performed 0.1 Baso # (Auto) Not performed 0.0 Abs Immat Gran (auto) Not performed 0.02 Neutrophils % (Manual) 62.0 Band Neutrophils % 1.0 Lymphocytes % (Manual) 28.0 Monocytes % (Manual) 7.0 Eosinophils % (Manual) 2.0 Neutrophils # (Manual) 2.8 Band Neutrophils # 0.0 Lymphocytes # (Manual) 1.3 Monocytes # (Manual) 0.3 Eosinophils # (Manual) 0.1 Hypochromasia 1+ Anisocytosis 1+ RBC Morph Comment Abnormal Turbidity < 20 Sodium 141 Potassium 3.4 L Chloride 92 L Carbon Dioxide 40 H Anion Gap 9 BUN 18.0 H Creatinine 0.8 Estimated Creat Clear 38 GFR Calculation 68 BUN/Creatinine Ratio 23 Glucose 91 Calculated Osmolality 273 Calcium 8.9 Magnesium 2.1 Total Bilirubin 0.60 Icterus Index < 2 AST 34 ALT 23 Alkaline Phosphatase 60 Total Protein 5.7 L Albumin 3.3 L Globulin 2.4 Albumin/Globulin Ratio 1.4 Specimen Hemolysis 02/12/18 03:52 WBC RBC Hgb Hct MCV MCH MCHC RDW Std Deviation Plt Count MPV Immature Gran % (Auto) Neut % (Auto) Lymph % (Auto) [place] % (Auto) Eos % (Auto) Baso % (Auto) Neut # (Auto) Lymph # (Auto) [place] # (Auto) Eos # (Auto) Baso # (Auto) Abs Immat Gran (auto) Neutrophils % (Manual) Band Neutrophils % Lymphocytes % (Manual) Monocytes % (Manual) Eosinophils % (Manual) Neutrophils # (Manual) Band Neutrophils # Lymphocytes # (Manual) Monocytes # (Manual) Eosinophils # (Manual) Hypochromasia Anisocytosis RBC Morph Comment Turbidity < 20 Sodium 141 Potassium 3.9 Chloride 94 L Carbon Dioxide 39 H Anion Gap 8 BUN 22.0 H Creatinine 0.8 Estimated Creat Clear 38 GFR Calculation 68 BUN/Creatinine Ratio 28 H Glucose 110 Calculated Osmolality 275 Calcium 9.2 Magnesium 2.3 Total Bilirubin Icterus Index < 2 AST ALT Alkaline Phosphatase Total Protein Albumin Globulin Albumin/Globulin Ratio Specimen Hemolysis < 15 Assessment and Plan (1) Pleural effusion Status: Acute Assessment and plan: acute on chronic effusions. repeat CXR Wednesday Current Visit: Yes (2) Atelectasis Status: Acute Assessment and plan: Recommend adding EZpap with neb treatments. IS q1h wa Current Visit: No (3) Acute and chronic respiratory failure with hypercapnia Status: Acute Assessment and plan: She has recurrent exacerbations of her chronic hypercapnic respiratory failure. I recommend a home vent to mask to improve her hypercapnia, reduced the risk of hospitalization and . Currently tolerating BIPAP ST 15/5, rate 14, Fio2 40%. Current Visit: Yes - Time Spent With Patient Total time spent is greater than 50% in coordination of care (as documented) at patient's floor/unit and/or counseling patient: less than 15 minutes
[2018-02-12] MEDS: ASPIRIN *EC* 81 MG TABLET PO SCH (11:49)
[2018-02-12] MEDS: NS FLUSH BAG 500ml IV PRN (12:00)
[2018-02-12] MEDS ORDERED: NS FLUSH BAG 500ml IV PRN (12:47)
--- NOTE | 2018-02-12 13:36 | Progress Note ---
- Date 02/12/18 Subjective: F/U: Acute on chronic hypoxic/hypercapnic respiratory failure, Probable aspiration pneumonia Doing about the same. Breathing slightly better. Notes some cough, not making sputum. No pain with breathing (indeed, denies any pains). Tolerating BiPAP at night. Up in chair most of the morning. Has ambulated some in room. Strength fair. Eating well. Denies mouth pain. No nausea or ab pain. Feels bowels moving well. No f/c. Objective Vital signs: Temperature 97.5 F 02/12/18 07:56 Pulse Rate 77 02/12/18 07:56 Respiratory Rate 20 02/12/18 12:12 Blood Pressure 148/67 H 02/12/18 07:56 Pulse Oximetry 94 02/12/18 12:12 Height/Weight/BMI: Height 1.63 m Weight 76.1 kg Body Mass Index 27.9 - Constitutional Present: well nourished, well developed, average body habitus, cooperative - Routine HEENT Exam Head: Present: normocephalic, atraumatic Eye: Present: EOMI, PERRL, normal accommodation ENT: Present: mucous membranes moist - Routine Respiratory Exam Present: decreased breath sounds (Basilar bluniting), distant breath sounds, diminished air movement. Absent: respiratory distress, rhonchi, wheezes - Routine Cardiovascular Exam Present: RRR, no murmur - Routine Abdominal Exam Present: soft, non distended, non tender. Absent: normoactive bowel sounds ( decreased) - Routine Extremities Exam Present: edema (+1 BLE), pulses intact. Absent: cyanosis, clubbing Comments: SCD present - Routine Musculoskeletal Exam Musculoskeletal: Present: no clubbing or cyanosis - Routine Skin Exam Present: dry, warm - Routine Neurological Exam Present: alert, oriented X3, CN II-XII intact, moving all extremities, vision grossly intact, hearing grossly intact, normal speech. Absent: motor deficit, altered mental status - Routine Psychiatric Exam Present: normal affect, normal thought process, cooperative Results - Labs CBC & Chem 7: 02/12/18 03:52 02/12/18 03:52 Microbiology Results: Microbiology 02/09/18 19:08 Peripheral/Iv Start Blood Culture - Preliminary No Growth After 2 Days 02/09/18 19:07 Peripheral/Iv Start Blood Culture - Preliminary No Growth After 2 Days 02/11/18 14:07 Sputum, Cf Patient Gram Stain - Final 02/11/18 14:07 Sputum, Cf Patient Sputum Culture - Final 02/10/18 21:10 Sputum, Expectorated Gram Stain - Final 02/10/18 21:10 Sputum, Expectorated Sputum Culture - Final Assessment and Plan (1) Acute on chronic respiratory failure with hypoxemia Current visit: No Status: Chronic (2) Chronic hypercapnic respiratory failure Current visit: Yes Status: Acute Assessment and Plan: Assessment Acute (on chronic) hypoxic respiratory failure Probable aspiration pneumonia Pleural effusions - Moderate left and small right CHF - acute on chronic diastolic/valvular Chronic hypercarbic respiratory failure with elevated HCO3 COPD with chronic hypoxia Restrictive lung disease secondary to kyphosis Tricuspid regurgitation/severe pulmonary hypertension/concentric LVH Venous stasis of the lower extremities Osteoporosis Hypertension Osteoarthritis History of complete heart block with pacemaker implantation Hyperlipidemia Hypokalemia (Not POA) Plan Continue with Unasyn for aspiration coverage - Day 4. Will give Lasix 40mg x1 this afternoon to help motivate fluid. Weight up from admission. Encourage therapy to improve functional status. Encourage activities. Recheck BMP in am due to diuretic use. Will recheck CBC in am due to pneumonia. Case discuss with family. Time spent with patient care 25 minutes. DVT Prophylaxis: SCD's Resuscitation Status: Do Not Resuscitate - Time spent with patient Time with patient PN: 25 minutes - Physician Narrative Physician: Eddie Hinojosa MD Narrative: Date: 02/12/18 Time: 1333 Hospital Course Summary Disclaimer: The visit summary below is not to be considered part of the above Progress Note. Hospital Course: 02/09/18 Admit, IP given her significant hypoxia. She desaturated to 60% on arrival as her portable oxygen ran out enroute. Stay expected to exceed 2 midnights given her acute hypoxic resp failure and comorbidities listed above. CBC, CMP, BNP, lactate, procal, BC x2. DuoNeb, acapella and O2 titration to keep sats >90%. On 3L home O2. Start Unasyn for probable aspiration pneumonia. Weight is stable compared to previous dismissal weight. Will hold off on decision to diurese until labs are resulted. I&Os and daily weights. SCD's for DVT ppx. Omeprazole for GI ppx and GERD DNR 02/10/18 Day 2 Unasyn for aspiration PNA coverage. Dr More saw pt and recommends gentle diureses, repeat CXR and home vent. Give Lasix 20mg IV now. Dr. More/SABINE will get the home vent set up. Requiring 5 L 02 (Home requirements=3L). Modified barium swallow performed d/t concern by speech therapy of aspiration. Fortunately no aspiration was seen. Speech rec soft diet and thin liquids. 02/11/18 Continue with Unasyn for aspiration coverage - Day 3. Will continue with Lasix 20mg IV daily to help motivate fluid - CXR this am showing little change. Replace potassium - with give 20mEg x1 today, continuing 20mEq with breakfast tomorrow. Tolerated BiPAP well last night - [place] working on outpatient vent for patient. Encourage therapy to improve functional status. 02/12/18 Continue with Unasyn for aspiration coverage - Day 4. Will give Lasix 40mg x1 this afternoon to help motivate fluid. Weight up from admission. Encourage therapy to improve functional status. Encourage activities.
[2018-02-12] MEDS ORDERED: FUROSEMIDE 40 MG/4 ML INJECTION IVP ONE (14:00)
[2018-02-12] MEDS: SALINE 0.65% NASAL SPRAY 44 ML BOTTLE EA NOSTRIL SCH ×2 (17:39→21:27)
[2018-02-12] MEDS: ACETAMINOPHEN 500 MG TABLET PO SCH (21:24)
[2018-02-12] MEDS: CETIRIZINE 10 MG TABLET PO SCH (21:25)
[2018-02-12] MEDS: ATORVASTATIN 10 MG TABLET PO SCH (21:25)
[2018-02-13] MEDS: OMEPRAZOLE 20 MG CAPSULE PO SCH (06:27)
[2018-02-13] MEDS: AMPICILLIN/SULBACTAM 3 G in NS 100 ML IV SCH ×2 (06:27→11:48)
[2018-02-13] MEDS: ALBUTEROL/IPRATROPIUM 2.5mg-0.5mg/3ml NEB AEROSOL SCH ×4 (07:23→19:45)
[2018-02-13] MEDS: BUDESONIDE INH.SOLN 0.5mg/2ml NEB AEROSOL SCH ×2 (07:23→19:52)
[2018-02-13] MEDS: TOLTERODINE 2 MG TABLET PO SCH ×2 (08:35→21:31)
[2018-02-13] MEDS: POLYETHYL GLYCOL 3350 17gm PACKET PO SCH (08:35)
[2018-02-13] MEDS: LUTEIN 20 MG CAPSULE PO SCH (08:35)
[2018-02-13] MEDS: CALCIUM 600 + VIT D 400 TABLET PO SCH ×2 (08:36→21:31)
[2018-02-13] MEDS: SALINE 0.65% NASAL SPRAY 44 ML BOTTLE EA NOSTRIL SCH ×4 (08:36→21:34)
[2018-02-13] MEDS: MULTI-VITAMIN + MINERAL TABLET PO SCH (08:36)
[2018-02-13] MEDS: FUROSEMIDE 40 MG TABLET PO SCH (08:36)
[2018-02-13] MEDS: SPIRONOLACTONE 25 MG TABLET PO SCH (08:36)
[2018-02-13] MEDS: ASPIRIN *EC* 81 MG TABLET PO SCH (11:48)
[2018-02-13] MEDS ORDERED: acetaZOLAMIDE SR 500 MG CAPSULE PO ONE (12:22)
--- NOTE | 2018-02-13 13:15 | Progress Note ---
- Date 02/13/18 Subjective: F/U: Acute on chronic hypoxic/hypercapnic respiratory failure, Probable aspiration pneumonia Doing about the same-not seeing much improvement to breathing. Still has some SOA and cough. No pain with breathing. Notes increased urine output with Lasix yesterday. Eating well. No nausea or ab pain. Bowels stable. Strength fair. No f /c. Objective Vital signs: Temperature 98.0 F 02/13/18 07:08 Pulse Rate 78 02/13/18 07:08 Respiratory Rate 20 02/13/18 11:29 Blood Pressure 140/70 H 02/13/18 07:08 Pulse Oximetry 92 02/13/18 11:29 Height/Weight/BMI: Height 1.63 m Weight 74.3 kg Body Mass Index 27.9 - Constitutional Present: well nourished, well developed, average body habitus, cooperative - Routine HEENT Exam Head: Present: normocephalic, atraumatic Eye: Present: EOMI, PERRL, normal accommodation ENT: Present: mucous membranes moist - Routine Respiratory Exam Present: decreased breath sounds (Basilar blunting), respiratory distress, distant breath sounds. Absent: wheezes, crackles - Routine Cardiovascular Exam Present: RRR - Routine Abdominal Exam Present: soft, normoactive bowel sounds, non distended, non tender - Routine Extremities Exam Present: edema (Trace BLE), pulses intact. Absent: cyanosis, clubbing - Routine Musculoskeletal Exam Musculoskeletal: Present: no clubbing or cyanosis - Routine Skin Exam Present: dry, warm - Routine Neurological Exam Present: alert, oriented X3, CN II-XII intact, moving all extremities, vision grossly intact, hearing grossly intact, normal speech. Absent: motor deficit, altered mental status - Routine Psychiatric Exam Present: normal affect, normal thought process, cooperative Results - Labs CBC & Chem 7: 02/13/18 03:41 02/13/18 03:41 Microbiology Results: Microbiology 02/09/18 19:07 Peripheral/Iv Start Blood Culture - Preliminary No Growth After 3 Days 02/09/18 19:08 Peripheral/Iv Start Blood Culture - Preliminary No Growth After 3 Days 02/11/18 14:07 Sputum, Cf Patient Gram Stain - Final 02/11/18 14:07 Sputum, Cf Patient Sputum Culture - Final 02/10/18 21:10 Sputum, Expectorated Gram Stain - Final 02/10/18 21:10 Sputum, Expectorated Sputum Culture - Final Assessment and Plan (1) Acute on chronic respiratory failure with hypoxemia Current visit: No Status: Chronic (2) Chronic hypercapnic respiratory failure Current visit: Yes Status: Acute Assessment and Plan: Assessment Acute (on chronic) hypoxic respiratory failure Probable aspiration pneumonia Pleural effusions - Moderate left and small right CHF - acute on chronic diastolic/valvular Chronic hypercarbic respiratory failure with elevated HCO3 COPD with chronic hypoxia Restrictive lung disease secondary to kyphosis Tricuspid regurgitation/severe pulmonary hypertension/concentric LVH Venous stasis of the lower extremities Osteoporosis Hypertension Osteoarthritis History of complete heart block with pacemaker implantation Hyperlipidemia Hypokalemia (Not POA) Plan Can stop Unasyn - did have 5 day course - not seeing obvious aspiration pneumonia, but was highly suspected. Repeat Lasix 40mg x1 this afternoon to help motivate fluid. CXR not showing much change. Diamox 500mg x1 at noon. Extra KCl this evening. Encourage continued BiPAP use at night - patient tolerating well. Continue with ambulation and activities to help improve functional status. Recheck BMP in am due to diuretic use. Case discuss with family, discussed patient's status and treatment plan at length. Time spent with patient care 35 minutes. DVT Prophylaxis: SCD's Resuscitation Status: Do Not Resuscitate - Time spent with patient Time with patient PN: 35 minutes - Physician Narrative Physician: Eddie Hinojosa MD Narrative: Date: 02/13/18 Time: 1310 Hospital Course Summary Disclaimer: The visit summary below is not to be considered part of the above Progress Note. Hospital Course: 02/09/18 Admit, IP given her significant hypoxia. She desaturated to 60% on arrival as her portable oxygen ran out enroute. Stay expected to exceed 2 midnights given her acute hypoxic resp failure and comorbidities listed above. CBC, CMP, BNP, lactate, procal, BC x2. DuoNeb, acapella and O2 titration to keep sats >90%. On 3L home O2. Start Unasyn for probable aspiration pneumonia. Weight is stable compared to previous dismissal weight. Will hold off on decision to diurese until labs are resulted. I&Os and daily weights. SCD's for DVT ppx. Omeprazole for GI ppx and GERD DNR 02/10/18 Day 2 Unasyn for aspiration PNA coverage. Dr More saw pt and recommends gentle diureses, repeat CXR and home vent. Give Lasix 20mg IV now. Dr. More/SABINE will get the home vent set up. Requiring 5 L 02 (Home requirements=3L). Modified barium swallow performed d/t concern by speech therapy of aspiration. Fortunately no aspiration was seen. Speech rec soft diet and thin liquids. 02/11/18 Continue with Unasyn for aspiration coverage - Day 3. Will continue with Lasix 20mg IV daily to help motivate fluid - CXR this am showing little change. Replace potassium - with give 20mEg x1 today, continuing 20mEq with breakfast tomorrow. Tolerated BiPAP well last night - pulm working on outpatient vent for patient. Encourage therapy to improve functional status. 02/12/18 Continue with Unasyn for aspiration coverage - Day 4. Will give Lasix 40mg x1 this afternoon to help motivate fluid. Weight up from admission. Encourage therapy to improve functional status. Encourage activities. 02/13/18 Can stop Unasyn - did have 5 day course - not seeing obvious aspiration pneumonia, but was highly suspected. Repeat Lasix 40mg x1 this afternoon to help motivate fluid. CXR not showing much change. Diamox 500mg x1 at noon. Extra KCl this evening. Encourage continued BiPAP use at night - patient tolerating well. Continue with ambulation and activities to help improve functional status.
[2018-02-13] MEDS ORDERED: FUROSEMIDE 40 MG/4 ML INJECTION IVP ONE (14:00)
--- NOTE | 2018-02-13 14:21 | XRay Report ---
Indication: pleural effusion PROCEDURE: XR chest 1V: Encounter: Initial Comparison: February 11, 2018 Findings: Pleural effusions are stable along with compressive atelectasis in both lower lung zones. No pneumothorax. No new or worsening airspace consolidation. Heart size and mediastinal contours are stable. Left pacemaker. Impression: Stable pleural effusions. .
--- NOTE | 2018-02-13 15:09 | Pulmonology Progress Note ---
Subjective Interval history: Patient is up eating. No distress, no coughing. on nasal cannula O2. feels that her breathing isn't quite as good as normal Wore bipap ST again last night with no complaints. Exam Vital signs: Temperature 97.1 F 02/13/18 14:34 Pulse Rate 74 02/13/18 14:34 Respiratory Rate 18 02/13/18 14:34 Blood Pressure 142/80 H 02/13/18 14:34 Pulse Oximetry 90 02/13/18 14:34 Inpatient Medications: Generic Name Dose Route Start Last Admin Trade Name Freq PRN Reason Stop Dose Admin Acetaminophen 650 mg 02/09/18 22:22 Tylenol PO QID PRN Discomfort Acetaminophen 1,000 mg 02/10/18 21:00 02/12/18 21:24 Tylenol PO 1,000 mg HS BANDAR Administration Acetaminophen 500 - 1,000 mg 02/09/18 23:08 Tylenol PO BID PRN Pain Hydrocodone Bitart/Acetaminophen 1 tab 02/09/18 23:08 [place] 5/325 PO Q6HR PRN Pain Al Hydroxide/Mg Hydroxide 30 ml 02/10/18 06:55 Maalox Plus PO Q4H PRN Indigestion Albuterol/Ipratropium 3 ml 02/09/18 17:29 02/09/18 17:29 Duoneb AEROSOL 3 ml RTQID PRN Administration Albuterol/Ipratropium 3 ml 02/09/18 19:00 02/13/18 11:29 Duoneb AEROSOL 3 ml RTQID BANDAR Administration Aspirin 81 mg 02/10/18 12:00 02/13/18 11:48 Ecotrin PO 81 mg NOON BANDAR Administration Atorvastatin Calcium 10 mg 02/10/18 21:00 02/12/18 21:25 Lipitor PO 10 mg HS BANDAR Administration Budesonide 0.5 mg 02/09/18 21:00 02/13/18 07:23 Pulmicort Inhalation AEROSOL 0.5 mg BID BANDAR Administration Calcium/Vitamin D 1 tab 02/10/18 09:00 02/13/18 08:36 Caltrate + D PO 1 tab BID BANDAR Administration Cetirizine HCl 10 mg 02/10/18 21:00 02/12/18 21:25 Zyrtec PO 10 mg HS BANDAR Administration Cholecalciferol 2,000 unit 02/10/18 09:00 02/13/18 08:35 Vit. D-3 PO 2,000 unit DAILY BANDAR Administration Furosemide 40 mg 02/10/18 09:00 02/13/18 08:36 Lasix 40 Mg Tab PO 40 mg DAILY BANDAR Administration Guaifenesin/Dextromethorphan 10 ml 02/09/18 22:20 02/10/18 20:58 Robitussin Dm PO 10 ml Q4-6HR PRN Administration Cough /Congestion Lorazepam 0.5 mg 02/09/18 22:20 Ativan PO HS PRN Anxiety Lutein 20 mg 02/10/18 09:00 02/13/18 08:35 PO 20 mg DAILY BANDAR Administration Magnesium Hydroxide 15 - 30 ml 02/09/18 23:08 Mom PO DAILY PRN Constipation Menthol 1 lozenge 02/10/18 06:57 Ricola Sf MM Q2H PRN Cough Multivitamins/Minerals 1 tab 02/10/18 09:00 02/13/18 08:36 Therapeutic - M PO 1 tab DAILY BANDAR Administration Omeprazole 40 mg 02/10/18 06:30 02/13/18 06:27 Prilosec PO 40 mg ACB BANDAR Administration Ondansetron HCl 4 mg 02/09/18 23:08 Zofran Po PO Q8H PRN Nausea Polyethylene Glycol 17 gm 02/10/18 09:00 02/13/18 08:35 Miralax PO 17 gm DAILY BANDAR Administration Potassium Chloride 20 meq 02/12/18 08:00 02/13/18 08:35 Micro-K 10 Meq Capsule PO 20 meq WB BANDAR Administration Potassium Chloride 10 meq 02/13/18 17:30 Micro-K 10 Meq Capsule PO 02/13/18 17:31 O ONE Sodium Chloride 500 ml 02/10/18 23:53 02/12/18 12:00 Normal Saline IV 500 ml PRN PRN Administration Sodium Chloride 500 ml 02/12/18 12:47 Normal Saline IV PRN PRN Sodium Chloride 2 spray 02/12/18 17:17 02/13/18 12:36 Deep Sea Nasal Moisturizing [place] EA NOSTRIL 2 spray QID BANDAR Administration Spironolactone 25 mg 02/10/18 09:00 02/13/18 08:36 Aldactone 25 Mg PO 25 mg DAILY BANDAR Administration Tolterodine Tartrate 1 mg 02/10/18 09:00 02/13/18 08:35 Detrol PO 1 mg BID BANDAR Administration Discontinued Medications Generic Name Dose Route Start Last Admin Trade Name Santyq PRN Reason Stop Dose Admin Acetazolamide 250 mg 02/10/18 08:00 02/10/18 09:50 Diamox 250 Mg PO 02/10/18 08:01 250 mg O ONE Administration Acetazolamide 500 mg 02/13/18 12:22 02/13/18 12:36 Diamox 500 Mg Sequels PO 02/13/18 12:23 500 mg O ONE Administration Albuterol/Ipratropium 3 ml 02/09/18 19:00 Duoneb AEROSOL RTQID PRN Furosemide 40 mg 02/10/18 09:00 Lasix 40 Mg Tab PO DAILY BANDAR Furosemide 20 mg 02/10/18 17:43 02/10/18 18:44 Lasix 20 Mg/2 Ml IVP 02/10/18 17:44 20 mg O ONE Administration Furosemide 20 mg 02/11/18 11:00 02/12/18 09:21 Lasix 20 Mg/2 Ml IVP Not Given DAILY BANDAR Furosemide 40 mg 02/12/18 14:00 02/12/18 14:02 Lasix 40 Mg/4 Ml IVP 02/12/18 14:01 40 mg O ONE Administration Furosemide 40 mg 02/13/18 14:00 Lasix 40 Mg/4 Ml IVP 02/13/18 14:01 O ONE Guaifenesin/Dextromethorphan 10 ml 02/09/18 23:08 Robitussin Dm PO Q6H PRN PRN orders Ampicillin Sodium/Sulbactam 100 mls @ 200 mls/hr 02/09/18 18:00 02/13/18 12: 22 Sodium 3 g/ Sodium Chloride IV Infused Q6H BANDAR Infusion Lorazepam 0.5 mg 02/09/18 23:08 Ativan PO HS PRN anxiety Non-Formulary Medication 1 tab 02/10/18 09:00 Calcium Carb/Vitamin D3/Vit K1 [Viactiv Soft Chew] PO BID BANDAR Non-Formulary Medication 10 mg 02/10/18 21:00 Cetirizine Hcl [Zyrtec] PO HS BANDAR Non-Formulary Medication 2,000 mg 02/10/18 09:00 Cholecalciferol (Vitamin D3) [Vitamin D3] PO DAILY BANDAR Non-Formulary Medication 1 lozenge 02/09/18 23:08 Dextromethorphan Hbr/B-Jhonny [Cepacol Sorethroat-Cough Angela] PO Q2HR PRN Sore throat Non-Formulary Medication 20 mg 02/10/18 09:00 Lutein [Lutein] PO DAILY BANDAR Non-Formulary Medication 30 ml 02/09/18 23:08 Mag Hydrox/Aluminum Hyd/Simeth [Alum-Mag Hydroxide-Simeth Liq] PO Q4H PRN Epigastric distress Non-Formulary Medication 1 tab 02/10/18 12:00 Multivitamin [One Daily Multivitamin] PO NOON BANDAR Non-Formulary Medication 40 mg 02/10/18 06:30 Omeprazole [Omeprazole] PO ACB [facility] Non-Formulary Medication 1 mg 02/10/18 09:00 Tolterodine Tartrate [Detrol] PO BID [facility] Potassium Chloride 20 meq 02/11/18 12:30 02/11/18 12:37 Micro-K 10 Meq Capsule PO 02/11/18 12:31 20 meq O ONE Administration Potassium Chloride 20 meq 02/11/18 17:30 02/11/18 18:16 Micro-K 10 Meq Capsule PO 02/11/18 17:31 20 meq O ONE Administration Spironolactone 25 mg 02/10/18 09:00 Aldactone 25 Mg PO DAILY [facility] - Constitutional no acute distress, obese - Routine HEENT Exam Head: Present: normocephalic, atraumatic Eye: Absent: conjunctival icterus - Routine Neck Exam Present: supple - Routine Respiratory Exam Present: decreased breath sounds. Absent: accessory muscle use - Routine Cardiovascular Exam Present: RRR - Routine Back/Spine/Pelvis Exam Back/Spine: Present: kyphosis Results - Laboratory Findings Laboratory: Laboratory Results - last 48 hr 02/12/18 02/12/18 02/13/18 03:52 03:52 03:41 WBC 4.8 5.1 RBC 3.92 L 3.78 L Hgb 11.9 L 11.6 L Hct 39.8 38.9 MCV 101.5 H 102.9 H MCH 30.4 30.7 MCHC 29.9 L 29.8 L RDW Std Deviation 55.8 H 56.6 H Plt Count 163 154 MPV 10.2 10.3 Immature Gran % (Auto) 0.4 0.2 Neut % (Auto) 58.3 65.7 Lymph % (Auto) 28.0 20.2 L [place] % (Auto) 10.6 H 10.1 H Eos % (Auto) 2.5 3.6 Baso % (Auto) 0.2 0.2 Neut # (Auto) 2.8 3.3 Lymph # (Auto) 1.3 1.0 [place] # (Auto) 0.5 0.5 Eos # (Auto) 0.1 0.2 Baso # (Auto) 0.0 0.0 Abs Immat Gran (auto) 0.02 0.01 Turbidity < 20 Sodium 141 Potassium 3.9 Chloride 94 L Carbon Dioxide 39 H Anion Gap 8 BUN 22.0 H Creatinine 0.8 Estimated Creat Clear 38 GFR Calculation 68 BUN/Creatinine Ratio 28 H Glucose 110 Calculated Osmolality 275 Calcium 9.2 Magnesium 2.3 Icterus Index < 2 Specimen Hemolysis < 15 02/13/18 03:41 WBC RBC Hgb Hct MCV MCH MCHC RDW Std Deviation Plt Count MPV Immature Gran % (Auto) Neut % (Auto) Lymph % (Auto) [place] % (Auto) Eos % (Auto) Baso % (Auto) Neut # (Auto) Lymph # (Auto) [place] # (Auto) Eos # (Auto) Baso # (Auto) Abs Immat Gran (auto) Turbidity < 20 Sodium 142 Potassium 3.8 Chloride 95 L Carbon Dioxide 40 H Anion Gap 7 BUN 23.0 H Creatinine 0.7 Estimated Creat Clear 38 GFR Calculation 79 BUN/Creatinine Ratio 33 H Glucose 106 Calculated Osmolality 277 Calcium 9.3 Magnesium Icterus Index < 2 Specimen Hemolysis < 15 - Diagnostic Findings Chest x-ray: report reviewed, image reviewed Assessment and Plan (1) Pleural effusion Status: Acute Assessment and plan: acute on chronic effusions. left effusion appears slightly larger. on furosemide 40 PO daily and Spironolactone 25 daily. I recommend additional dose of IV lasix today. Creatinine is normal repeat CXR Wednesday Current Visit: Yes (2) Atelectasis Status: Acute Assessment and plan: Recommend EZpap with neb treatments. IS q1h wa Current Visit: No (3) Acute and chronic respiratory failure with hypercapnia Status: Acute Assessment and plan: She has recurrent exacerbations of her chronic hypercapnic respiratory failure. I recommend a home vent to mask to improve her hypercapnia, reduced the risk of hospitalization and . Currently tolerating BIPAP ST 15/5, rate 14, Fio2 40%. Current Visit: Yes - Time Spent With Patient Total time spent is greater than 50% in coordination of care (as documented) at patient's floor/unit and/or counseling patient: less than 15 minutes
[2018-02-13] MEDS: ACETAMINOPHEN 500 MG TABLET PO SCH (21:27)
[2018-02-13] MEDS: CETIRIZINE 10 MG TABLET PO SCH (21:31)
[2018-02-13] MEDS: ATORVASTATIN 10 MG TABLET PO SCH (21:31)
[2018-02-14] MEDS: OMEPRAZOLE 20 MG CAPSULE PO SCH (06:10)
[2018-02-14] MEDS: ALBUTEROL/IPRATROPIUM 2.5mg-0.5mg/3ml NEB AEROSOL SCH ×5 (07:12→21:15)
[2018-02-14] MEDS: BUDESONIDE INH.SOLN 0.5mg/2ml NEB AEROSOL SCH ×2 (07:12→21:15)
[2018-02-14] MEDS: SALINE FLUSH 10ml SYRINGE IV PRN ×2 (07:59→12:30)
--- NOTE | 2018-02-14 09:07 | Pulmonology Progress Note ---
Subjective Principal diagnosis: CHF, pleural effusion Interval history: Patient is up eating. No distress, no coughing. on nasal cannula O2. feels that her breathing isn't quite as good as normal Wore bipap ST again last night with no complaints. Exam Vital signs: Temperature 97.0 F 02/14/18 07:36 Pulse Rate 77 02/14/18 07:36 Respiratory Rate 22 02/14/18 07:36 Blood Pressure 152/73 H 02/14/18 07:36 Pulse Oximetry 92 02/14/18 07:36 Inpatient Medications: Generic Name Dose Route Start Last Admin Trade Name Freq PRN Reason Stop Dose Admin Acetaminophen 650 mg 02/09/18 22:22 Tylenol PO QID PRN Discomfort Acetaminophen 1,000 mg 02/10/18 21:00 02/13/18 21:27 Tylenol PO 1,000 mg HS BANDAR Administration Acetaminophen 500 - 1,000 mg 02/09/18 23:08 Tylenol PO BID PRN Pain Hydrocodone Bitart/Acetaminophen 1 tab 02/09/18 23:08 [place] 5/325 PO Q6HR PRN Pain Al Hydroxide/Mg Hydroxide 30 ml 02/10/18 06:55 Maalox Plus PO Q4H PRN Indigestion Albuterol/Ipratropium 3 ml 02/09/18 17:29 02/09/18 17:29 Duoneb AEROSOL 3 ml RTQID PRN Administration Albuterol/Ipratropium 3 ml 02/09/18 19:00 02/14/18 07:12 Duoneb AEROSOL 3 ml RTQID BANDAR Administration Aspirin 81 mg 02/10/18 12:00 02/13/18 11:48 Ecotrin PO 81 mg NOON BANDAR Administration Atorvastatin Calcium 10 mg 02/10/18 21:00 02/13/18 21:31 Lipitor PO 10 mg HS BANDAR Administration Budesonide 0.5 mg 02/09/18 21:00 02/14/18 07:12 Pulmicort Inhalation AEROSOL 0.5 mg BID BANDAR Administration Calcium/Vitamin D 1 tab 02/10/18 09:00 02/13/18 21:31 Caltrate + D PO 1 tab BID BANDAR Administration Cetirizine HCl 10 mg 02/10/18 21:00 02/13/18 21:31 Zyrtec PO 10 mg HS BANDAR Administration Cholecalciferol 2,000 unit 02/10/18 09:00 02/13/18 08:35 Vit. D-3 PO 2,000 unit DAILY BANDAR Administration Furosemide 40 mg 02/10/18 09:00 02/13/18 08:36 Lasix 40 Mg Tab PO 40 mg DAILY BANDAR Administration Guaifenesin/Dextromethorphan 10 ml 02/09/18 22:20 02/10/18 20:58 Robitussin Dm PO 10 ml Q4-6HR PRN Administration Cough /Congestion Lorazepam 0.5 mg 02/09/18 22:20 Ativan PO HS PRN Anxiety Lutein 20 mg 02/10/18 09:00 02/13/18 08:35 PO 20 mg DAILY BANDAR Administration Magnesium Hydroxide 15 - 30 ml 02/09/18 23:08 Mom PO DAILY PRN Constipation Menthol 1 lozenge 02/10/18 06:57 Ricola Sf MM Q2H PRN Cough Multivitamins/Minerals 1 tab 02/10/18 09:00 02/13/18 08:36 Therapeutic - M PO 1 tab DAILY BANDAR Administration Omeprazole 40 mg 02/10/18 06:30 02/14/18 06:10 Prilosec PO 40 mg ACB BANDAR Administration Ondansetron HCl 4 mg 02/09/18 23:08 Zofran Po PO Q8H PRN Nausea Polyethylene Glycol 17 gm 02/10/18 09:00 02/13/18 08:35 Miralax PO 17 gm DAILY BANDAR Administration Potassium Chloride 20 meq 02/12/18 08:00 02/13/18 08:35 Micro-K 10 Meq Capsule PO 20 meq WB BANDAR Administration Sodium Chloride 500 ml 02/10/18 23:53 02/12/18 12:00 Normal Saline IV 500 ml PRN PRN Administration Sodium Chloride 500 ml 02/12/18 12:47 Normal Saline IV PRN PRN Sodium Chloride 2 spray 02/12/18 17:17 02/13/18 21:34 Deep Sea Nasal Moisturizing [place] EA NOSTRIL 2 spray QID BANDAR Administration Sodium Chloride 10 - 80 ml 02/14/18 07:50 02/14/18 07:59 Iv Flush IV 10 ml PRN PRN Administration [place] Spironolactone 25 mg 02/10/18 09:00 02/13/18 08:36 Aldactone 25 Mg PO 25 mg DAILY BANDAR Administration Tolterodine Tartrate 1 mg 02/10/18 09:00 02/13/18 21:31 Detrol PO 1 mg BID BANDAR Administration Discontinued Medications Generic Name Dose Route Start Last Admin Trade Name Erick PRN Reason Stop Dose Admin Acetazolamide 250 mg 02/10/18 08:00 02/10/18 09:50 Diamox 250 Mg PO 02/10/18 08:01 250 mg O ONE Administration Acetazolamide 500 mg 02/13/18 12:22 02/13/18 12:36 Diamox 500 Mg Sequels PO 02/13/18 12:23 500 mg O ONE Administration Albuterol/Ipratropium 3 ml 02/09/18 19:00 Duoneb AEROSOL RTQID PRN Furosemide 40 mg 02/10/18 09:00 Lasix 40 Mg Tab PO DAILY BANDAR Furosemide 20 mg 02/10/18 17:43 02/10/18 18:44 Lasix 20 Mg/2 Ml IVP 02/10/18 17:44 20 mg O ONE Administration Furosemide 20 mg 02/11/18 11:00 02/12/18 09:21 Lasix 20 Mg/2 Ml IVP Not Given DAILY BANDAR Furosemide 40 mg 02/12/18 14:00 02/12/18 14:02 Lasix 40 Mg/4 Ml IVP 02/12/18 14:01 40 mg O ONE Administration Furosemide 40 mg 02/13/18 14:00 02/13/18 15:33 Lasix 40 Mg/4 Ml IVP 02/13/18 14:01 40 mg O ONE Administration Guaifenesin/Dextromethorphan 10 ml 02/09/18 23:08 Robitussin Dm PO Q6H PRN PRN orders Ampicillin Sodium/Sulbactam 100 mls @ 200 mls/hr 02/09/18 18:00 02/13/18 12: 22 Sodium 3 g/ Sodium Chloride IV Infused Q6H BANDAR Infusion Lorazepam 0.5 mg 02/09/18 23:08 Ativan PO HS PRN anxiety Non-Formulary Medication 1 tab 02/10/18 09:00 Calcium Carb/Vitamin D3/Vit K1 [Viactiv Soft Chew] PO BID BANDAR Non-Formulary Medication 10 mg 02/10/18 21:00 Cetirizine Hcl [Zyrtec] PO HS BANDAR Non-Formulary Medication 2,000 mg 02/10/18 09:00 Cholecalciferol (Vitamin D3) [Vitamin D3] PO DAILY [facility] Non-Formulary Medication 1 lozenge 02/09/18 23:08 Dextromethorphan Hbr/B-Jhonny [Cepacol Sorethroat-Cough Angela] PO Q2HR PRN Sore throat Non-Formulary Medication 20 mg 02/10/18 09:00 Lutein [Lutein] PO DAILY [facility] Non-Formulary Medication 30 ml 02/09/18 23:08 Mag Hydrox/Aluminum Hyd/Simeth [Alum-Mag Hydroxide-Simeth Liq] PO Q4H PRN Epigastric distress Non-Formulary Medication 1 tab 02/10/18 12:00 Multivitamin [One Daily Multivitamin] PO NOON [facility] Non-Formulary Medication 40 mg 02/10/18 06:30 Omeprazole [Omeprazole] PO ACB [facility] Non-Formulary Medication 1 mg 02/10/18 09:00 Tolterodine Tartrate [Detrol] PO BID [facility] Potassium Chloride 20 meq 02/11/18 12:30 02/11/18 12:37 Micro-K 10 Meq Capsule PO 02/11/18 12:31 20 meq O ONE Administration Potassium Chloride 20 meq 02/11/18 17:30 02/11/18 18:16 Micro-K 10 Meq Capsule PO 02/11/18 17:31 20 meq O ONE Administration Potassium Chloride 10 meq 02/13/18 17:30 02/13/18 17:41 Micro-K 10 Meq Capsule PO 02/13/18 17:31 10 meq O ONE Administration Potassium Chloride 10 meq 02/13/18 15:13 02/13/18 16:00 K-Dur 10 Meq Tablet PO 02/13/18 15:14 10 meq O ONE Administration Spironolactone 25 mg 02/10/18 09:00 Aldactone 25 Mg PO DAILY [facility] - Constitutional mild distress, obese - Routine HEENT Exam Head: Present: normocephalic, atraumatic Eye: Present: EOMI, PERRL ENT: Present: mucous membranes moist - Routine Neck Exam Present: supple, full ROM, trachea midline - Routine Respiratory Exam Present: decreased breath sounds, rhonchi, crackles. Absent: accessory muscle use, patient mechanically ventilated - Routine Cardiovascular Exam Present: RRR, S1, S2, murmur - Routine Abdominal Exam Present: soft, normoactive bowel sounds - Routine Extremities Exam Present: edema, non tender, full ROM - Routine Back/Spine/Pelvis Exam Back/Spine: Present: kyphosis - Routine Skin Exam Present: intact, dry - Routine Neurological Exam Present: alert, CN II-XII intact - Routine Psychiatric Exam Present: normal affect, normal thought process Results - Laboratory Findings Laboratory: Laboratory Results - last 48 hr 02/13/18 02/13/18 02/14/18 03:41 03:41 03:41 WBC 5.1 5.6 RBC 3.78 L 3.90 L Hgb 11.6 L 12.0 Hct 38.9 40.9 MCV 102.9 H 104.9 H MCH 30.7 30.8 MCHC 29.8 L 29.3 L RDW Std Deviation 56.6 H 56.6 H Plt Count 154 146 MPV 10.3 10.4 Immature Gran % (Auto) 0.2 0.2 Neut % (Auto) 65.7 64.2 Lymph % (Auto) 20.2 L 21.5 L [place] % (Auto) 10.1 H 10.7 H Eos % (Auto) 3.6 3.2 Baso % (Auto) 0.2 0.2 Neut # (Auto) 3.3 3.6 Lymph # (Auto) 1.0 1.2 [place] # (Auto) 0.5 0.6 Eos # (Auto) 0.2 0.2 Baso # (Auto) 0.0 0.0 Abs Immat Gran (auto) 0.01 0.01 Turbidity < 20 Sodium 142 Potassium 3.8 Chloride 95 L Carbon Dioxide 40 H Anion Gap 7 BUN 23.0 H Creatinine 0.7 Estimated Creat Clear 38 GFR Calculation 79 BUN/Creatinine Ratio 33 H Glucose 106 Calculated Osmolality 277 Calcium 9.3 Icterus Index < 2 Specimen Hemolysis < 15 02/14/18 03:41 WBC RBC Hgb Hct MCV MCH MCHC RDW Std Deviation Plt Count MPV Immature Gran % (Auto) Neut % (Auto) Lymph % (Auto) [place] % (Auto) Eos % (Auto) Baso % (Auto) Neut # (Auto) Lymph # (Auto) [place] # (Auto) Eos # (Auto) Baso # (Auto) Abs Immat Gran (auto) Turbidity < 20 Sodium 141 Potassium 4.0 Chloride 93 L Carbon Dioxide 38 H Anion Gap 10 BUN 25.0 H Creatinine 0.9 D Estimated Creat Clear 38 GFR Calculation 59 BUN/Creatinine Ratio 28 H Glucose 106 Calculated Osmolality 275 Calcium 9.0 Icterus Index < 2 Specimen Hemolysis 27 H Assessment and Plan (1) Acute on chronic respiratory failure with hypoxemia Status: Chronic Current Visit: No (2) Atelectasis Status: Acute Current Visit: No (3) Pleural effusion Status: Acute Current Visit: Yes (4) CHF (congestive heart failure) Status: Chronic Current Visit: No - Assessment and Plan Plan: Pt currently on O2 at 3L per [place], sherry Bipap 14, 15/5, [facility], CXR yesterday still with bilateral effusions and atelectasis. Continue on diuresis, received extra dose of lasix yesterday, will repeat and recheck CXR in am. If not improved will proceed with thoracentesis. I/O +1L, Cr 0.9. Continue BT's with pulmicort BID, A/A QID with acapella. Chronic Respiratory Failure with ABG 7.32/ 82/73, would recommend continuing bipap at [facility] to decrease her risk of hospitalization and . - Time Spent With Patient Total time spent is greater than 50% in coordination of care (as documented) at patient's floor/unit and/or counseling patient: less than 15 minutes
[2018-02-14] MEDS: GUAIFENESIN/DM 5ml ORAL LIQUID PO PRN (10:56)
[2018-02-14] MEDS: FUROSEMIDE 40 MG TABLET PO SCH (10:57)
[2018-02-14] MEDS: SPIRONOLACTONE 25 MG TABLET PO SCH (10:57)
[2018-02-14] MEDS: MULTI-VITAMIN + MINERAL TABLET PO SCH (10:57)
[2018-02-14] MEDS: POLYETHYL GLYCOL 3350 17gm PACKET PO SCH (10:58)
[2018-02-14] MEDS: LUTEIN 20 MG CAPSULE PO SCH (10:58)
[2018-02-14] MEDS: TOLTERODINE 2 MG TABLET PO SCH ×2 (10:58→20:30)
[2018-02-14] MEDS: CALCIUM 600 + VIT D 400 TABLET PO SCH ×2 (10:58→20:31)
[2018-02-14] MEDS: SALINE 0.65% NASAL SPRAY 44 ML BOTTLE EA NOSTRIL SCH ×4 (10:58→20:31)
[2018-02-14] MEDS: ASPIRIN *EC* 81 MG TABLET PO SCH (11:00)
--- NOTE | 2018-02-14 11:27 | Progress Note ---
- Date 02/14/18 Subjective: Ivonne states that her breathing is about at baseline. She is always short of breath, especially with activity. She has a chronic cough with white sputum. She states that she is having problems eating her breakfast b/c of frequent cough. It isn't worse than normal. She denies feeling dizzy or lightheaded with ambulation. She denies abdominal pain or nausea. She denies chest or back pain. Objective Vital signs: Temperature 97.0 F 02/14/18 07:36 Pulse Rate 77 02/14/18 07:36 Respiratory Rate 20 02/14/18 10:34 Blood Pressure 152/73 H 02/14/18 07:36 Pulse Oximetry 95 02/14/18 10:34 Height/Weight/BMI: Height 1.63 m Weight 75.1 kg Body Mass Index 27.9 - Constitutional Present: well nourished, well developed - Routine HEENT Exam Head: Present: normocephalic Eye: Present: PERRL. Absent: conjunctival icterus, scleral injection - Routine Respiratory Exam Present: accessory muscle use, decreased breath sounds, crackles - Routine Cardiovascular Exam Present: RRR, S1, S2, murmur - Routine Abdominal Exam Present: soft, normoactive bowel sounds, non distended, non tender - Routine Extremities Exam Present: no edema - Routine Skin Exam Present: intact, dry, warm - Routine Neurological Exam Present: alert, oriented X3, moving all extremities, vision grossly intact, hearing grossly intact, normal speech - Routine Psychiatric Exam Present: normal affect, normal thought process, cooperative Results - Labs CBC & Chem 7: 02/14/18 03:41 02/14/18 03:41 Microbiology Results: Microbiology 02/09/18 19:08 Peripheral/Iv Start Blood Culture - Preliminary No Growth After 4 Days 02/09/18 19:07 Peripheral/Iv Start Blood Culture - Preliminary No Growth After 4 Days 02/11/18 14:07 Sputum, Cf Patient Gram Stain - Final 02/11/18 14:07 Sputum, Cf Patient Sputum Culture - Final 02/10/18 21:10 Sputum, Expectorated Gram Stain - Final 02/10/18 21:10 Sputum, Expectorated Sputum Culture - Final Assessment and Plan (1) Acute on chronic respiratory failure with hypoxemia Current visit: No Status: Chronic (2) Chronic hypercapnic respiratory failure Current visit: Yes Status: Acute Assessment and Plan: Assessment Acute (on chronic) hypoxic respiratory failure Probable aspiration pneumonia Pleural effusions - Moderate left and small right CHF - acute on chronic diastolic/valvular Chronic hypercarbic respiratory failure with elevated HCO3 COPD with chronic hypoxia Restrictive lung disease secondary to kyphosis Tricuspid regurgitation/severe pulmonary hypertension/concentric LVH Venous stasis of the lower extremities Osteoporosis Hypertension Osteoarthritis History of complete heart block with pacemaker implantation Hyperlipidemia Hypokalemia (Not POA) Plan Lasix 40 mg IV x1 again today (cont oral Lasix and spironolactone). Repeat CXR in am -- per pulm, will proceed with thoracentesis if effusion is not improved. Tolerating BiPAP HS - pulm recommending home vent to mask. D/W Dr. Hinojosa. DVT Prophylaxis: SCD's Resuscitation Status: Do Not Resuscitate - Time spent with patient Time with patient PN: 25 minutes - Physician Narrative Physician: Eddie Hinojosa MD Narrative: Date: 02/14/18 Time: 1852 Have independently interviewed and examined pt. Chart reviewed. Case discussed with Pulm and my WEB ASSISTANT. Care plan developed with my supervision; agree with above. Doing about the same. Breathing not worsening, just not improving. Appetite stable. Working on more activities. No f/c. Lungs: decreased bilaterally, basilar blunting. CV: regular with murmur AB: soft nt MSE: awake alert Plan: Repeated CXR without significant improvement despite increased diuretics. Pulm looking into thoracentesis tomorrow. Pt hopeful it will help breathing improve. Hospital Course Summary Disclaimer: The visit summary below is not to be considered part of the above Progress Note. Hospital Course: 02/09/18 Admit, IP given her significant hypoxia. She desaturated to 60% on arrival as her portable oxygen ran out enroute. Stay expected to exceed 2 midnights given her acute hypoxic resp failure and comorbidities listed above. CBC, CMP, BNP, lactate, procal, BC x2. DuoNeb, acapella and O2 titration to keep sats >90%. On 3L home O2. Start Unasyn for probable aspiration pneumonia. Weight is stable compared to previous dismissal weight. Will hold off on decision to diurese until labs are resulted. I&Os and daily weights. SCD's for DVT ppx. Omeprazole for GI ppx and GERD DNR 02/10/18 Day 2 Unasyn for aspiration PNA coverage. Dr More saw pt and recommends gentle diureses, repeat CXR and home vent. Give Lasix 20mg IV now. Dr. More/SABINE will get the home vent set up. Requiring 5 L 02 (Home requirements=3L). Modified barium swallow performed d/t concern by speech therapy of aspiration. Fortunately no aspiration was seen. Speech rec soft diet and thin liquids. 02/11/18 Continue with Unasyn for aspiration coverage - Day 3. Will continue with Lasix 20mg IV daily to help motivate fluid - CXR this am showing little change. Replace potassium - with give 20mEg x1 today, continuing 20mEq with breakfast tomorrow. Tolerated BiPAP well last night - pulm working on outpatient vent for patient. 02/12/18 Continue with Unasyn for aspiration coverage - Day 4. Will give Lasix 40mg x1 this afternoon to help motivate fluid. Weight up from admission. Encourage therapy to improve functional status. Encourage activities. 02/13/18 Can stop Unasyn - did have 5 day course - not seeing obvious aspiration pneumonia, but was highly suspected. Repeat Lasix 40mg x1 this afternoon to help motivate fluid. CXR not showing much change. Diamox 500mg x1 at noon. Extra KCl this evening. Encourage continued BiPAP use at night - patient tolerating well. 02/14/18 Lasix 40 mg IV x1 again today (cont oral Lasix and spironolactone). Repeat CXR in am -- per pulm, will proceed with thoracentesis if effusion is not improved.
[2018-02-14] MEDS ORDERED: FUROSEMIDE 40 MG/4 ML INJECTION IVP ONE (11:28)
--- NOTE | 2018-02-14 14:35 | XRay Report ---
EXAM: XR chest 1V COMPARISON: A 2017. 02/11/2018. 01/10/2018. 10/11/2011. HISTORY: f/u effusion . FINDINGS: The heart is enlarged. The pulmonary vascularity is mildly prominent but less indistinct. Added opacity at the lung bases with obscuration of the hemidiaphragms and blunting of the costophrenic angles. This appears similar to the prior exam. There is no evidence for a pneumothorax. Degenerative changes in the right shoulder is again noted. IMPRESSION: Persistent small to moderate-sized bilateral pleural effusions with basilar atelectatic changes or infiltrates. LOCATION OF DICTATION: [facility] [place]
[2018-02-14] MEDS: ACETAMINOPHEN 500 MG TABLET PO SCH (20:30)
[2018-02-14] MEDS: ATORVASTATIN 10 MG TABLET PO SCH (20:31)
[2018-02-14] MEDS: CETIRIZINE 10 MG TABLET PO SCH (20:31)
[2018-02-15] MEDS: OMEPRAZOLE 20 MG CAPSULE PO SCH (06:45)
[2018-02-15] MEDS: ALBUTEROL/IPRATROPIUM 2.5mg-0.5mg/3ml NEB AEROSOL SCH ×4 (07:39→21:01)
[2018-02-15] MEDS: BUDESONIDE INH.SOLN 0.5mg/2ml NEB AEROSOL SCH ×2 (07:39→21:01)
[2018-02-15] MEDS: CALCIUM 600 + VIT D 400 TABLET PO SCH ×2 (08:15→21:44)
[2018-02-15] MEDS: TOLTERODINE 2 MG TABLET PO SCH ×2 (08:15→21:44)
[2018-02-15] MEDS: LUTEIN 20 MG CAPSULE PO SCH (08:15)
[2018-02-15] MEDS: SPIRONOLACTONE 25 MG TABLET PO SCH (08:15)
[2018-02-15] MEDS: POLYETHYL GLYCOL 3350 17gm PACKET PO SCH (08:15)
[2018-02-15] MEDS: FUROSEMIDE 40 MG TABLET PO SCH (08:15)
[2018-02-15] MEDS: MULTI-VITAMIN + MINERAL TABLET PO SCH (08:15)
[2018-02-15] MEDS: SALINE 0.65% NASAL SPRAY 44 ML BOTTLE EA NOSTRIL SCH ×4 (08:17→21:46)
--- NOTE | 2018-02-15 11:08 | Pulmonology Progress Note ---
<Carol Ann Young D - Last Filed: 02/15/18 11:04> Subjective Principal diagnosis: CHF, pleural effusion Interval history: Pt sitting up in chair, states her breathing is a little better today. Still with SOB and cough with sputum. On O2 at 3L per NC. Exam Vital signs: Temperature 97.9 F 02/15/18 07:31 Pulse Rate 66 02/15/18 07:31 Respiratory Rate 16 02/15/18 07:39 Blood Pressure 135/67 02/15/18 07:31 Pulse Oximetry 93 02/15/18 07:39 Inpatient Medications: Generic Name Dose Route Start Last Admin Trade Name Freq PRN Reason Stop Dose Admin Acetaminophen 650 mg 02/09/18 22:22 Tylenol PO QID PRN Discomfort Acetaminophen 1,000 mg 02/10/18 21:00 02/14/18 20:30 Tylenol PO 1,000 mg HS BANDAR Administration Acetaminophen 500 - 1,000 mg 02/09/18 23:08 Tylenol PO BID PRN Pain Hydrocodone Bitart/Acetaminophen 1 tab 02/09/18 23:08 [place] 5/325 PO Q6HR PRN Pain Al Hydroxide/Mg Hydroxide 30 ml 02/10/18 06:55 Maalox Plus PO Q4H PRN Indigestion Albuterol/Ipratropium 3 ml 02/09/18 17:29 02/09/18 17:29 Duoneb AEROSOL 3 ml RTQID PRN Administration Albuterol/Ipratropium 3 ml 02/09/18 19:00 02/15/18 07:39 Duoneb AEROSOL 3 ml RTQID BANDAR Administration Aspirin 81 mg 02/10/18 12:00 02/14/18 11:00 Ecotrin PO 81 mg NOON BANDAR Administration Atorvastatin Calcium 10 mg 02/10/18 21:00 02/14/18 20:31 Lipitor PO 10 mg HS BANDAR Administration Budesonide 0.5 mg 02/09/18 21:00 02/15/18 07:39 Pulmicort Inhalation AEROSOL 0.5 mg BID BANDAR Administration Calcium/Vitamin D 1 tab 02/10/18 09:00 02/15/18 08:15 Caltrate + D PO 1 tab BID BANDAR Administration Cetirizine HCl 10 mg 02/10/18 21:00 02/14/18 20:31 Zyrtec PO 10 mg HS BANDAR Administration Cholecalciferol 2,000 unit 02/10/18 09:00 02/15/18 08:16 Vit. D-3 PO 2,000 unit DAILY BANDAR Administration Furosemide 40 mg 02/10/18 09:00 02/15/18 08:15 Lasix 40 Mg Tab PO 40 mg DAILY BANDAR Administration Guaifenesin/Dextromethorphan 10 ml 02/09/18 22:20 02/14/18 10:56 Robitussin Dm PO 10 ml Q4-6HR PRN Administration Cough /Congestion Lorazepam 0.5 mg 02/09/18 22:20 Ativan PO HS PRN Anxiety Lutein 20 mg 02/10/18 09:00 02/15/18 08:15 PO 20 mg DAILY BANDAR Administration Magnesium Hydroxide 15 - 30 ml 02/09/18 23:08 Mom PO DAILY PRN Constipation Menthol 1 lozenge 02/10/18 06:57 Ricola Sf MM Q2H PRN Cough Multivitamins/Minerals 1 tab 02/10/18 09:00 02/15/18 08:15 Therapeutic - M PO 1 tab DAILY BANDAR Administration Omeprazole 40 mg 02/10/18 06:30 02/15/18 06:45 Prilosec PO 40 mg ACB BANDAR Administration Ondansetron HCl 4 mg 02/09/18 23:08 Zofran Po PO Q8H PRN Nausea Polyethylene Glycol 17 gm 02/10/18 09:00 02/15/18 08:15 Miralax PO 17 gm DAILY BANDAR Administration Potassium Chloride 20 meq 02/12/18 08:00 02/15/18 08:14 Micro-K 10 Meq Capsule PO 20 meq WB BANDAR Administration Sodium Chloride 500 ml 02/10/18 23:53 02/12/18 12:00 Normal Saline IV 500 ml PRN PRN Administration Sodium Chloride 500 ml 02/12/18 12:47 Normal Saline IV PRN PRN Sodium Chloride 2 spray 02/12/18 17:17 02/15/18 08:17 Deep Sea Nasal Moisturizing [place] EA NOSTRIL 2 spray QID BANDAR Administration Sodium Chloride 10 - 80 ml 02/14/18 07:50 02/14/18 12:30 Iv Flush IV 20 ml PRN PRN Administration Flushing Spironolactone 25 mg 02/10/18 09:00 08/21/18 08:15 Aldactone 25 Mg PO 25 mg DAILY BANDAR Administration Tolterodine Tartrate 1 mg 02/10/18 09:00 02/15/18 08:15 Detrol PO 1 mg BID BANDAR Administration Discontinued Medications Generic Name Dose Route Start Last Admin Trade Name Freq PRN Reason Stop Dose Admin Acetazolamide 250 mg 02/10/18 08:00 02/10/18 09:50 Diamox 250 Mg PO 02/10/18 08:01 250 mg O ONE Administration Acetazolamide 500 mg 02/13/18 12:22 02/13/18 12:36 Diamox 500 Mg Sequels PO 02/13/18 12:23 500 mg O ONE Administration Albuterol/Ipratropium 3 ml 02/09/18 19:00 Duoneb AEROSOL RTQID PRN Furosemide 40 mg 02/10/18 09:00 Lasix 40 Mg Tab PO DAILY BANDAR Furosemide 20 mg 02/10/18 17:43 02/10/18 18:44 Lasix 20 Mg/2 Ml IVP 02/10/18 17:44 20 mg O ONE Administration Furosemide 20 mg 02/11/18 11:00 02/12/18 09:21 Lasix 20 Mg/2 Ml IVP Not Given DAILY BANDAR Furosemide 40 mg 02/12/18 14:00 02/12/18 14:02 Lasix 40 Mg/4 Ml IVP 02/12/18 14:01 40 mg O ONE Administration Furosemide 40 mg 02/13/18 14:00 02/13/18 15:33 Lasix 40 Mg/4 Ml IVP 02/13/18 14:01 40 mg O ONE Administration Furosemide 40 mg 02/14/18 11:28 02/14/18 12:26 Lasix 40 Mg/4 Ml IVP 02/14/18 11:29 40 mg O ONE Administration Guaifenesin/Dextromethorphan 10 ml 02/09/18 23:08 Robitussin Dm PO Q6H PRN PRN orders Ampicillin Sodium/Sulbactam 100 mls @ 200 mls/hr 02/09/18 18:00 02/13/18 12: 22 Sodium 3 g/ Sodium Chloride IV Infused Q6H BANDAR Infusion Lorazepam 0.5 mg 02/09/18 23:08 Ativan PO HS PRN anxiety Non-Formulary Medication 1 tab 02/10/18 09:00 Calcium Carb/Vitamin D3/Vit K1 [Viactiv Soft Chew] PO BID [facility] Non-Formulary Medication 10 mg 02/10/18 21:00 Cetirizine Hcl [Zyrtec] PO HS [facility] Non-Formulary Medication 2,000 mg 02/10/18 09:00 Cholecalciferol (Vitamin D3) [Vitamin D3] PO DAILY [facility] Non-Formulary Medication 1 lozenge 02/09/18 23:08 Dextromethorphan Hbr/B-Jhonny [Cepacol Sorethroat-Cough Angela] PO Q2HR PRN Sore throat Non-Formulary Medication 20 mg 02/10/18 09:00 Lutein [Lutein] PO DAILY [facility] Non-Formulary Medication 30 ml 02/09/18 23:08 Mag Hydrox/Aluminum Hyd/Simeth [Alum-Mag Hydroxide-Simeth Liq] PO Q4H PRN Epigastric distress Non-Formulary Medication 1 tab 02/10/18 12:00 Multivitamin [One Daily Multivitamin] PO NOON [facility] Non-Formulary Medication 40 mg 02/10/18 06:30 Omeprazole [Omeprazole] PO ACB [facility] Non-Formulary Medication 1 mg 02/10/18 09:00 Tolterodine Tartrate [Detrol] PO BID [facility] Potassium Chloride 20 meq 02/11/18 12:30 02/11/18 12:37 Micro-K 10 Meq Capsule PO 02/11/18 12:31 20 meq O ONE Administration Potassium Chloride 20 meq 02/11/18 17:30 02/11/18 18:16 Micro-K 10 Meq Capsule PO 02/11/18 17:31 20 meq O ONE Administration Potassium Chloride 10 meq 02/13/18 17:30 02/13/18 17:41 Micro-K 10 Meq Capsule PO 02/13/18 17:31 10 meq O ONE Administration Potassium Chloride 10 meq 02/13/18 15:13 02/13/18 16:00 K-Dur 10 Meq Tablet PO 02/13/18 15:14 10 meq O ONE Administration Potassium Chloride 20 meq 02/14/18 11:29 02/14/18 12:26 K-Dur 20 Meq Tablet PO 02/14/18 11:30 20 meq O ONE Administration Spironolactone 25 mg 02/10/18 09:00 Aldactone 25 Mg PO DAILY [facility] - Constitutional obese, cooperative - Routine HEENT Exam Head: Present: normocephalic, atraumatic Eye: Present: EOMI, PERRL ENT: Present: mucous membranes moist - Routine Neck Exam Present: supple, full ROM, trachea midline - Routine Respiratory Exam Present: decreased breath sounds, crackles. Absent: accessory muscle use, patient mechanically ventilated - Routine Cardiovascular Exam Present: RRR, S1, S2 - Routine Abdominal Exam Present: soft, normoactive bowel sounds - Routine Extremities Exam Present: edema, non tender, full ROM - Routine Back/Spine/Pelvis Exam Back/Spine: Present: kyphosis - Routine Skin Exam Present: intact, dry - Routine Neurological Exam Present: alert, oriented X3, CN II-XII intact - Routine Psychiatric Exam Present: normal affect, normal thought process Results - Laboratory Findings Laboratory: Laboratory Results - last 48 hr 02/14/18 02/14/18 02/15/18 03:41 03:41 03:59 WBC 5.6 RBC 3.90 L Hgb 12.0 Hct 40.9 MCV 104.9 H MCH 30.8 MCHC 29.3 L RDW Std Deviation 56.6 H Plt Count 146 MPV 10.4 Immature Gran % (Auto) 0.2 Neut % (Auto) 64.2 Lymph % (Auto) 21.5 L [place] % (Auto) 10.7 H Eos % (Auto) 3.2 Baso % (Auto) 0.2 Neut # (Auto) 3.6 Lymph # (Auto) 1.2 [place] # (Auto) 0.6 Eos # (Auto) 0.2 Baso # (Auto) 0.0 Abs Immat Gran (auto) 0.01 Turbidity < 20 < 20 Sodium 141 141 Potassium 4.0 4.1 Chloride 93 L 95 L Carbon Dioxide 38 H 39 H Anion Gap 10 7 BUN 25.0 H 24.0 H Creatinine 0.9 D 0.8 Estimated Creat Clear 38 38 GFR Calculation 59 68 BUN/Creatinine Ratio 28 H 30 H Glucose 106 101 Calculated Osmolality 275 275 Calcium 9.0 9.7 Icterus Index < 2 < 2 Specimen Hemolysis 27 H < 15 - Diagnostic Findings Chest x-ray: pending Assessment and Plan (1) Acute on chronic respiratory failure with hypoxemia Status: Chronic Current Visit: No (2) Atelectasis Status: Acute Current Visit: No (3) Pleural effusion Status: Acute Current Visit: Yes (4) CHF (congestive heart failure) Status: Chronic Current Visit: No - Assessment and Plan Plan: Pt currently on O2 at 3L per NC, sherry Bipap 14, 15/5, 40% at noc, CXR yesterday still with bilateral effusions and atelectasis, worsened on R, repeat today. Continue on diuresis, received extra dose of lasix yesterday. If not improved will proceed with thoracentesis. I/O -10L, Cr 0.8. Continue BT's with pulmicort BID, A/A QID with acapella. Chronic Respiratory Failure with ABG 7.32/82/73, would recommend continuing bipap at detention to decrease her risk of hospitalization and . - Time Spent With Patient Total time spent is greater than 50% in coordination of care (as documented) at patient's floor/unit and/or counseling patient: less than 15 minutes <Marcelo More - Last Filed: 02/15/18 13:16> Exam Vital signs: Temperature 97.9 F 02/15/18 07:31 Pulse Rate 66 02/15/18 07:31 Respiratory Rate 22 02/15/18 11:39 Blood Pressure 135/67 02/15/18 07:31 Pulse Oximetry 93 02/15/18 07:39 Inpatient Medications: Generic Name Dose Route Start Last Admin Trade Name Freq PRN Reason Stop Dose Admin Acetaminophen 650 mg 02/09/18 22:22 Tylenol PO QID PRN Discomfort Acetaminophen 1,000 mg 02/10/18 21:00 02/14/18 20:30 Tylenol PO 1,000 mg HS BANDAR Administration Acetaminophen 500 - 1,000 mg 02/09/18 23:08 Tylenol PO BID PRN Pain Hydrocodone Bitart/Acetaminophen 1 tab 02/09/18 23:08 [place] 5/325 PO Q6HR PRN Pain Al Hydroxide/Mg Hydroxide 30 ml 02/10/18 06:55 Maalox Plus PO Q4H PRN Indigestion Albuterol/Ipratropium 3 ml 02/09/18 17:29 02/09/18 17:29 Duoneb AEROSOL 3 ml RTQID PRN Administration Albuterol/Ipratropium 3 ml 02/09/18 19:00 02/15/18 11:38 Duoneb AEROSOL 3 ml RTQID BANDAR Administration Aspirin 81 mg 02/10/18 12:00 02/15/18 11:31 Ecotrin PO 81 mg NOON BANDAR Administration Atorvastatin Calcium 10 mg 02/10/18 21:00 02/14/18 20:31 Lipitor PO 10 mg HS BANDAR Administration Budesonide 0.5 mg 02/09/18 21:00 02/15/18 07:39 Pulmicort Inhalation AEROSOL 0.5 mg BID BANDAR Administration Calcium/Vitamin D 1 tab 02/10/18 09:00 02/15/18 08:15 Caltrate + D PO 1 tab BID BANDAR Administration Cetirizine HCl 10 mg 02/10/18 21:00 02/14/18 20:31 Zyrtec PO 10 mg HS BANDAR Administration Cholecalciferol 2,000 unit 02/10/18 09:00 02/15/18 08:16 Vit. D-3 PO 2,000 unit DAILY BANDAR Administration Furosemide 40 mg 02/10/18 09:00 02/15/18 08:15 Lasix 40 Mg Tab PO 40 mg DAILY BANDAR Administration Guaifenesin/Dextromethorphan 10 ml 02/09/18 22:20 02/14/18 10:56 Robitussin Dm PO 10 ml Q4-6HR PRN Administration Cough /Congestion Lorazepam 0.5 mg 02/09/18 22:20 Ativan PO HS PRN Anxiety Lutein 20 mg 02/10/18 09:00 02/15/18 08:15 PO 20 mg DAILY BANDAR Administration Magnesium Hydroxide 15 - 30 ml 02/09/18 23:08 Mom PO DAILY PRN Constipation Menthol 1 lozenge 02/10/18 06:57 Ricola Sf MM Q2H PRN Cough Multivitamins/Minerals 1 tab 02/10/18 09:00 02/15/18 08:15 Therapeutic - M PO 1 tab DAILY BANDAR Administration Omeprazole 40 mg 02/10/18 06:30 02/15/18 06:45 Prilosec PO 40 mg ACB BANDAR Administration Ondansetron HCl 4 mg 02/09/18 23:08 Zofran Po PO Q8H PRN Nausea Polyethylene Glycol 17 gm 02/10/18 09:00 02/15/18 08:15 Miralax PO 17 gm DAILY BANDAR Administration Potassium Chloride 20 meq 02/12/18 08:00 02/15/18 08:14 Micro-K 10 Meq Capsule PO 20 meq WB BANDAR Administration Sodium Chloride 500 ml 02/10/18 23:53 02/12/18 12:00 Normal Saline IV 500 ml PRN PRN Administration Sodium Chloride 500 ml 02/12/18 12:47 Normal Saline IV PRN PRN Sodium Chloride 2 spray 02/12/18 17:17 02/15/18 13:13 Deep Sea Nasal Moisturizing [place] EA NOSTRIL 2 spray QID BANDAR Administration Sodium Chloride 10 - 80 ml 02/14/18 07:50 02/14/18 12:30 Iv Flush IV 20 ml PRN PRN Administration Flushing Spironolactone 25 mg 02/10/18 09:00 02/15/18 08:15 Aldactone 25 Mg PO 25 mg DAILY BANDAR Administration Tolterodine Tartrate 1 mg 02/10/18 09:00 02/15/18 08:15 Detrol PO 1 mg BID BANDAR Administration Discontinued Medications Generic Name Dose Route Start Last Admin Trade Name Freq PRN Reason Stop Dose Admin Acetazolamide 250 mg 02/10/18 08:00 02/10/18 09:50 Diamox 250 Mg PO 02/10/18 08:01 250 mg O ONE Administration Acetazolamide 500 mg 02/13/18 12:22 02/13/18 12:36 Diamox 500 Mg Sequels PO 02/13/18 12:23 500 mg O ONE Administration Albuterol/Ipratropium 3 ml 02/09/18 19:00 Duoneb AEROSOL RTQID PRN Furosemide 40 mg 02/10/18 09:00 Lasix 40 Mg Tab PO DAILY BANDAR Furosemide 20 mg 02/10/18 17:43 02/10/18 18:44 Lasix 20 Mg/2 Ml IVP 02/10/18 17:44 20 mg O ONE Administration Furosemide 20 mg 02/11/18 11:00 02/12/18 09:21 Lasix 20 Mg/2 Ml IVP Not Given DAILY BANDAR Furosemide 40 mg 02/12/18 14:00 02/12/18 14:02 Lasix 40 Mg/4 Ml IVP 02/12/18 14:01 40 mg O ONE Administration Furosemide 40 mg 02/13/18 14:00 02/13/18 15:33 Lasix 40 Mg/4 Ml IVP 02/13/18 14:01 40 mg O ONE Administration Furosemide 40 mg 02/14/18 11:28 08/20/18 12:26 Lasix 40 Mg/4 Ml IVP 02/14/18 11:29 40 mg O ONE Administration Guaifenesin/Dextromethorphan 10 ml 02/09/18 23:08 Robitussin Dm PO Q6H PRN PRN orders Ampicillin Sodium/Sulbactam 100 mls @ 200 mls/hr 02/09/18 18:00 02/13/18 12: 22 Sodium 3 g/ Sodium Chloride IV Infused Q6H BANDAR Infusion Lorazepam 0.5 mg 02/09/18 23:08 Ativan PO HS PRN anxiety Non-Formulary Medication 1 tab 02/10/18 09:00 Calcium Carb/Vitamin D3/Vit K1 [Viactiv Soft Chew] PO BID [facility] Non-Formulary Medication 10 mg 02/10/18 21:00 Cetirizine Hcl [Zyrtec] PO HS [facility] Non-Formulary Medication 2,000 mg 02/10/18 09:00 Cholecalciferol (Vitamin D3) [Vitamin D3] PO DAILY [facility] Non-Formulary Medication 1 lozenge 02/09/18 23:08 Dextromethorphan Hbr/B-Jhonny [Cepacol Sorethroat-Cough Angela] PO Q2HR PRN Sore throat Non-Formulary Medication 20 mg 02/10/18 09:00 Lutein [Lutein] PO DAILY [facility] Non-Formulary Medication 30 ml 02/09/18 23:08 Mag Hydrox/Aluminum Hyd/Simeth [Alum-Mag Hydroxide-Simeth Liq] PO Q4H PRN Epigastric distress Non-Formulary Medication 1 tab 02/10/18 12:00 Multivitamin [One Daily Multivitamin] PO NOON [facility] Non-Formulary Medication 40 mg 02/10/18 06:30 Omeprazole [Omeprazole] PO ACB [facility] Non-Formulary Medication 1 mg 02/10/18 09:00 Tolterodine Tartrate [Detrol] PO BID [facility] Potassium Chloride 20 meq 02/11/18 12:30 02/11/18 12:37 Micro-K 10 Meq Capsule PO 02/11/18 12:31 20 meq O ONE Administration Potassium Chloride 20 meq 02/11/18 17:30 02/11/18 18:16 Micro-K 10 Meq Capsule PO 02/11/18 17:31 20 meq O ONE Administration Potassium Chloride 10 meq 02/13/18 17:30 02/13/18 17:41 Micro-K 10 Meq Capsule PO 02/13/18 17:31 10 meq O ONE Administration Potassium Chloride 10 meq 02/13/18 15:13 02/13/18 16:00 K-Dur 10 Meq Tablet PO 02/13/18 15:14 10 meq O ONE Administration Potassium Chloride 20 meq 02/14/18 11:29 02/14/18 12:26 K-Dur 20 Meq Tablet PO 02/14/18 11:30 20 meq O ONE Administration Spironolactone 25 mg 02/10/18 09:00 Aldactone 25 Mg PO DAILY BANDAR Results - Laboratory Findings Laboratory: Laboratory Results - last 48 hr 02/14/18 02/14/18 02/15/18 03:41 03:41 03:59 WBC 5.6 RBC 3.90 L Hgb 12.0 Hct 40.9 MCV 104.9 H MCH 30.8 MCHC 29.3 L RDW Std Deviation 56.6 H Plt Count 146 MPV 10.4 Immature Gran % (Auto) 0.2 Neut % (Auto) 64.2 Lymph % (Auto) 21.5 L [place] % (Auto) 10.7 H Eos % (Auto) 3.2 Baso % (Auto) 0.2 Neut # (Auto) 3.6 Lymph # (Auto) 1.2 [place] # (Auto) 0.6 Eos # (Auto) 0.2 Baso # (Auto) 0.0 Abs Immat Gran (auto) 0.01 Turbidity < 20 < 20 Sodium 141 141 Potassium 4.0 4.1 Chloride 93 L 95 L Carbon Dioxide 38 H 39 H Anion Gap 10 7 BUN 25.0 H 24.0 H Creatinine 0.9 D 0.8 Estimated Creat Clear 38 38 GFR Calculation 59 68 BUN/Creatinine Ratio 28 H 30 H Glucose 106 101 Calculated Osmolality 275 275 Calcium 9.0 9.7 Icterus Index < 2 < 2 Specimen Hemolysis 27 H < 15 Assessment and Plan (1) Pleural effusion Status: Acute Assessment and plan: refractory to diuresis. Plan US guided thoracentesis Current Visit: Yes (2) Atelectasis Status: Acute Current Visit: No (3) Acute and chronic respiratory failure with hypercapnia Status: Acute Current Visit: Yes - Time Spent With Patient Total time spent is greater than 50% in coordination of care (as documented) at patient's floor/unit and/or counseling patient:
[2018-02-15] MEDS: ASPIRIN *EC* 81 MG TABLET PO SCH (11:31)
--- NOTE | 2018-02-15 11:48 | XRay Report ---
Indication: effusion PROCEDURE: XR chest 1V: Encounter: Initial Comparison: February 14, 2018 Findings: Stable moderate left and small right pleural effusions with unchanged lower lobe airspace disease. Persistent edema without significant change. No gross pneumothorax. Heart size and mediastinal contours are unchanged left pacemaker. Impression: Stable pleural effusions and moderate congestive failure. .
--- NOTE | 2018-02-15 12:05 | Progress Note ---
- Date 02/15/18 Subjective: Ivonne is doing about the same today. She doesn't feel more short of breath compared to usual. She continues to have a cough, but drinking coffee helps. She denies chest pain. She denies feeling dizzy. She denies abdominal pain or nausea and has had a good appetite. Objective Vital signs: Temperature 97.9 F 02/15/18 07:31 Pulse Rate 66 02/15/18 07:31 Respiratory Rate 22 02/15/18 11:39 Blood Pressure 135/67 02/15/18 07:31 Pulse Oximetry 93 02/15/18 07:39 Height/Weight/BMI: Height 1.63 m Weight 74.2 kg Body Mass Index 27.9 - Constitutional Present: no acute distress, well nourished, well developed - Routine HEENT Exam Head: Present: normocephalic Eye: Absent: conjunctival icterus, scleral injection - Routine Respiratory Exam Present: decreased breath sounds Comments: bases - Routine Cardiovascular Exam Present: RRR, S1, S2, murmur - Routine Abdominal Exam Present: soft, normoactive bowel sounds, non distended, non tender - Routine Extremities Exam Present: no edema - Routine Skin Exam Present: intact, dry, warm - Routine Neurological Exam Present: alert, normal speech - Routine Psychiatric Exam Present: normal affect, normal thought process, cooperative Results - Labs CBC & Chem 7: 02/14/18 03:41 02/15/18 03:59 Microbiology Results: Microbiology 02/09/18 19:07 Peripheral/Iv Start Blood Culture - Final No Growth After 5 Days 02/09/18 19:08 Peripheral/Iv Start Blood Culture - Final No Growth After 5 Days 02/11/18 14:07 Sputum, Cf Patient Gram Stain - Final 02/11/18 14:07 Sputum, Cf Patient Sputum Culture - Final 02/10/18 21:10 Sputum, Expectorated Gram Stain - Final 02/10/18 21:10 Sputum, Expectorated Sputum Culture - Final Assessment and Plan (1) Acute on chronic respiratory failure with hypoxemia Current visit: No Status: Chronic (2) Chronic hypercapnic respiratory failure Current visit: Yes Status: Acute Assessment and Plan: Assessment Acute (on chronic) hypoxic respiratory failure Probable aspiration pneumonia Pleural effusions - Moderate left and small right CHF - acute on chronic diastolic/valvular Chronic hypercarbic respiratory failure with elevated HCO3 COPD with chronic hypoxia 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 Also noted possible worsening of CHF - may still need additional IV diuresis. BMP stable, CO2 39 - chronic. Continue BiPAP HS - pulm recommending home vent to mask. D/W CM. DVT Prophylaxis: SCD's Resuscitation Status: Do Not Resuscitate - Time spent with patient Time with patient PN: 25 minutes - Physician Narrative Physician: Eddie Hinojosa MD Narrative: Date: 02/15/18 Time: 1950 Have independently interviewed and examined pt. Chart reviewed. Case discussed with Pulm and my CLINICAL SPECIALIST VASCULAR. Care plan developed with my supervision; agree with above. Doing fair this evening. Feels down as was hoping to be breathing much better post thoracentesis. Overall, breathing about the same. Lungs: blunted left basilar lung sound, but interval improvement from prior days. CV: regular AB: soft nt/nd MSE: awake alert Plan: Recheck CXR in am to check for reaccumulation of plural fluid. Continue with supportive respiratory care. Worry not much more gains to be made with her pulmonary status. Hospital Course Summary Disclaimer: The visit summary below is not to be considered part of the above Progress Note. Hospital Course: 02/09/18 Admit, IP given her significant hypoxia. She desaturated to 60% on arrival as her portable oxygen ran out enroute. Stay expected to exceed 2 midnights given her acute hypoxic resp failure and comorbidities listed above. CBC, CMP, BNP, lactate, procal, BC x2. DuoNeb, acapella and O2 titration to keep sats >90%. On 3L home O2. Start Unasyn for probable aspiration pneumonia. Weight is stable compared to previous dismissal weight. Will hold off on decision to diurese until labs are resulted. I&Os and daily weights. SCD's for DVT ppx. Omeprazole for GI ppx and GERD DNR 02/10/18 Day 2 Unasyn for aspiration PNA coverage. Dr More saw pt and recommends gentle diureses, repeat CXR and home vent. Give Lasix 20mg IV now. Dr. More/ will get the home vent set up. Requiring 5 L 02 (Home requirements=3L). Modified barium swallow performed d/t concern by speech therapy of aspiration. Fortunately no aspiration was seen. Speech rec soft diet and thin liquids. 02/11/18 Continue with Unasyn for aspiration coverage - Day 3. Will continue with Lasix 20mg IV daily to help motivate fluid - CXR this am showing little change. Replace potassium - with give 20mEg x1 today, continuing 20mEq with breakfast tomorrow. Tolerated BiPAP well last night - pulm working on outpatient vent for patient. 02/12/18 Continue with Unasyn for aspiration coverage - Day 4. Will give Lasix 40mg x1 this afternoon to help motivate fluid. Weight up from admission. Encourage therapy to improve functional status. Encourage activities. 02/13/18 Can stop Unasyn - did have 5 day course - not seeing obvious aspiration pneumonia, but was highly suspected. Repeat Lasix 40mg x1 this afternoon to help motivate fluid. CXR not showing much change. Diamox 500mg x1 at noon. Extra KCl this evening. Encourage continued BiPAP use at night - patient tolerating well. 02/14/18 Lasix 40 mg IV x1 again today (cont oral Lasix and spironolactone). Repeat CXR in am -- per pulm, will proceed with thoracentesis if effusion is not improved. 02/15/18 OP DAY: Left thoracentesis D/W Carol Ann Landon APRN -- likely proceed with thoracentesis as repeat CXR shows essentially no change in effusions. Also noted possible worsening of CHF - may still need additional IV diuresis. BMP stable, CO2 39 - chronic. Continue BiPAP HS - pulm recommending home vent to mask. D/W SABINE.
--- NOTE | 2018-02-15 16:31 | Ultrasound Report ---
Indication: CHRISTIANO FOR THORACENTESIS PROCEDURE: US chest: Encounter: Initial Comparison: Chest x-ray from today Technique/findings/ Impression: Grayscale and color Doppler sonographic imaging of the left and right chest was performed to evaluate for thoracentesis access for Dr. More. Imaging shows a small to moderate amount of pleural fluid bilaterally. .
--- NOTE | 2018-02-15 16:54 | Procedure Note ---
Date of procedure: 02/15/18 Pre-op diagnosis: pleural effusion Post-op diagnosis: same Procedure: US guided thoracentesis - LEFT TIME OUT: completed REASON: pleural effusion CONSENT: signed DESCRIPTION: With the patient seated the left posterior hemithorax was imaged with US. A moderate pocket of pleural fluid was noted and the site was marked for thoracentesis. The left posterior hemithorax was prepped with chloraprep. Sterile dressings were placed over the site. Lidocaine was used to anesthetize the area. A thoracentesis catheter was introduced into the left pleural space and 300 ML serosanguineous fluid was drained from the left side. The fluid was sent for appropriate studies. The catheter was removed and sterile dressings were placed over the site. IMPRESSIONS: successful drainage of left pleural effusion. Surgeon: Marcelo More MD Disposition: floor
[2018-02-15] MEDS: ATORVASTATIN 10 MG TABLET PO SCH (21:44)
[2018-02-15] MEDS: CETIRIZINE 10 MG TABLET PO SCH (21:44)
[2018-02-15] MEDS: ACETAMINOPHEN 500 MG TABLET PO SCH (21:45)
[2018-02-16] MEDS: OMEPRAZOLE 20 MG CAPSULE PO SCH (06:42)
[2018-02-16] MEDS: ALBUTEROL/IPRATROPIUM 2.5mg-0.5mg/3ml NEB AEROSOL SCH ×4 (06:50→20:10)
[2018-02-16] MEDS: BUDESONIDE INH.SOLN 0.5mg/2ml NEB AEROSOL SCH ×2 (06:50→20:10)
--- NOTE | 2018-02-16 08:12 | XRay Report ---
Indication: pleural effusion after left thoracentesis PROCEDURE: XR chest 1V: Encounter: Initial Comparison: February 15, 2018 at 1123 Findings: Interval thoracentesis with decrease in left pleural fluid. Right effusion is slightly larger. Lungs are hypoinflated. No pneumothorax. Heart size and mediastinal contours are stable. Impression: No pneumothorax. .
--- NOTE | 2018-02-16 09:16 | Pulmonology Progress Note ---
Subjective Principal diagnosis: CHF, pleural effusion Interval history: Pt sitting up in chair, states her breathing is better today. Still cough with sputum. On O2 at 3L per [place]. Exam Vital signs: Temperature 97.5 F 02/16/18 08:03 Pulse Rate 70 02/16/18 08:03 Respiratory Rate 22 02/16/18 08:03 Blood Pressure 119/66 02/16/18 08:03 Pulse Oximetry 95 02/16/18 08:03 Inpatient Medications: Generic Name Dose Route Start Last Admin Trade Name Freq PRN Reason Stop Dose Admin Acetaminophen 650 mg 02/09/18 22:22 Tylenol PO QID PRN Discomfort Acetaminophen 1,000 mg 02/10/18 21:00 02/15/18 21:45 Tylenol PO 1,000 mg HS BANDAR Administration Acetaminophen 500 - 1,000 mg 02/09/18 23:08 Tylenol PO BID PRN Pain Hydrocodone Bitart/Acetaminophen 1 tab 02/09/18 23:08 02/15/18 13:40 [place] 5/325 PO 1 tab Q6HR PRN Administration Pain Al Hydroxide/Mg Hydroxide 30 ml 02/10/18 06:55 Maalox Plus PO Q4H PRN Indigestion Albuterol/Ipratropium 3 ml 02/09/18 17:29 02/09/18 17:29 Duoneb AEROSOL 3 ml RTQID PRN Administration Albuterol/Ipratropium 3 ml 02/09/18 19:00 02/16/18 06:50 Duoneb AEROSOL 3 ml RTQID BANDAR Administration Aspirin 81 mg 02/10/18 12:00 02/15/18 11:31 Ecotrin PO 81 mg NOON BANDAR Administration Atorvastatin Calcium 10 mg 02/10/18 21:00 02/15/18 21:44 Lipitor PO 10 mg HS BANDAR Administration Budesonide 0.5 mg 02/09/18 21:00 02/16/18 06:50 Pulmicort Inhalation AEROSOL 0.5 mg BID BANDRA Administration Calcium/Vitamin D 1 tab 02/10/18 09:00 02/15/18 21:44 Caltrate + D PO 1 tab BID BANDAR Administration Cetirizine HCl 10 mg 02/10/18 21:00 02/15/18 21:44 Zyrtec PO 10 mg HS BANDAR Administration Cholecalciferol 2,000 unit 02/10/18 09:00 02/15/18 08:16 Vit. D-3 PO 2,000 unit DAILY BANDAR Administration Furosemide 40 mg 02/10/18 09:00 02/15/18 08:15 Lasix 40 Mg Tab PO 40 mg DAILY BANDAR Administration Guaifenesin/Dextromethorphan 10 ml 02/09/18 22:20 02/14/18 10:56 Robitussin Dm PO 10 ml Q4-6HR PRN Administration Cough /Congestion Lorazepam 0.5 mg 02/09/18 22:20 Ativan PO HS PRN Anxiety Lutein 20 mg 02/10/18 09:00 02/15/18 08:15 PO 20 mg DAILY BANDAR Administration Magnesium Hydroxide 15 - 30 ml 02/09/18 23:08 Mom PO DAILY PRN Constipation Menthol 1 lozenge 02/10/18 06:57 Ricola Sf MM Q2H PRN Cough Multivitamins/Minerals 1 tab 02/10/18 09:00 02/15/18 08:15 Therapeutic - M PO 1 tab DAILY BANDAR Administration Omeprazole 40 mg 02/10/18 06:30 02/16/18 06:42 Prilosec PO 40 mg ACB BANDAR Administration Ondansetron HCl 4 mg 02/09/18 23:08 Zofran Po PO Q8H PRN Nausea Polyethylene Glycol 17 gm 02/10/18 09:00 02/15/18 08:15 Miralax PO 17 gm DAILY BANDAR Administration Potassium Chloride 20 meq 02/12/18 08:00 02/15/18 08:14 Micro-K 10 Meq Capsule PO 20 meq WB BANDAR Administration Sodium Chloride 500 ml 02/10/18 23:53 02/12/18 12:00 Normal Saline IV 500 ml PRN PRN Administration Sodium Chloride 500 ml 02/12/18 12:47 Normal Saline IV PRN PRN Sodium Chloride 2 spray 02/12/18 17:17 02/15/18 21:46 [place] Nasal Moisturizing [place] EA NOSTRIL 2 spray QID BANDAR Administration Sodium Chloride 10 - 80 ml 02/14/18 07:50 02/14/18 12:30 Iv Flush IV 20 ml PRN PRN Administration Flushing Spironolactone 25 mg 02/10/18 09:00 02/15/18 08:15 Aldactone 25 Mg PO 25 mg DAILY BANDAR Administration Tolterodine Tartrate 1 mg 02/10/18 09:00 02/15/18 21:44 Detrol PO 1 mg BID BANDAR Administration Discontinued Medications Generic Name Dose Route Start Last Admin Trade Name Erick PRN Reason Stop Dose Admin Acetazolamide 250 mg 02/10/18 08:00 02/10/18 09:50 Diamox 250 Mg PO 02/10/18 08:01 250 mg O ONE Administration Acetazolamide 500 mg 02/13/18 12:22 02/13/18 12:36 Diamox 500 Mg Sequels PO 02/13/18 12:23 500 mg O ONE Administration Albuterol/Ipratropium 3 ml 02/09/18 19:00 Duoneb AEROSOL RTQID PRN Furosemide 40 mg 02/10/18 09:00 Lasix 40 Mg Tab PO DAILY BANDAR Furosemide 20 mg 02/10/18 17:43 02/10/18 18:44 Lasix 20 Mg/2 Ml IVP 02/10/18 17:44 20 mg O ONE Administration Furosemide 20 mg 02/11/18 11:00 02/12/18 09:21 Lasix 20 Mg/2 Ml IVP Not Given DAILY BANDAR Furosemide 40 mg 02/12/18 14:00 02/12/18 14:02 Lasix 40 Mg/4 Ml IVP 02/12/18 14:01 40 mg O ONE Administration Furosemide 40 mg 02/13/18 14:00 02/13/18 15:33 Lasix 40 Mg/4 Ml IVP 02/13/18 14:01 40 mg O ONE Administration Furosemide 40 mg 02/14/18 11:28 02/14/18 12:26 Lasix 40 Mg/4 Ml IVP 02/14/18 11:29 40 mg O ONE Administration Guaifenesin/Dextromethorphan 10 ml 02/09/18 23:08 Robitussin Dm PO Q6H PRN PRN orders Ampicillin Sodium/Sulbactam 100 mls @ 200 mls/hr 02/09/18 18:00 02/13/18 12: 22 Sodium 3 g/ Sodium Chloride IV Infused Q6H BANDAR Infusion Lorazepam 0.5 mg 02/09/18 23:08 Ativan PO HS PRN anxiety Non-Formulary Medication 1 tab 02/10/18 09:00 Calcium Carb/Vitamin D3/Vit K1 [Viactiv Soft Chew] PO BID BANDAR Non-Formulary Medication 10 mg 08/16/18 21:00 Cetirizine Hcl [Zyrtec] PO HS [facility] Non-Formulary Medication 2,000 mg 02/10/18 09:00 Cholecalciferol (Vitamin D3) [Vitamin D3] PO DAILY [facility] Non-Formulary Medication 1 lozenge 02/09/18 23:08 Dextromethorphan Hbr/B-Jhonny [Cepacol Sorethroat-Cough Angela] PO Q2HR PRN Sore throat Non-Formulary Medication 20 mg 02/10/18 09:00 Lutein [Lutein] PO DAILY [facility] Non-Formulary Medication 30 ml 02/09/18 23:08 Mag Hydrox/Aluminum Hyd/Simeth [Alum-Mag Hydroxide-Simeth Liq] PO Q4H PRN Epigastric distress Non-Formulary Medication 1 tab 02/10/18 12:00 Multivitamin [One Daily Multivitamin] PO NOON [facility] Non-Formulary Medication 40 mg 02/10/18 06:30 Omeprazole [Omeprazole] PO ACB [facility] Non-Formulary Medication 1 mg 02/10/18 09:00 Tolterodine Tartrate [Detrol] PO BID [facility] Potassium Chloride 20 meq 02/11/18 12:30 02/11/18 12:37 Micro-K 10 Meq Capsule PO 02/11/18 12:31 20 meq O ONE Administration Potassium Chloride 20 meq 02/11/18 17:30 02/11/18 18:16 Micro-K 10 Meq Capsule PO 02/11/18 17:31 20 meq O ONE Administration Potassium Chloride 10 meq 02/13/18 17:30 02/13/18 17:41 Micro-K 10 Meq Capsule PO 02/13/18 17:31 10 meq O ONE Administration Potassium Chloride 10 meq 02/13/18 15:13 02/13/18 16:00 K-Dur 10 Meq Tablet PO 02/13/18 15:14 10 meq O ONE Administration Potassium Chloride 20 meq 02/14/18 11:29 02/14/18 12:26 K-Dur 20 Meq Tablet PO 02/14/18 11:30 20 meq O ONE Administration Spironolactone 25 mg 02/10/18 09:00 Aldactone 25 Mg PO DAILY [facility] - Constitutional no acute distress, obese - Routine HEENT Exam Head: Present: normocephalic, atraumatic Eye: Present: EOMI, PERRL ENT: Present: mucous membranes moist - Routine Neck Exam Present: supple, full ROM, trachea midline - Routine Respiratory Exam Present: accessory muscle use, decreased breath sounds - Routine Cardiovascular Exam Present: RRR, S1, S2 - Routine Abdominal Exam Present: soft, normoactive bowel sounds - Routine Extremities Exam Present: non tender, full ROM - Routine Back/Spine/Pelvis Exam Back/Spine: Present: full ROM, kyphosis - Routine Skin Exam Present: intact, dry - Routine Neurological Exam Present: alert, oriented X3, CN II-XII intact Results - Laboratory Findings Laboratory: Laboratory Results - last 48 hr 02/15/18 02/16/18 02/16/18 03:59 04:28 04:28 WBC 5.6 RBC 3.79 L Hgb 11.4 L Hct 39.1 MCV 103.2 H MCH 30.1 MCHC 29.2 L RDW Std Deviation 54.9 H Plt Count 141 MPV 10.5 Immature Gran % (Auto) 0.2 Neut % (Auto) 67.1 H Lymph % (Auto) 21.1 L [place] % (Auto) 8.0 Eos % (Auto) 3.4 Baso % (Auto) 0.2 Neut # (Auto) 3.8 Lymph # (Auto) 1.2 [place] # (Auto) 0.5 Eos # (Auto) 0.2 Baso # (Auto) 0.0 Abs Immat Gran (auto) 0.01 Turbidity < 20 < 20 Sodium 141 141 Potassium 4.1 4.5 Chloride 95 L 96 L Carbon Dioxide 39 H 38 H Anion Gap 7 7 BUN 24.0 H 25.0 H Creatinine 0.8 0.7 Estimated Creat Clear 38 38 GFR Calculation 68 79 BUN/Creatinine Ratio 30 H 36 H Glucose 101 97 Calculated Osmolality 275 275 Calcium 9.7 9.2 Icterus Index < 2 < 2 Specimen Hemolysis < 15 42 H - Diagnostic Findings Chest x-ray: image reviewed (Slightly improved bilateral effusions with continued atelectasis) Assessment and Plan (1) Acute on chronic respiratory failure with hypoxemia Status: Chronic Assessment and plan: Pt currently on O2 at 3L per [place], sherry Bipap 14, 15/5, 40% at [facility]. Will require bipap at detention for chronic hypercapnic failure for prevention of exacerbation, hospital readmission and even . Current Visit: No (2) Atelectasis Status: Acute Assessment and plan: On BT's with A/A and acapella, continue. CXR with slight improvement. Current Visit: No (3) Pleural effusion Status: Acute Assessment and plan: s/p L thoracentesis 02/15 with 300ml out, on diuresis with lasix and aldactone. Pleural fluid stain NTD, awaiting further culture, fluid testing still pending. CXR today with slightly improved bilateral effusions. Current Visit: Yes (4) CHF (congestive heart failure) Status: Chronic Current Visit: No - Time Spent With Patient Total time spent is greater than 50% in coordination of care (as documented) at patient's floor/unit and/or counseling patient: less than 15 minutes
--- NOTE | 2018-02-16 09:21 | XRay Report ---
Indication: F/U thoracentesis PROCEDURE: XR chest 1V: Encounter: Initial Comparison: February 15, 2018 Findings: Decreased pleural effusions with improving aeration of the right lung. Persistent bilateral infiltrates and edema. No pneumothorax. Heart size and mediastinal contours are stable. Left pacemaker. Impression: Decreasing pleural effusions. .
[2018-02-16] MEDS: CALCIUM 600 + VIT D 400 TABLET PO SCH ×2 (09:52→20:53)
[2018-02-16] MEDS: FUROSEMIDE 40 MG TABLET PO SCH (09:53)
[2018-02-16] MEDS: SPIRONOLACTONE 25 MG TABLET PO SCH (09:54)
[2018-02-16] MEDS: MULTI-VITAMIN + MINERAL TABLET PO SCH (09:55)
[2018-02-16] MEDS: TOLTERODINE 2 MG TABLET PO SCH ×2 (09:55→20:54)
[2018-02-16] MEDS: LUTEIN 20 MG CAPSULE PO SCH (09:55)
[2018-02-16] MEDS: POLYETHYL GLYCOL 3350 17gm PACKET PO SCH (09:58)
[2018-02-16] MEDS: SALINE 0.65% NASAL SPRAY 44 ML BOTTLE EA NOSTRIL SCH ×4 (09:58→20:54)
--- NOTE | 2018-02-16 12:42 | Progress Note ---
- Date 02/16/18 Subjective: Ivonne feels the same today -- chronically short of breath with a chronic cough with white sputum production. She denies any weakness or dizziness. No chest pain. NO abd pain or GI complaints and her appetite has been good. Objective Vital signs: Temperature 97.5 F 02/16/18 08:03 Pulse Rate 70 02/16/18 08:03 Respiratory Rate 22 02/16/18 10:29 Blood Pressure 119/66 02/16/18 08:03 Pulse Oximetry 95 02/16/18 10:29 Height/Weight/BMI: Height 1.63 m Weight 74.2 kg Body Mass Index 27.9 - Constitutional Present: no acute distress, well nourished, well developed - Routine HEENT Exam Head: Present: normocephalic Eye: Present: PERRL. Absent: conjunctival icterus, scleral injection ENT: Present: oropharynx clear - Routine Respiratory Exam Present: decreased breath sounds Comments: improved air movement to left - Routine Cardiovascular Exam Present: RRR, S1, S2 - Routine Abdominal Exam Present: soft, normoactive bowel sounds, non distended, non tender - Routine Extremities Exam Present: no edema - Routine Musculoskeletal Exam Musculoskeletal: Present: moving extremities well - Routine Skin Exam Present: intact, dry, warm - Routine Neurological Exam Present: alert, oriented X3, normal speech - Routine Psychiatric Exam Present: normal affect, normal thought process, cooperative Results - Labs CBC & Chem 7: 02/16/18 04:28 02/16/18 04:28 Microbiology Results: Microbiology 02/15/18 16:50 Pleural Fluid Gram Stain - Final 02/15/18 16:50 Pleural Fluid Body Fluid Culture - Preliminary Culture Initiated - Results Pending 02/09/18 19:07 Peripheral/Iv Start Blood Culture - Final No Growth After 5 Days 02/09/18 19:08 Peripheral/Iv Start Blood Culture - Final No Growth After 5 Days 02/11/18 14:07 Sputum, Cf Patient Gram Stain - Final 02/11/18 14:07 Sputum, Cf Patient Sputum Culture - Final 02/10/18 21:10 Sputum, Expectorated Gram Stain - Final 02/10/18 21:10 Sputum, Expectorated Sputum Culture - Final Assessment and Plan (1) Acute on chronic respiratory failure with hypoxemia Current visit: No Status: Chronic (2) Chronic hypercapnic respiratory failure Current visit: Yes Status: Acute Assessment and Plan: Assessment Acute (on chronic) hypoxic respiratory failure Probable aspiration pneumonia Pleural effusions - Moderate left and small right - s/p thoracentesis on with 300 mL out. CHF - acute on chronic diastolic/valvular Chronic hypercarbic respiratory failure with elevated HCO3 COPD with chronic hypoxia Restrictive lung disease secondary to kyphosis Tricuspid regurgitation/severe pulmonary hypertension/concentric LVH Venous stasis of the lower extremities Osteoporosis Hypertension Osteoarthritis History of complete heart block with pacemaker implantation Hyperlipidemia Hypokalemia (Not POA) Plan S/P L thoracentesis 02/15 with 300ml out; pleural fluid cultures/testing pending. Continue Lasix and aldactone. Continue BiPAP HS and upon discharge. CO2 chronically elevated. Encourage activity. I personally examined and assessed the patient. Agree with the above assessment and plan, with the addition of the following: Pt on home regimen of 3L per [place]. Currently off abx (was on unasyn x 5 days). Crackles on left. Persistent bilateral effusions on CXR. Will give 1 dose bumex 1mg IV x 1. Possible dismiss tomorrow. Place consult to IRU. Lenny Dunlap MD. DVT Prophylaxis: SCD's Resuscitation Status: Do Not Resuscitate - Physician Narrative Narrative: Date: 02/16/18 Time: 1238 Hospital Course Summary Disclaimer: The visit summary below is not to be considered part of the above Progress Note. Hospital Course: 02/09/18 Admit, IP given her significant hypoxia. She desaturated to 60% on arrival as her portable oxygen ran out enroute. Stay expected to exceed 2 midnights given her acute hypoxic resp failure and comorbidities listed above. CBC, CMP, BNP, lactate, procal, BC x2. DuoNeb, acapella and O2 titration to keep sats >90%. On 3L home O2. Start Unasyn for probable aspiration pneumonia. Weight is stable compared to previous dismissal weight. Will hold off on decision to diurese until labs are resulted. I&Os and daily weights. SCD's for DVT ppx. Omeprazole for GI ppx and GERD DNR 02/10/18 Day 2 Unasyn for aspiration PNA coverage. Dr More saw pt and recommends gentle diureses, repeat CXR and home vent. Give Lasix 20mg IV now. Dr. More/SABINE will get the home vent set up. Requiring 5 L 02 (Home requirements=3L). Modified barium swallow performed d/t concern by speech therapy of aspiration. Fortunately no aspiration was seen. Speech rec soft diet and thin liquids. 02/11/18 Continue with Unasyn for aspiration coverage - Day 3. Will continue with Lasix 20mg IV daily to help motivate fluid - CXR this am showing little change. Replace potassium - with give 20mEg x1 today, continuing 20mEq with breakfast tomorrow. Tolerated BiPAP well last night - pulm working on outpatient vent for patient. 02/12/18 Continue with Unasyn for aspiration coverage - Day 4. Will give Lasix 40mg x1 this afternoon to help motivate fluid. Weight up from admission. Encourage therapy to improve functional status. Encourage activities. 02/13/18 Can stop Unasyn - did have 5 day course - not seeing obvious aspiration pneumonia, but was highly suspected. Repeat Lasix 40mg x1 this afternoon to help motivate fluid. CXR not showing much change. Diamox 500mg x1 at noon. Extra KCl this evening. Encourage continued BiPAP use at night - patient tolerating well. 02/14/18 Lasix 40 mg IV x1 again today (cont oral Lasix and spironolactone). Repeat CXR in am -- per pulm, will proceed with thoracentesis if effusion is not improved. 02/15/18 OP DAY: Left thoracentesis D/W Carol Ann Landon APRN -- likely proceed with thoracentesis as repeat CXR shows essentially no change in effusions. Also noted possible worsening of CHF - may still need additional IV diuresis. BMP stable, CO2 39 - chronic. Continue BiPAP HS - pulm recommending home vent to mask. D/W CM. 02/16/18 S/P L thoracentesis 02/15 with 300ml out; pleural fluid cultures/testing pending. Continue Lasix and aldactone. Continue BiPAP HS and upon discharge. CO2 chronically elevated.
[2018-02-16] MEDS: ASPIRIN *EC* 81 MG TABLET PO SCH (13:02)
[2018-02-16] MEDS: ACETAMINOPHEN 500 MG TABLET PO SCH (20:52)
[2018-02-16] MEDS: CETIRIZINE 10 MG TABLET PO SCH (20:53)
[2018-02-16] MEDS: ATORVASTATIN 10 MG TABLET PO SCH (20:54)
[2018-02-17] MEDS: OMEPRAZOLE 20 MG CAPSULE PO SCH (06:46)
[2018-02-17] MEDS: BUDESONIDE INH.SOLN 0.5mg/2ml NEB AEROSOL SCH (06:57)
[2018-02-17] MEDS: ALBUTEROL/IPRATROPIUM 2.5mg-0.5mg/3ml NEB AEROSOL SCH ×3 (06:57→14:13)
[2018-02-17 07:45] VITALS: BP 140/65; PULSE 69; TEMP 97.3
[2018-02-17] MEDS: LUTEIN 20 MG CAPSULE PO SCH (08:28)
[2018-02-17] MEDS: POLYETHYL GLYCOL 3350 17gm PACKET PO SCH (08:28)
[2018-02-17] MEDS: TOLTERODINE 2 MG TABLET PO SCH (08:29)
[2018-02-17] MEDS: SPIRONOLACTONE 25 MG TABLET PO SCH (08:29)
[2018-02-17] MEDS: SALINE 0.65% NASAL SPRAY 44 ML BOTTLE EA NOSTRIL SCH ×2 (08:30→13:06)
[2018-02-17] MEDS: MULTI-VITAMIN + MINERAL TABLET PO SCH (08:30)
[2018-02-17] MEDS: FUROSEMIDE 40 MG TABLET PO SCH (08:30)
[2018-02-17] MEDS: CALCIUM 600 + VIT D 400 TABLET PO SCH (08:30)
[2018-02-17] MEDS ORDERED: acetaZOLAMIDE SR 500 MG CAPSULE PO ONE (09:56)
[2018-02-17 10:26] VITALS: RESP 18
--- NOTE | 2018-02-17 11:29 | Pulmonology Progress Note ---
Subjective Principal diagnosis: CHF, pleural effusion Interval history: patient is doing well no concerns. using BIPAP at night and O2 by NC during the day. Exam Vital signs: Temperature 97.3 F 02/17/18 07:29 Pulse Rate 69 02/17/18 07:29 Respiratory Rate 18 02/17/18 10:23 Blood Pressure 140/65 H 02/17/18 07:29 Pulse Oximetry 95 02/17/18 10:23 Inpatient Medications: Generic Name Dose Route Start Last Admin Trade Name Freq PRN Reason Stop Dose Admin Acetaminophen 650 mg 02/09/18 22:22 Tylenol PO QID PRN Discomfort Acetaminophen 1,000 mg 02/10/18 21:00 02/16/18 20:52 Tylenol PO 1,000 mg HS BANDAR Administration Acetaminophen 500 - 1,000 mg 02/09/18 23:08 Tylenol PO BID PRN Pain Hydrocodone Bitart/Acetaminophen 1 tab 02/09/18 23:08 02/15/18 13:40 Max 5/325 PO 1 tab Q6HR PRN Administration Pain Al Hydroxide/Mg Hydroxide 30 ml 02/10/18 06:55 Maalox Plus PO Q4H PRN Indigestion Albuterol/Ipratropium 3 ml 02/09/18 17:29 02/09/18 17:29 Duoneb AEROSOL 3 ml RTQID PRN Administration Albuterol/Ipratropium 3 ml 02/09/18 19:00 02/17/18 10:21 Duoneb AEROSOL 3 ml RTQID BANDAR Administration Aspirin 81 mg 02/10/18 12:00 02/16/18 13:02 Ecotrin PO 81 mg NOON BANDAR Administration Atorvastatin Calcium 10 mg 02/10/18 21:00 02/16/18 20:54 Lipitor PO 10 mg HS BANDAR Administration Budesonide 0.5 mg 02/09/18 21:00 02/17/18 06:57 Pulmicort Inhalation AEROSOL 0.5 mg BID BANDAR Administration Calcium/Vitamin D 1 tab 02/10/18 09:00 02/17/18 08:30 Caltrate + D PO 1 tab BID BANDAR Administration Cetirizine HCl 10 mg 02/10/18 21:00 02/16/18 20:53 Zyrtec PO 10 mg HS BANDAR Administration Cholecalciferol 2,000 unit 02/10/18 09:00 02/17/18 08:28 Vit. D-3 PO 2,000 unit DAILY BANDAR Administration Furosemide 40 mg 02/10/18 09:00 02/17/18 08:30 Lasix 40 Mg Tab PO 40 mg DAILY BANDAR Administration Guaifenesin/Dextromethorphan 10 ml 02/09/18 22:20 02/14/18 10:56 Robitussin Dm PO 10 ml Q4-6HR PRN Administration Cough /Congestion Lorazepam 0.5 mg 02/09/18 22:20 Ativan PO HS PRN Anxiety Lutein 20 mg 02/10/18 09:00 02/17/18 08:28 PO 20 mg DAILY BANDAR Administration Magnesium Hydroxide 15 - 30 ml 02/09/18 23:08 Mom PO DAILY PRN Constipation Menthol 1 lozenge 02/10/18 06:57 Ricola Sf MM Q2H PRN Cough Multivitamins/Minerals 1 tab 02/10/18 09:00 02/17/18 08:30 Therapeutic - M PO 1 tab DAILY BANDAR Administration Omeprazole 40 mg 02/10/18 06:30 02/17/18 06:46 Prilosec PO 40 mg ACB BANDAR Administration Ondansetron HCl 4 mg 02/09/18 23:08 Zofran Po PO Q8H PRN Nausea Polyethylene Glycol 17 gm 02/10/18 09:00 02/17/18 08:28 Miralax PO 17 gm DAILY BANDAR Administration Sodium Chloride 500 ml 02/10/18 23:53 02/12/18 12:00 Normal Saline IV 500 ml PRN PRN Administration Sodium Chloride 500 ml 02/12/18 12:47 Normal Saline IV PRN PRN Sodium Chloride 2 spray 02/12/18 17:17 02/17/18 08:30 Deep Sea Nasal Moisturizing [place] EA NOSTRIL 2 spray QID BANDAR Administration Sodium Chloride 10 - 80 ml 02/14/18 07:50 02/14/18 12:30 Iv Flush IV 20 ml PRN PRN Administration Flushing Spironolactone 25 mg 02/10/18 09:00 02/17/18 08:29 Aldactone 25 Mg PO 25 mg DAILY BANDAR Administration Tolterodine Tartrate 1 mg 02/10/18 09:00 02/17/18 08:29 Detrol PO 1 mg BID BANDAR Administration Discontinued Medications Generic Name Dose Route Start Last Admin Trade Name Freq PRN Reason Stop Dose Admin Acetazolamide 250 mg 02/10/18 08:00 02/10/18 09:50 Diamox 250 Mg PO 02/10/18 08:01 250 mg O ONE Administration Acetazolamide 500 mg 02/13/18 12:22 02/13/18 12:36 Diamox 500 Mg Sequels PO 02/13/18 12:23 500 mg O ONE Administration Acetazolamide 500 mg 02/17/18 09:56 02/17/18 10:50 Diamox 500 Mg Sequels PO 02/17/18 09:57 500 mg O ONE Administration Albuterol/Ipratropium 3 ml 02/09/18 19:00 Duoneb AEROSOL RTQID PRN Bumetanide 1 mg 02/16/18 15:38 02/16/18 17:50 Bumex 1 Mg/4 Ml Inj. IVP 02/16/18 15:39 1 mg O ONE Administration Furosemide 40 mg 02/10/18 09:00 Lasix 40 Mg Tab PO DAILY BANDAR Furosemide 20 mg 02/10/18 17:43 02/10/18 18:44 Lasix 20 Mg/2 Ml IVP 02/10/18 17:44 20 mg O ONE Administration Furosemide 20 mg 02/11/18 11:00 02/12/18 09:21 Lasix 20 Mg/2 Ml IVP Not Given DAILY BANDAR Furosemide 40 mg 02/12/18 14:00 02/12/18 14:02 Lasix 40 Mg/4 Ml IVP 02/12/18 14:01 40 mg O ONE Administration Furosemide 40 mg 02/13/18 14:00 02/13/18 15:33 Lasix 40 Mg/4 Ml IVP 02/13/18 14:01 40 mg O ONE Administration Furosemide 40 mg 02/14/18 11:28 02/14/18 12:26 Lasix 40 Mg/4 Ml IVP 02/14/18 11:29 40 mg O ONE Administration Guaifenesin/Dextromethorphan 10 ml 02/09/18 23:08 Robitussin Dm PO Q6H PRN PRN orders Ampicillin Sodium/Sulbactam 100 mls @ 200 mls/hr 02/09/18 18:00 02/13/18 12: 22 Sodium 3 g/ Sodium Chloride IV Infused Q6H BANDAR Infusion Lorazepam 0.5 mg 02/09/18 23:08 Ativan PO HS PRN anxiety Non-Formulary Medication 1 tab 02/10/18 09:00 Calcium Carb/Vitamin D3/Vit K1 [Viactiv Soft Chew] PO BID BANDAR Non-Formulary Medication 10 mg 02/10/18 21:00 Cetirizine Hcl [Zyrtec] PO HS [facility] Non-Formulary Medication 2,000 mg 02/10/18 09:00 Cholecalciferol (Vitamin D3) [Vitamin D3] PO DAILY BANDAR Non-Formulary Medication 1 lozenge 02/09/18 23:08 Dextromethorphan Hbr/B-Jhonny [Cepacol Sorethroat-Cough Angela] PO Q2HR PRN Sore throat Non-Formulary Medication 20 mg 02/10/18 09:00 Lutein [Lutein] PO DAILY BANDAR Non-Formulary Medication 30 ml 02/09/18 23:08 Mag Hydrox/Aluminum Hyd/Simeth [Alum-Mag Hydroxide-Simeth Liq] PO Q4H PRN Epigastric distress Non-Formulary Medication 1 tab 02/10/18 12:00 Multivitamin [One Daily Multivitamin] PO NOON BANDAR Non-Formulary Medication 40 mg 02/10/18 06:30 Omeprazole [Omeprazole] PO ACB BANDAR Non-Formulary Medication 1 mg 02/10/18 09:00 Tolterodine Tartrate [Detrol] PO BID [facility] Potassium Chloride 20 meq 02/11/18 12:30 02/11/18 12:37 Micro-K 10 Meq Capsule PO 02/11/18 12:31 20 meq O ONE Administration Potassium Chloride 20 meq 02/11/18 17:30 02/11/18 18:16 Micro-K 10 Meq Capsule PO 02/11/18 17:31 20 meq O ONE Administration Potassium Chloride 20 meq 02/12/18 08:00 02/16/18 10:45 Micro-K 10 Meq Capsule PO Not Given WB [facility] Potassium Chloride 10 meq 02/13/18 17:30 02/13/18 17:41 Micro-K 10 Meq Capsule PO 02/13/18 17:31 10 meq O ONE Administration Potassium Chloride 10 meq 02/13/18 15:13 02/13/18 16:00 K-Dur 10 Meq Tablet PO 02/13/18 15:14 10 meq O ONE Administration Potassium Chloride 20 meq 02/14/18 11:29 02/14/18 12:26 K-Dur 20 Meq Tablet PO 02/14/18 11:30 20 meq O ONE Administration Spironolactone 25 mg 02/10/18 09:00 Aldactone 25 Mg PO DAILY BANDAR - Constitutional no acute distress, obese - Routine HEENT Exam Head: Present: normocephalic, atraumatic - Routine Respiratory Exam Present: decreased breath sounds. Absent: accessory muscle use - Routine Cardiovascular Exam Present: RRR - Routine Back/Spine/Pelvis Exam Back/Spine: Present: kyphosis Results - Laboratory Findings Laboratory: Laboratory Results - last 48 hr 02/15/18 02/16/18 02/16/18 16:50 04:25 04:28 WBC 5.6 RBC 3.79 L Hgb 11.4 L Hct 39.1 MCV 103.2 H MCH 30.1 MCHC 29.2 L RDW Std Deviation 54.9 H Plt Count 141 MPV 10.5 Immature Gran % (Auto) 0.2 Neut % (Auto) 67.1 H Lymph % (Auto) 21.1 L [place] % (Auto) 8.0 Eos % (Auto) 3.4 Baso % (Auto) 0.2 Neut # (Auto) 3.8 Lymph # (Auto) 1.2 [place] # (Auto) 0.5 Eos # (Auto) 0.2 Baso # (Auto) 0.0 Abs Immat Gran (auto) 0.01 Turbidity Sodium Potassium Chloride Carbon Dioxide Anion Gap BUN Creatinine Estimated Creat Clear GFR Calculation BUN/Creatinine Ratio Glucose Calculated Osmolality Calcium Icterus Index Total Protein 5.9 L Specimen Hemolysis Fluid Type Pleural Fluid Total Protein <3.0 02/16/18 02/17/18 04:28 09:26 WBC RBC Hgb Hct MCV MCH MCHC RDW Std Deviation Plt Count MPV Immature Gran % (Auto) Neut % (Auto) Lymph % (Auto) [place] % (Auto) Eos % (Auto) Baso % (Auto) Neut # (Auto) Lymph # (Auto) [place] # (Auto) Eos # (Auto) Baso # (Auto) Abs Immat Gran (auto) Turbidity < 20 < 20 Sodium 141 145 Potassium 4.5 3.6 D Chloride 96 L 95 L Carbon Dioxide 38 H 41 H* Anion Gap 7 9 BUN 25.0 H 20.0 H Creatinine 0.7 0.8 Estimated Creat Clear 38 38 GFR Calculation 79 68 BUN/Creatinine Ratio 36 H 25 Glucose 97 107 Calculated Osmolality 275 282 H Calcium 9.2 9.5 Icterus Index < 2 < 2 Total Protein Specimen Hemolysis 42 H < 15 Fluid Type Fluid Total Protein - Diagnostic Findings Chest x-ray: report reviewed Assessment and Plan (1) Pleural effusion Status: Acute Assessment and plan: slightly improved by CXR 02/16. Post left thoracentesis, 300 ML Current Visit: Yes (2) Atelectasis Status: Acute Assessment and plan: IS as tolerated Current Visit: No (3) Acute and chronic respiratory failure with hypercapnia Status: Acute Assessment and plan: She has recurrent exacerbations of her chronic hypercapnic respiratory failure. I recommend a home vent to mask to improve her hypercapnia, reduced the risk of hospitalization and . Currently tolerating BIPAP ST 15/5, rate 14, Fio2 40%. Current Visit: Yes - Time Spent With Patient Total time spent is greater than 50% in coordination of care (as documented) at patient's floor/unit and/or counseling patient: less than 15 minutes
[2018-02-17] MEDS: ASPIRIN *EC* 81 MG TABLET PO SCH (13:06)
--- NOTE | 2018-02-17 13:25 | Extended Care Facility Orders ---
Admission Orders Admit to:: [facility] Allergies/Adverse Reactions: Allergies No Known Allergies Allergy (Verified 02/09/18 15:30) Admitting Diagnosis: Pneumonia Admitting Physician: Tashi Dunlap MD Attending Physician: Tashi Dunlap MD Code Status: Do Not Resuscitate Anticiapted Length of Stay: 30 days or less Rehab Potential: good Rehab Prognosis: good Diet: Regular Diet Food Consistency: mechanical soft May use Facility Protocol or Standing Orders: Yes May have flu vaccine: Yes Evaluations/Treatment: PT, OT, as needed [facility] Certification: I certify that SNF services are required to be given on an inpatient basis because of the patient's need for fpc care on a continuing basis for the condition(s) for which he/she received inpatient hospital services prior to his/her transfer to the SNF. SNF inpatient care is necessary for the following reasons: Indication for [facility]: Teach CHF, Teach COPD Management - Additional Information In Event of Arrest: Do Not Start CPR Resident is Aware of Diagnosis: Yes Additional Orders: 3L O2 during the day. BiPAP at night: ST 15/5, rate 14, Fio2 40%
--- NOTE | 2018-02-17 13:26 | Discharge Summary ---
Discharge Information Date of admission: 02/09/18 17:46 Anticipated date of discharge: 02/17/18 Attending Physician: Tashi Dunlap MD Primary care physician: Charles Burns MD Consults: Consulting Provider: Marcelo More Reason For Exam: chronic hypoxic respiratory failure - Discharge Diagnosis (1) Acute on chronic respiratory failure with hypoxemia Status: Chronic Acute (on chronic) hypoxic respiratory failure Probable aspiration pneumonia Pleural effusions - Moderate left and small right - s/p thoracentesis on with 300 mL out. 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 MODIFIED BAR. SWALLOW STUDY on 02/10/18: No aspiration seen. - Laboratory Labs: 02/16/18 04:28 02/17/18 09:26 - Microbiology Microbiology 02/15/18 16:50 Pleural Fluid Gram Stain - Final 02/15/18 16:50 Pleural Fluid Body Fluid Culture - Preliminary No Growth After 1 Day 02/09/18 19:07 Peripheral/Iv Start Blood Culture - Final No Growth After 5 Days 02/09/18 19:08 Peripheral/Iv Start Blood Culture - Final No Growth After 5 Days 02/11/18 14:07 Sputum, Cf Patient Gram Stain - Final 02/11/18 14:07 Sputum, Cf Patient Sputum Culture - Final 02/10/18 21:10 Sputum, Expectorated Gram Stain - Final 02/10/18 21:10 Sputum, Expectorated Sputum Culture - Final Pathology: No malignant cells seen - Radiology Radiology: Date of Exam: 02/11/18 PROCEDURE: CHEST 2-VIEWS UPRIGHT (PA & LAT) FINDINGS: Moderate left and small right pleural effusions with lower lobe airspace disease, not significantly changed in the prior study. No pneumothorax. Cardiac silhouette and mediastinal contours are stable. Left pacemaker. Impression: No significant change. = = = = = = = = = = = = = = = = = = = = = = = = = = = = = = = = = = = = = = = = = = = = = = = = = = = = = = = = = = = Date of Exam: 02/13/18 PROCEDURE: XR chest 1V: Impression: Stable pleural effusions. = = = = = = = = = = = = = = = = = = = = = = = = = = = = = = = = = = = = = = = = = = = = = = = = = = = = = = = = = = = Date of Exam: 02/14/18 EXAM: XR chest 1V IMPRESSION: Persistent small to moderate-sized bilateral pleural effusions with basilar atelectatic changes or infiltrates. Date of Exam: 02/15/18 PROCEDURE: XR chest 1V: Impression: Stable pleural effusions and moderate congestive failure. = = = = = = = = = = = = = = = = = = = = = = = = = = = = = = = = = = = = = = = = = = = = = = = = = = = = = = = = = = = Date of Exam: 02/15/18 PROCEDURE: XR chest 1V: Findings: Interval thoracentesis with decrease in left pleural fluid. Right effusion is slightly larger. Lungs are hypoinflated. No pneumothorax. Impression: No pneumothorax. = = = = = = = = = = = = = = = = = = = = = = = = = = = = = = = = = = = = = = = = = = = = = = = = = = = = = = = = = = = Date of Exam: 02/16/18 PROCEDURE: XR chest 1V: Findings: Decreased pleural effusions with improving aeration of the right lung. Persistent bilateral infiltrates and edema. No pneumothorax. Impression: Decreasing pleural effusions. History of Present Illness HPI: Patient is an 87-year-old female well known to the hospitalist service from previous admissions. She woke up this morning and felt short of breath. She states last night she felt completely fine. She states her oxygen saturation on her normal 3 L of oxygen this morning was in the 80s. It improved following nebulizer treatment. She went in to see her PCP in the office and chest x-ray showed worsening right basilar airspace disease possibly representing increasing compressive atelectasis from the effusion or superimposed pneumonia/ aspiration. She also has persistent congestive failure with increasing right pleural fluid. She also has a reported low-grade fever of 100. She states her cough is worse than usual and she does feel more tight and wheezy than usual. She's not having any more of a productive cough than what she usually does. She did have some nausea this morning with eating. Objective Vital signs: Temperature 97.3 F 02/17/18 07:29 Pulse Rate 69 02/17/18 07:29 Respiratory Rate 18 02/17/18 10:23 Blood Pressure 140/65 H 02/17/18 07:29 Pulse Oximetry 95 02/17/18 10:23 Height/Weight/BMI: Height 1.63 m Weight 74.1 kg Body Mass Index 27.9 - Constitutional Present: no acute distress, well nourished, well developed - Routine HEENT Exam Head: Present: normocephalic Eye: Present: PERRL. Absent: conjunctival icterus, scleral injection - Routine Respiratory Exam Present: decreased breath sounds (B/L bases), crackles (LLL) - Routine Cardiovascular Exam Present: RRR, S1, S2, murmur - Routine Abdominal Exam Present: soft, normoactive bowel sounds, non distended, non tender - Routine Extremities Exam Present: no edema - Routine Back/Spine/Pelvis Exam Back/Spine: Present: kyphosis - Routine Skin Exam Present: intact, dry, warm - Routine Neurological Exam Present: alert, oriented X3, normal speech - Routine Psychiatric Exam Present: normal affect, normal thought process, cooperative Hospital Course This is a general summary of the patient's hospital course. For more details refer to the complete medical record. I personally examined and assessed the patient. Agree with the above assessment and plan, with the addition of the following: Agree with above exam and plan. Pt requiring O2 chronically. Tolerating oral intake. +crackles on exam. Restrict fluid intake to 1500ml/day. Check daily weights adn if increasing will need to check bmp and likely increase diuresis. Will need BiPAP at night and O2 per nasal cannula during the day. Check lab in 1 week and then in 1 month. Physician to follow. Lenny Dunlap MD. Hospital course: 02/09/18 - ADMIT, INPATIENT She desaturated to 60% on arrival as her portable oxygen ran out en route. DuoNeb, acapella and O2 titration to keep sats >90%. On 3L home O2. Start Unasyn for probable aspiration pneumonia. I&Os and daily weights. DNR 02/10/18 Dr More recommends gentle diuresis & home vent. Gave Lasix 20mg IV. Requiring 5 L 02 (Home requirements=3L). Modified barium swallow performed d/t concern by speech therapy of aspiration. Fortunately no aspiration was seen. Speech rec soft diet and thin liquids. 02/11/18 Continue with Lasix 20mg IV daily to help motivate fluid - CXR this am showing little change. Tolerated BiPAP well last night Replace potassium - with give 20mEg x1 today, continuing 20mEq with breakfast tomorrow. 02/12/18 Lasix 40mg x1 this afternoon to help motivate fluid. Weight up from admission. 02/13/18 DC Unasyn - not seeing obvious aspiration pneumonia, but was highly suspected. Repeat Lasix 40mg x1. CXR not showing much change. Diamox 500mg x1 at noon. Extra KCl this evening. 02/14/18 Lasix 40 mg IV x1 again today (cont oral Lasix and spironolactone). 02/15/18 OP DAY: Left thoracentesis BMP stable, CO2 39 - chronic. Continue BiPAP HS - pulm recommending home vent to mask/BiPAP HS. 02/16/18 Continue Lasix and aldactone. Bumex given IV. Continue BiPAP HS and upon discharge. CO2 chronically elevated. 02/17/18: DISCHARGE TO SNF CO2 41, Diamox given. Renal status stable. Stable for DC to SNF. Recommend daily weights, 1500 mL/day fluid restriction. O2 @ 3L during the day & BiPAP HS: ST 15/5, rate 14, Fio2 40% BMP in 1 week. F/U with Dr. Burns in 1 week as well. Time spent with patient: greater than 35 minutes External Problems Reviewed(CCD)?: Yes Resuscitation Status: Do Not Resuscitate Discharge Plan - Discharge Disposition Discharge Date: 02/17/18 Disposition: 03 To SNU Not [facility] (SNF) *Condition: Stable Reason For Visit (Visit label in EMR): Pneumonia - Discharge Medications *Discharge Medications: Continue Lutein 20 mg PO DAILY #0 Cetirizine HCl [Zyrtec] 10 mg PO HS #0 Acetaminophen [Acetaminophen Extra Strength] 1,000 mg PO HS #0 tab Furosemide [Lasix 40 mg Tab] 40 mg PO DAILY PEG 3350 17gm PACKET [Miralax] 17 gm PO DAILY Magnesium Hydroxide [Milk of Magnesia] 15 - 30 ml PO DAILY PRN PRN Reason: Constipation Simethicone 125 mg PO HS Mag Hydrox/Aluminum Hyd/Simeth [Alum-Mag Hydroxide-Simeth Liq] 30 ml PO Q4H PRN PRN Reason: Epigastric Distress Guaifenesin/Dextromethorphan [Guaifenesin Dm Syrup] 10 ml PO Q6H PRN PRN Reason: Prn Orders Acetaminophen [Tylenol] 500 - 1,000 mg PO BID PRN PRN Reason: Pain Albuterol/Ipratropium [Duoneb] 1 unit AEROSOL TID Budesonide 0.5 mg IH BID Dextromethorphan HBr/B-Jhonny [Cepacol Sorethroat-Cough Angela] 1 lozenge PO Q2HR PRN PRN Reason: Sore Throat Peg 3350 238 G Bottle [Miralax] 17 gm PO DAILY PRN PRN Reason: Constipation Calcium Carb/Vitamin D3/Vit K1 [Viactiv Soft Chew] 1 tab PO BID Atorvastatin [Lipitor] 10 mg PO HS [place] Oil 1,000 mg PO DAILY Multivitamin [One Daily Multivitamin] 1 tab PO NOON Tolterodine Tartrate [Detrol] 1 mg PO BID Hydrocodone/APAP 5/325 [[place] 5/325] 1 tab PO Q6HR PRN #20 tab PRN Reason: Pain Omeprazole 40 mg PO ACB #0 Cholecalciferol (Vitamin D3) [Vitamin D3] 2,000 mg PO DAILY #0 Spironolactone [Aldactone] 25 mg PO DAILY Ondansetron Tab [Zofran Po] 4 mg PO Q8H PRN PRN Reason: Nausea Aspirin [Adult Aspirin] 81 mg PO NOON Guaifenesin/Dextromethorphan [Robitussin Cough-Chest Dm Liq] 10 ml PO PRN #0 guaiFENesin [Mucinex] 1,200 mg PO PRN #0 LORazepam [Ativan] 0.5 mg PO HS PRN #10 tab PRN Reason: anxiety - Discharge Packet/Instructions *Diet: Regular diet, mechanical soft consistency *Activity: PT/OT *Pain Management/Treatment: Tylenol and/or Henefer PRN *Wound Care: n/a Additional Instructions: 3L O2 during the day. BiPAP at night: ST 15/5, rate 14 , Fio2 40% *Expected Signs/Symptoms: Shortness of breath, likely worse with activity; cough *Notify Physician if: Increased work of breathing, fever, chest pain, confusion , vomiting or aspiration, fall, or any new concern *During Business Hours Contact: Dr. Burns's office, or if a breathing question contact Dr. More's office. *After Business Hours Contact: The on-call provider for Dr. Burns *Pending Lab/Results: No Pending Lab Outpatient Orders: BMP - Basic Metabolic - [facility] Time Frame: 1 Week, Location: None Selected - Referrals/Follow Up *Referrals/Follow Up: Marcelo More MD [Physician] - 2 Weeks Charles Burns MD [Primary Care Provider] - 1 Week - Patient Handouts Patient Handouts: Pleural Effusion (DC), Pneumonia (GEN) - Dismissal Complete Discharge Instructions are:: Complete Physician Narrative - Narrative Attestation Narrative: Date: 02/17/18 Time: 8033
[2018-02-17 14:17] VITALS: O2SAT 96
--- NOTE | 2018-02-17 14:29 | Extended Care Facility Orders ---
Admission Orders Admit to:: [facility] Allergies/Adverse Reactions: Allergies No Known Allergies Allergy (Verified 02/09/18 15:30) Admitting Diagnosis: Pneumonia Admitting Physician: Tashi Dunlap MD Attending Physician: Tashi Dunlap MD Code Status: Do Not Resuscitate Anticiapted Length of Stay: 30 days or less Rehab Potential: good Rehab Prognosis: good Diet: 02/09/18 Breakfast Regular Diet [DIET] Diet Modifications: mechanical soft Food Consistency: MECSOF 1500ml fluid restriction. May use Facility Protocol or Standing Orders: Yes May have flu vaccine: Yes Evaluations/Treatment: PT, OT, as needed [facility] Certification: I certify that SNF services are required to be given on an inpatient basis because of the patient's need for retirement care on a continuing basis for the condition(s) for which he/she received inpatient hospital services prior to his/her transfer to the SNF. SNF inpatient care is necessary for the following reasons: Indication for [facility]: Teach CHF, Teach COPD Management - Additional Information In Event of Arrest: Do Not Start CPR Referrals: Marcelo More MD [Physician] - 2 Weeks Charles Burns MD [Primary Care Provider] - 1 Week Additional Orders: 3L O2 during the day. BiPAP at night: ST 15/5, rate 14, Fio2 40%
== END 2018-02-17 15:25 | DRG 291 ==
LOC: MED → SUATTDRO 17:46
PROVIDERS: ADMIT Internal Medicine; ATTEND Family Medicine